=== PATIENT | male | born 1965 | race Caucasian/White ===

== ENCOUNTER 2019-12-01 16:21 | Inpatient (IN) | payer MEDICARE, SELFPAY ==
[2019-12-01] VITALS (11 sets, daily range): BP systolic 128–159; BP diastolic 65–102; PULSE 70–88; RESP 16–20; TEMP 36.3–36.4; O2SAT 95–100; BMI 29.7
--- NOTE | 2019-12-01 16:32 | ED_ITS ---
Entered by Lou Jamison, acting as scribe for Suzette Rob DO HPI - Chest Pain General: Chief Complaint: Chest Pain Stated Complaint: chest pressure, neck pain Time Seen by Provider: 12/01/19 16:31 Source: patient Mode of arrival: ambulatory Limitations: no limitations History of Present Illness: HPI narrative: 54 yo Male presents to ED with complaint of chest pain. Pt states that his pain is in his upper chest/neck area. Pt states that this does not feel like his prior cardiac episodes. Pt states the pain is on both sides of his neck and started about an hour ago. Pt states that his neck pain started when his heart rate sped up. Pt states that he has had a recent echocardiogram and stents placed 2 months ago. MD complaint: chest pain Onset (ago): hour(s) Timing of current episode: constant and still present Prior episodes: No Pain location: other (neck) Pain radiation: neck Pain scale (0-10): 6 Relieving factors: nothing Exacerbating factors: nothing Associated symptoms: Reports nausea and palpitations; Deny dyspnea or fever(s) Treatment prior to arrival: none Review of Systems Const: Denies: fever, chills, change in appetite or malaise Eyes: Denies: change in vision, blurry vision, eye discharge or eye redness ENMT: Denies: throat pain, uvular edema, painful swallowing, mouth pain, dental pain, nasal congestion or facial/sinus pain Card: Reports: chest pain and palpitations Resp: Denies: shortness of breath, productive cough, wheezing or coughing up blood GI: Reports: nausea : Denies: flank pain, painful urination, urinary frequency, urinary urgency or urinary hesitancy Musc: Reports: neck pain; Denies: back pain, extremity pain or extremity swelling Skin/Breast: Denies: rash, itching, redness, yellow skin or dry skin Neuro: Denies: headache, numbness in extremities, weakness in extremities, changes in sensation, lack of coordination or difficulty walking Psych: Denies: anxiety, depression, mood swings, panic attacks, sleeping less, suicidal ideation or homicidal ideation Endo: Denies: excessive urination, excessive thirst or tired all the time Richar/Lymph: Denies: easy bruising, petechiae or enlarged lymph nodes All/Imm: Denies: hives, throat swelling, facial swelling, acute wheezing or seasonal allergies PFSH ED PFSH: Statuses (acute, chronic, etc) shown below reflect problem list status as previously entered and may not be historically accurate Medical History HTN (hypertension) (Acute) Hypertriglyceridemia (Acute) ICD (implantable cardioverter-defibrillator) in place (Acute) Ischemic cardiomyopathy (Acute) Ventricular tachycardia (Acute) Surgical History S/P CABG (coronary artery bypass graft) (Acute) Family History Mother Hypertension Father Hypertension Social History Smoking and tobacco status: former smoker Physical Exam Const: COMMON NORMALS: no apparent distress, oriented x3, no limitations, healthy appearing, alert and well nourished GENERAL APPEARANCE: cooperative, comfortable, well kempt and well developed ORIENTATION/CONSCIOUSNESS: Yes awake, Yes oriented to person, Yes oriented to place and Yes oriented to time HENMT: COMMON NORMALS: normocephalic, head/scalp atraumatic, hearing grossly normal bilaterally, external ears normal, EAC's normal, TM's normal bilaterally, external nose normal, nasal mucous membranes and turbinates normal, moist oral mucous membranes, oropharynx normal, dentition normal and gingiva normal HEAD & SCALP: normal to inspection, normocephalic and atraumatic FACE & SINUS: normal facial exam NOSE: external nose normal and nasal mucous membranes and turbinates normal EXTERNAL EAR: Yes external ears normal EXTERNAL AUDITORY CANAL: EAC's normal TYMPANIC MEMBRANE: TM's normal bilaterally MOUTH: oral and palatal mucosa normal, lip normal and tongue normal THROAT: no uvular edema Eye: COMMON NORMALS: PERRL, EOMs intact bilaterally, conjunctivae normal, no scleral icterus and normal visual herbert by confrontation GENERAL EYE: normal appearance of both eyes and normal light reflex VISUAL ACUITY: Yes acuity normal ALIGNMENT: Yes alignment normal PERIORBITAL: periorbital findings normal EYELID: eyelids normal CONJUNCTIVA: Yes conjunctivae normal SCLERA: sclerae normal PUPIL: Yes PERRL and Yes accommodation reflex normal DIRECT OPHTHALMOSCOPY: Yes normal light reflex Neck/C-Spine: COMMON NORMALS: full ROM, no lymphadenopathy, supple, no meningeal signs and no JVD GENERAL: Yes normal visual inspection CAROTIDS: Yes normal carotid upstroke CERVICAL SPINE: Yes cervical ROM normal Lymph: LYMPHATIC: no lymphadenopathy noted Chest: COMMONS NORMALS: inspection of chest normal CHEST: Yes symmetrical chest wall rise Resp: COMMON NORMALS: normal respiratory effort, no retractions, no use of accessory muscles and clear to auscultation bilaterally EFFORT & INSPECTION: Yes able to speak in complete sentences and Yes symmetric chest movement AUSCULTATION: clear to auscultation bilaterally Cardio: COMMON NORMALS: no JVD, regular rate, regular rhythm, S1 normal heart sound, S2 normal heart sound, no murmurs and peripheral pulses 2+ throughout RATE: regular rate RHYTHM: regular rhythm HEART SOUNDS: S1 normal and S2 normal PERIPHERAL PULSES: pulses 2+ throughout GI: COMMON NORMALS: normal to inspection, nondistended, normoactive bowel sounds and non-tender : COMMON NORMALS: Yes no CVA tenderness BLADDER/KIDNEY EXAM: Yes no CVA tenderness Back/Pelvis: COMMON NORMALS: no CVA tenderness, thoracic and lumbar spine normal to inspection, no thoracic nor lumbar tenderness and thoraco-lumbar ROM normal Extremity: COMMON NORMALS: normal to inspection, full ROM, normal capillary refill, no calf tenderness and no pedal edema Neuro: COMMON NORMALS: oriented x3, CN's II-XII intact bilaterally, moves all extremities, no focal motor deficits, no sensory deficits noted and gait normal SENSORIUM/ORIENTATION: Yes alert, Yes oriented to person, Yes oriented to place and Yes oriented to time MENINGEAL SIGNS: Yes no meningeal signs SPEECH: speech normal GAIT: Yes normal gait MOTOR EXAM: strength 5/5 throughout, no pronator drift and no tremor noted Psych: COMMON NORMALS: mental status grossly normal, thought process normal, cooperative, affect normal, speech normal and activity/motor behavior normal APPEARANCE: Yes well kempt SPEECH: Yes normal speech THOUGHT PROCESS: normal thought process THOUGHT CONTENT: Yes normal thought content INSIGHT: insight good Skin: COMMON NORMALS: no rashes or lesions noted, no wounds, skin turgor normal and no jaundice GENERAL SKIN EXAM: no rashes or lesions noted and turgor normal Course ED course: Patient did well without further episodes of vtach after Lidocaine infusion. Labs essentially wnl, Dr Lau agrees to admit. Consultations: Consultation #1: Discussed with Dr Ron regarding dysrhythmia, advised Lidocaine, will consult with patient once admitted to medicine Vital Signs: Vital signs: Vital Signs Temperature 97.6 F 12/01/19 16:25 Pulse Rate 88 12/01/19 16:25 Respiratory Rate 18 12/01/19 18:01 Blood Pressure 159/102 12/01/19 16:25 Pulse Oximetry 98 12/01/19 16:25 MDM - Chest Pain Lab Data: Labs: Lab Results 12/01/19 12/01/19 12/01/19 Range/Units 16:35 16:35 16:35 WBC 8.6 (4.0-10.0) 10^3/ uL RBC 5.87 H (4.1-5.3) 10^6/u L Hgb 16.9 H (11.7-16.6) g/dL Hct 48.2 (42.0-52.0) % MCV 82.1 (80-94) fL MCH 28.8 (28.0-34.0) pg MCHC 35.1 (30.0-36.0) g/dL RDW 12.9 (12.1-15.1) % Plt Count 128 L (130-400) 10^3/c mm MPV 11.8 H (7.4-10.4) fL Neut % (Auto) 81.9 % Lymph % (Auto) 7.0 % [place] % (Auto) 8.3 % Eos % (Auto) 1.5 % Baso % (Auto) 0.5 % Neut # (Auto) 7.1 (1.8-7.7) 10^3/u L Lymph # (Auto) 0.6 L (0.8-4.8) 10^3/u L [place] # (Auto) 0.7 (0.2-0.9) 10^3/u L Eos # (Auto) 0.1 (0.0-0.8) 10^3/u L Baso # (Auto) 0.0 (0.0-0.1) 10^3/u L Nucleated RBC % (a uto) 0 % Nucleated RBCs # 0.0 /100WBC PT 13.50 H (10.5-13.3) SECO NDS INR 1.00 (0.8-1.2) APTT 29.2 (23.9-36.7) SECO NDS Sodium 130 L (136-145) mmol/L Potassium 3.9 (3.5-5.1) mmol/L Chloride 93 L (98-107) mmol/L Carbon Dioxide 22 (22-29) mmol/L Anion Gap 18.9 (5-19) BUN 11 (6-20) mg/dL Creatinine 0.7 (0.7-1.2) mg/dL GFR Calculation 116.7 (90-130) mL/min Glucose 245 H (65-115) mg/dL Calcium 9.8 (8.5-10.5) mg/dL Total Bilirubin 1.0 (0.15-1.2) mg/dL AST 19 (0-40) U/L ALT 24 (0-41) U/L Alkaline Phosphata se 79 (40-130) IU/L Troponin T Baselin e (0-15) ng/mL Total Protein 7.0 (6.6-8.7) g/dL Albumin 4.3 (3.5-5.2) g/dL Globulin 2.7 (1.3-4.6) g/dL 12/01/19 Range/Units 16:35 WBC (4.0-10.0) 10^3/ uL RBC (4.1-5.3) 10^6/u L Hgb (11.7-16.6) g/dL Hct (42.0-52.0) % MCV (80-94) fL MCH (28.0-34.0) pg MCHC (30.0-36.0) g/dL RDW (12.1-15.1) % Plt Count (130-400) 10^3/c mm MPV (7.4-10.4) fL Neut % (Auto) % Lymph % (Auto) % [place] % (Auto) % Eos % (Auto) % Baso % (Auto) % Neut # (Auto) (1.8-7.7) 10^3/u L Lymph # (Auto) (0.8-4.8) 10^3/u L [place] # (Auto) (0.2-0.9) 10^3/u L Eos # (Auto) (0.0-0.8) 10^3/u L Baso # (Auto) (0.0-0.1) 10^3/u L Nucleated RBC % (a uto) % Nucleated RBCs # /100WBC PT (10.5-13.3) SECO NDS INR (0.8-1.2) APTT (23.9-36.7) SECO NDS Sodium (136-145) mmol/L Potassium (3.5-5.1) mmol/L Chloride (98-107) mmol/L Carbon Dioxide (22-29) mmol/L Anion Gap (5-19) BUN (6-20) mg/dL Creatinine (0.7-1.2) mg/dL GFR Calculation (90-130) mL/min Glucose (65-115) mg/dL Calcium (8.5-10.5) mg/dL Total Bilirubin (0.15-1.2) mg/dL AST (0-40) U/L ALT (0-41) U/L Alkaline Phosphata se (40-130) IU/L Troponin T Baselin e 8 (0-15) ng/mL Total Protein (6.6-8.7) g/dL Albumin (3.5-5.2) g/dL Globulin (1.3-4.6) g/dL Discharge Plan Discharge Prescriptions: No Action aspirin 325 mg tablet 325 mg PO QDAY RF: 0 atorvastatin 80 mg tablet 80 mg PO QDAY RF: 0 clopidogrel [Plavix] 75 mg tablet 75 mg PO QDAY RF: 0 lisinopril 10 mg tablet 10 mg PO QDAY RF: 0 nitroglycerin [Nitrostat] 0.4 mg tablet, sublingual 0.4 mg SUBLINGUAL DIRECTED RF: 0 ranitidine HCl [Acid Control (ranitidine)] 150 mg tablet 150 mg PO BID RF: 0 sotalol 80 mg tablet 80 mg PO BID RF: 0 fenofibrate nanocrystallized [Tricor] 145 mg tablet 145 mg PO QDAY RF: 0 verapamil 120 mg capsule,ext rel. pellets 24 hr 120 mg PO QAM RF: 0 zolpidem 10 mg tablet 10 mg PO ONCE RF: 0 metformin 500 mg tablet 750 mg PO BID RF: 0 ranolazine [Ranexa] 500 mg tablet extended release 12 hr 250 mg PO BID RF: 0 Coding Level of Care Code ED Leno Sewer for Chg Fwd Exam Problem Focused The documentation recorded by the Yaquelin lucia Carmen, accurately reflects the service I personally performed and the decisions made by me, Suzette Rob, DO
--- NOTE | 2019-12-01 16:45 | XR_ITS ---
WS: [id number] ONE VIEW CHEST HISTORY: 54 years old Male with cp AP upright chest comparison 05/04/2019 FINDINGS: Accounting for lordotic technique, cardiomegaly and pulmonary venous congestion probably unchanged. P rior sternotomy and left chest single lead cardiac pacing device unchanged. No pneumothorax, pleural effusion, consolidation or atelectasis. No subdiaphragmatic free air. Well-visualized osseous structu res intact. XR/XR chest 1V portable [id number] IMPRESSION: No acute cardiopulmonary findings.
--- NOTE | 2019-12-01 16:45 | ECG_ITS ---
Measurements Intervals [place] Rate: 89 P: 59 NM: 216 QRS: 265 QRSD: 98 T: 74 QT: 377 QTc: 459 SINUS RHYTHM WITH FIRST DEGREE AV BLOCK POSSIBLE LEFT ATRIAL ENLARGEMENT [-0.1mV P WAVE IN V1/V2] INCOMPLETE RIGHT BUNDLE BRANCH BLOCK [90+ ms QRS DURATION, Compared to ECG 05/04/2019 06:15:28 Incomplete right bundle-branch block now present Sinus bradycardia no longer present Myocardial infarct finding no longer present Electronically Signed On 12-01-2019 22:17:21 HAND I [employer]ERMAL CUTTER by Anton Ron M.D. [email or web address]
[2019-12-01] MEDS: aspirin 81 mg Chew Tablet 324 MG PO (16:49)
[2019-12-01] MEDS: nitroglycerin 0.4 mg sublingual Tablet SUBLINGUAL (16:50)
[2019-12-01 17:18] LABS: Basophils % 0.5 %; Eosinophils # 0.1 10^3/uL (0.0-0.8); Eosinophils % 1.5 %; Hematocrit 48.2 % (42.0-52.0); Hemoglobin 16.9 g/dL (11.7-16.6); Lymphocytes # 0.6 10^3/uL (0.8-4.8); Mean Corpuscular HGB Conc 35.1 g/dL (30.0-36.0); Mean Corpuscular Hemoglobin 28.8 pg (28.0-34.0); Mean Corpuscular Volume 82.1 fL (80-94); Mean Platelet Volume 11.8 fL (7.4-10.4); Monocytes # 0.7 10^3/uL (0.2-0.9); Monocytes % 8.3 %; Neutrophils # 7.1 10^3/uL (1.8-7.7); Neutrophils % 81.9 %; Nucleated Red Blood Cells % 0 %; Platelet Count 128 10^3/cmm (130-400); Red Blood Count 5.87 10^6/uL (4.1-5.3); Red Cell Distribution Width 12.9 % (12.1-15.1); White Blood Count 8.6 10^3/uL (4.0-10.0)
[2019-12-01] MEDS: lidocaine drip 2,000 MG/500 ML PREMIX 15 MG IV (17:18)
[2019-12-01 17:25] LABS: Partial Thromboplastin Time 29.2 SECONDS (23.9-36.7)
[2019-12-01 17:26] LABS: Alanine Aminotransferase 24 U/L (0-41); Albumin Level 4.3 g/dL (3.5-5.2); Alkaline Phosphatase 79 IU/L (40-130); Anion Gap 18.9 (5-19); Aspartate Amino Transferase 19 U/L (0-40); Blood Urea Nitrogen 11 mg/dL (6-20); Calcium 9.8 mg/dL (8.5-10.5); Carbon Dioxide 22 mmol/L (22-29); Chloride 93 mmol/L (98-107); Globulin 2.7 g/dL (1.3-4.6); Glomerular Filtration Rate 116.7 mL/min (90-130); Glucose 245 mg/dL (65-115); Potassium 3.9 mmol/L (3.5-5.1); Sodium 130 mmol/L (136-145)
[2019-12-01 17:28] LABS: Troponin(5th) Baseline 8 ng/mL (0-15)
[2019-12-01] MEDS: morphine 4 mg/mL SDV 1 mL 2 MG IVP (18:01)
[2019-12-01] MEDS: sodium chloride 0.9% 1,000 ML 999 ML IV (18:32)
[2019-12-01 19:03] LABS: Troponin 5 2HR 9.41 ng/mL (0-15); Troponin 5 2HR Delta 1.41 ABS# (0-10)
--- NOTE | 2019-12-01 19:39 | CTR_ITS ---
PROCEDURE INFORMATION: Exam: CT Angiography Chest With Contrast Exam date and time: 12/01/2019 8:08 PM Age: 54 years old Clinical indication: Shortness of breath and tachypnea; Chest pain; Prior surgery; Surgery type: Stents, defib, pacemaker, open heart; Additional info: Chest pain, SOB, vtach TECHNIQUE: Imaging protocol: Computed tomographic angiography of the chest with intravenous contrast. 3D rendering: MIP and/or 3D reconstructed images were created by the technologist. Total DLP: 598.08 mGy-cm Radiation optimization: All CT scans at this facility use at least one of these dose optimization techniques: automated exposure control; mA and/or kV adjustment per patient size (includes targeted exams where dose is matched to clinical indication); or iterative reconstruction. Contrast material: OMNI 350; Contrast volume: 95 ml; Contrast route: IV; COMPARISON: CR XR chest 1V portable [id number] 12/01/2019 5:11 PM FINDINGS: Tubes, catheters and devices: A pacemaker device is present, and its leads are in appropriate position. Pulmonary arteries: There is no pulmonary embolus. Aorta: There is no aneurysm or dissection. Lungs: There are moderate emphysematous changes. There is very mild dependent atelectasis. Pleural space: Unremarkable. No pneumothorax. No pleural effusion. Heart: Sternotomy wires and mediastinal surgical clips are present, consistent with previous coronary arterial bypass grafting. Mediastinum: A small hiatal hernia is present. Liver: There is mild fatty infiltration liver. Gallbladder and bile ducts: There is cholelithiasis. No wall thickening or cholecystitis. Spleen: The spleen is enlarged measuring 16 cm in length. Lymph nodes: Unremarkable. No enlarged lymph nodes. Bones/joints: Unremarkable. No acute fracture. Soft tissues: Unremarkable. CT/CT angio chest PE protcl [id number] IMPRESSION: 1. There is no pulmonary embolus. Unremarkable aorta. 2. Incidental cholelithiasis.splenomegaly. Radiation Dose CTDIVOL = (mGy): DLP = 598.08 (mGy-cm)
--- NOTE | 2019-12-01 19:49 | PM.HP ---
Providers/Chief Complaint Admitting Physician: Saulo Lau MD Primary Care Provider: Temo Bajwa MD Chief Complaint: chest pressure, neck pain History of Present Illness Cy Bajwa is a 54 year old male with a past medical history of CAD status post quadruple bypass, status post stenting x2, last in April 2019, history of type 2 diabetes mellitus, hyperlipidemia, hypertriglyceridemia, GERD, history of ischemic cardiomyopathy, history of nonsustained V. tach/cardiac arrest status post ICD placement who presents to the emergency room due to 3-day history of shortness of breath, upper chest clavicular discomfort, lightheadedness, dizziness, and episode of chest palpitations this afternoon. Patient states that for the past 3 days he has felt more short of breath with exertion, he felt that this is more sudden in onset, he has been complaining of his upper chest discomfort/bilateral clavicular discomfort/sternal discomfort for the past few days, some epigastric pain, lightheadedness, dizziness. Denies calf pain, calf swelling, no recent travel, did have a cardiac cath in April 2019, does have a's family history of blood clots in his mother and his grandfather. No recent fevers, chills, URI symptoms, cough, sick contacts, recent travel. Patient states that this afternoon he felt his pacemaker kick in as he was having a feeling of chest palpitations, he said his heart rate was in the 140s to 150s, denies history of pacemaker going off, thus he came to the emergency room for evaluation. Patient states that he takes all his medication as prescribed. States that he has been doing fine otherwise. Denies smoking. Denies drug use. Denies drinking alcohol. Review of Systems Const: Denies: fever, chills, fatigue or malaise Eyes: Denies: change in vision or blurry vision ENMT: Denies: nasal congestion Card: Reports: palpitations and lightheadedness; Denies: chest pain Resp: Reports: shortness of breath; Denies: productive cough, non-productive cough or wheezing GI: Denies: abdominal pain, nausea, vomiting, vomiting blood, diarrhea, constipation, blood in stool or black tarry stool : Denies: flank pain, difficulty urinating, painful urination or urinary frequency Musc: Denies: neck pain or back pain Skin/Breast: Denies: rash Neuro: Denies: headache, dizziness or vertigo Psych: Denies: anxiety or depression Endo: Denies: excessive urination or excessive thirst Medications/Allergies Allergies Allergy/AdvReac Type Severity Reaction Status Date / Time amiodarone Allergy Severe Anaphylaxis Verified 11/15/19 09:54 Additional Medication Information Additional Medication Information: Aspirin 325 mg once daily Atorvastatin 80 mg once daily Plavix 75 mg once daily TriCor 145 mg once daily Lisinopril 10 mg once daily Metformin 750 twice daily Ranitidine 150 mg twice daily Ranexa 250 mg twice daily Sotalol 80 mg twice daily Verapamil 120 mg once daily Ambien 10 mg once daily PFSH Acute PFSH: Statuses (acute, chronic, etc) shown below reflect problem list status as previously entered and may not be historically accurate Medical History (Updated 12/01/19 @ 20:00 by Sebastian Reed MD) Coronary artery arteriosclerosis (Acute) Depression (Acute) HTN (hypertension) (Acute) Hypertriglyceridemia (Acute) ICD (implantable cardioverter-defibrillator) in place (Acute) Ischemic cardiomyopathy (Acute) Type 2 diabetes mellitus (Acute) Ventricular tachycardia (Acute) Vestibular neuronitis (Acute) Surgical History (Updated 12/01/19 @ 19:58 by Sebastian Reed MD) H/O elbow surgery (Acute) History of implantable cardiac defibrillator (ICD) (Acute) S/P appendectomy (Acute) S/P CABG (coronary artery bypass graft) (Acute) S/P cardiac catheterization (Acute) S/P shoulder surgery (Acute) Status post knee surgery (Acute) Family History Mother Hypertension Father Hypertension Social History (Updated 12/01/19 @ 19:58 by Sebastian Reed MD) Smoking and tobacco status: former smoker Alcohol intake: never Substance/Drug Use: never Vitals/I&O/Wt Last Vital Signs Temp 97.6 F 12/01/19 16:25 Pulse 77 12/01/19 19:32 Resp 18 12/01/19 19:32 BP 139/84 12/01/19 19:32 Pulse Ox 97 12/01/19 19:32 Weight last 48 hrs Weight 107.955 kg Physical Exam Const: COMMON NORMALS: no apparent distress and oriented x3 GENERAL APPEARANCE: cooperative and comfortable HENMT: COMMON NORMALS: normocephalic HEAD & SCALP: normocephalic Eye: COMMON NORMALS: PERRL, EOMs intact bilaterally and no papilledema GENERAL EYE: normal appearance of both eyes PUPIL: Yes PERRL DIRECT OPHTHALMOSCOPY: Yes no papilledema Neck/C-Spine: COMMON NORMALS: full ROM, no lymphadenopathy, no JVD and thyroid normal THYROID: thyroid normal Lymph: LYMPHATIC: no lymphadenopathy noted Chest: COMMONS NORMALS: inspection of chest normal CHEST: Yes symmetrical chest wall rise and Yes localized rib tenderness with anteroposterior compression (Along the sternoclavicular joint, along the costochondral junction) Location: 1st rib, 2nd rib, 3rd rib and 4th rib Resp: COMMON NORMALS: normal respiratory effort, no retractions, no use of accessory muscles and clear to auscultation bilaterally AUSCULTATION: clear to auscultation bilaterally Cardio: COMMON NORMALS: no JVD, regular rate, regular rhythm, S1 normal heart sound, S2 normal heart sound, no gallops, no clicks and no murmurs RATE: regular rate RHYTHM: regular rhythm HEART SOUNDS: S1 normal and S2 normal GI: COMMON NORMALS: normal to inspection, nondistended, normoactive bowel sounds, soft to palpation, non-tender and no hepatosplenomegaly PALPATION: Yes soft and Yes no hepatosplenomegaly Extremity: COMMON NORMALS: normal to inspection, full ROM and no pedal edema Neuro: COMMON NORMALS: oriented x3, CN's II-XII intact bilaterally, moves all extremities and no focal motor deficits Psych: COMMON NORMALS: mental status grossly normal, thought process normal and cooperative THOUGHT PROCESS: normal thought process Data : 12/01/19 16:35 12/01/19 16:35 A&P Assessment and plan (1) Chest discomfort: -Patient has tenderness along the sternoclavicular, costochondral junctions first 1-4 ribs -Pleuritic pain, shortness of breath -No fevers, chills, cough -Baseline troponin VIII, 120-minute 9.41, delta troponin I 0.41 -EKG shows incomplete RBBB, first-degree AV block, no other significant ST-T wave changes Plan: -We will do CT Angio of the chest to rule out pulmonary embolism -Patient's chest discomfort seems a lot like costochondritis Status: Acute Code(s): R07.89 - Other chest pain (2) Ventricular tachycardia: -Had 7 episodes of V. tach in the ER, longest episode was 9 beats Plan: -Cardiology has been consulted -Currently on a lidocaine drip -Patient is being admitted to the ICU Status: Acute Code(s): I47.2 - Ventricular tachycardia (3) Hyponatremia: Will recheck sodium with morning labs Status: Acute Code(s): E87.1 - Hypo-osmolality and hyponatremia (4) Hypertriglyceridemia: Status: Acute Code(s): E78.1 - Pure hyperglyceridemia (5) Ischemic cardiomyopathy: Status: Acute Code(s): I25.5 - Ischemic cardiomyopathy (6) ICD (implantable cardioverter-defibrillator) in place: Status: Acute Code(s): Z95.810 - Presence of automatic (implantable) cardiac defibrillator (7) HTN (hypertension): Status: Acute Code(s): I10 - Essential (primary) hypertension (8) Type 2 diabetes mellitus: Low-dose sliding scale Status: Acute Code(s): E11.9 - Type 2 diabetes mellitus without complications Attestations Medical Necessity Statement*: Patient requires hospitalization, outpatient, with observation for V. tach Coding Level of Care Code Acute Facilities Coordinator for [facility] Fwd Diagnoses Chest discomfort R07.89 Ventricular tachycardia I47.2 Hyponatremia E87.1 Hypertriglyceridemia E78.1 Ischemic cardiomyopathy I25.5 ICD (implantable cardioverter-defibrillator) in place Z95.810 HTN (hypertension) I10 Type 2 diabetes mellitus E11.9
[2019-12-01] MEDS: iohexol 350 mg/mL 100 mL Btl 95 ML IV (20:20)
[2019-12-01 20:52] LABS: Magnesium 1.5 mg/dL (1.7-2.3); Phosphorus 1.9 mg/dL (2.5-4.5)
[2019-12-01 20:56] LABS: Influenza A by IFA Negative (Negative); Influenza B by IFA Negative (Negative)
[2019-12-01] MEDS: enoxaparin 40 mg/0.4 mL Syringe SUBCUT (21:19)
[2019-12-01] MEDS: ondansetron 2 mg/ML SDV 2 mL 4 MG IVP (22:09)
--- NOTE | 2019-12-01 22:13 | P.CONIM_ITS ---
Providers/Reason For Consult Consulting Physican/Specialty*: Cardiology Reason for Consult*: Ventricular tachycardia Chest pain Extensive history of coronary disease with bypass surgery Attending Physician: Saulo Lau MD Primary Care Provider: Temo Bajwa MD History of Present Illness History of Present Illness Cy Bajwa is a 54 year old male past medical history significant for history of recurrent ventricular arrhythmias requiring ICD device, history of nonischem ic first and later ischemic cardiomyopathy, history of moderately depressed LV function 45%, history of CABG, history of stent to proximal and distal saphenous venous graft to RCA in 2018, history of uncontrolled diabetes mellitus, history of hypertriglyceridemia who is well maintained on sotalol 80 mg twice daily and verapamil at 120 mg for ventricular tachycardia presented to emergency room for not feeling well. He was complaining of chest pressure racing of the heart dizziness and feeling of impending doom. On the telemetry monitoring he was noted to be in nonsustained ventricular tachycardia it is the reason he was admitted. Initial cardiac markers were not concerned of ACS. He was started on lidocaine drip as patient claims amiodarone toxicity which is questionable. ICD interrogation showed multiple episodes of ventricular tachycardia and atrial tachy therapy without any shock delivered. Review of Systems Const: Denies: fever, chills, change in appetite, fatigue or malaise Eyes: Denies: change in vision, blurry vision, eye discharge or eye redness ENMT: Denies: throat pain, uvular edema, painful swallowing, mouth pain, dental pain, nasal congestion or facial/sinus pain Card: Reports: palpitations and lightheadedness; Denies: chest pain Resp: Reports: shortness of breath; Denies: productive cough, non-productive cough, wheezing or coughing up blood GI: Denies: abdominal pain, nausea, vomiting, vomiting blood, diarrhea, constipation, blood in stool or black tarry stool : Denies: flank pain, difficulty urinating, painful urination, urinary frequency, urinary urgency or urinary hesitancy Musc: Denies: neck pain, back pain, extremity pain or extremity swelling Skin/Breast: Denies: rash, itching, redness, yellow skin or dry skin Neuro: Denies: headache, numbness in extremities, weakness in extremities, changes in sensation, lack of coordination, difficulty walking, dizziness or vertigo Psych: Denies: anxiety, depression, mood swings, panic attacks, sleeping less, suicidal ideation or homicidal ideation Endo: Denies: excessive urination, excessive thirst or tired all the time Richar/Lymph: Denies: easy bruising, petechiae or enlarged lymph nodes All/Imm: Denies: hives, throat swelling, facial swelling, acute wheezing or seasonal allergies Meds/Allergies Home Medications and Allergies Home Medications Medication Instructions Recorded Confirmed Type aspirin 325 mg tablet 325 mg PO QDAY 11/15/19 12/01/19 History atorvastatin 80 mg tablet 80 mg PO QDAY 11/15/19 12/01/19 History clopidogrel 75 mg tablet 75 mg PO QDAY 11/15/19 12/01/19 History fenofibrate nanocrystallized 145 145 mg PO QDAY 11/15/19 12/01/19 History mg tablet lisinopril 10 mg tablet 10 mg PO QDAY 11/15/19 12/01/19 History metformin 500 mg tablet 750 mg PO BID tab 11/15/19 12/01/19 History nitroglycerin 0.4 mg sublingual 0.4 mg SUBLINGUAL DIRECTED tab 11/15/19 12/01/19 History tablet ranitidine HCl 150 mg tablet 150 mg PO BID 11/15/19 12/01/19 History sotalol 80 mg tablet 80 mg PO BID 11/15/19 12/01/19 History verapamil 120 mg 24 hr 120 mg PO QAM 11/15/19 12/01/19 History capsule,extended release zolpidem 10 mg tablet 10 mg PO ONCE 11/15/19 12/01/19 History ranolazine 500 mg tablet,extended 250 mg PO BID tab 11/17/19 12/01/19 History release,12 hr magnesium 200 mg PO DAILY 12/01/19 12/01/19 History Allergies Allergy/AdvReac Type Severity Reaction Status Date / Time amiodarone Allergy Severe Anaphylaxis Verified 11/15/19 09:54 Current Medications Current Medications Generic Name Dose Route Start Last Admin Trade Name Freq PRN Reason Stop Dose Admin Enoxaparin Sodium 40 mg 12/01/19 20:07 12/01/19 21:19 Lovenox SUBCUT 40 mg Q24H YURI Administration Lidocaine HCl/Dextrose 2,000 mg in 500 mls @ 15 mls/hr 12/01/19 17:15 12/01/19 17:18 Lidocaine Drip IV 1 mg/min .Q24H YURI 15 mls/hr Administration 1 MG/MIN Nitroglycerin 0.4 mg 12/01/19 16:45 12/01/19 16:50 Nitrostat SUBLINGUAL 0.4 mg Q5M PRN Administration CHEST PAIN Ondansetron HCl 4 mg 12/01/19 18:24 12/01/19 22:09 Zofran IVP 4 mg Q6H PRN Administration NAUSEA AND VOMITING Zolpidem Tartrate 10 mg 12/01/19 20:07 12/01/19 21:20 Ambien PO 10 mg ONCE YURI Administration Additional Medication Information Aspirin 325 mg once daily Atorvastatin 80 mg once daily Plavix 75 mg once daily TriCor 145 mg once daily Lisinopril 10 mg once daily Metformin 750 twice daily Ranitidine 150 mg twice daily Ranexa 250 mg twice daily Sotalol 80 mg twice daily Verapamil 120 mg once daily Ambien 10 mg once daily PFSH Acute PFSH: Statuses (acute, chronic, etc) shown below reflect problem list status as previously entered and may not be historically accurate Medical History (Updated 12/01/19 @ 20:00 by Sebastian Reed MD) Coronary artery arteriosclerosis (Acute) Depression (Acute) HTN (hypertension) (Acute) Hypertriglyceridemia (Acute) ICD (implantable cardioverter-defibrillator) in place (Acute) Ischemic cardiomyopathy (Acute) Type 2 diabetes mellitus (Acute) Ventricular tachycardia (Acute) Vestibular neuronitis (Acute) Surgical History (Updated 12/01/19 @ 19:58 by Sebastian Reed MD) H/O elbow surgery (Acute) History of implantable cardiac defibrillator (ICD) (Acute) S/P appendectomy (Acute) S/P CABG (coronary artery bypass graft) (Acute) S/P cardiac catheterization (Acute) S/P shoulder surgery (Acute) Status post knee surgery (Acute) Family History Mother Hypertension Father Hypertension Social History (Updated 12/01/19 @ 19:58 by Sebastian Reed MD) Smoking and tobacco status: former smoker Alcohol intake: never Substance/Drug Use: never Vitals/I&O/Wt Last Vital Signs Temp 97.4 F L 12/01/19 20:30 Pulse 73 12/01/19 21:30 Resp 17 12/01/19 21:30 BP 149/95 12/01/19 21:30 Pulse Ox 100 12/01/19 21:30 12/01/19 12/01/19 12/01/19 06:59 14:59 22:59 Intake Total 360 / 360 Balance 360 / 360 Weight last 48 hrs Weight 238 lb Physical Exam Narrative: EXAM NARRATIVE: GENERAL: Patient is alert, awake and oriented x3. NECK: No jugular vein distension. HEENT: No cyanosis. No icterus. No pallor. HEART: Regular S1 and S2. No murmur, rub or gallop. LUNGS: Clear to auscultate bilaterally. ABDOMEN: Soft, nontender and nondistended. Positive bowel sounds. No guarding, rebound or tenderness. CENTRAL NERVOUS SYSTEM: Grossly nonfocal. EXTREMITIES: Lower extremities without edema bilaterally. Pulses palpable in the lower extremities, both dorsalis pedis and posterior tibial. HENMT: THROAT: no uvular edema A&P Assessment and plan (1) Ischemic cardiomyopathy: Patient has significant history of coronary artery disease history of CABG. Recent worsening of arrhythmia or ventricular tachycardia despite of sotalol and lidocaine may warrant further investigation with left heart cath in order to rule out ischemic etiology. Status: Acute Code(s): I25.5 - Ischemic cardiomyopathy (2) Ventricular tachycardia: We have started patient on lidocaine drip. I will optimize sotalol. If ruled out for ischemic etiology patient need possible VT interrogation. We will refer him to EP cardiology service once I have more information . Keep potassium around 4 and mag more than 2. Status: Acute Code(s): I47.2 - Ventricular tachycardia (3) HTN (hypertension): Well-controlled. Continue medicine Status: Acute Code(s): I10 - Essential (primary) hypertension (4) Hypertriglyceridemia: Difficult to control despite of on statin fenofibrate's and fish oil. Patient require good glycemic control in order to control the triglycerides. He is working hard on his lifestyle modification. Status: Acute Code(s): E78.1 - Pure hyperglyceridemia (5) Type 2 diabetes mellitus: As per medicine Status: Acute Code(s): E11.9 - Type 2 diabetes mellitus without complications (6) Chest discomfort: Patient will be going for left heart cath tomorrow for possible ischemic symptoms. Further plan will advise as per progress of the patient. For now continue medical management as instructed.. Status: Acute Code(s): R07.89 - Other chest pain (7) Hyponatremia: As per medicine it will be addressed Status: Acute Code(s): E87.1 - Hypo-osmolality and hyponatremia Coding Level of Care Code New Pt Acute Garment Parts Cutter Hand for Chg Fwd Patient Type New History Comprehensive Exam Comprehensive Medical Decision Making High Complexity Diagnoses Ischemic cardiomyopathy I25.5 Ventricular tachycardia I47.2 HTN (hypertension) I10 Hypertriglyceridemia E78.1 Type 2 diabetes mellitus E11.9 Chest discomfort R07.89 Hyponatremia E87.1
--- NOTE | 2019-12-01 22:29 | PC.NURSE ---
Pacemaker Interrogation preformed at this time. Pt has [place] [employer] pacer. Company was called and are awaiting fax.
[2019-12-01] MEDS: magnesium sulfate premix 2 GM/50 ML PIGGYBACK IV (22:54)
[2019-12-01 23:03] LABS: Troponin T (5th) Once 8 ng/mL (0-15)
[2019-12-01] MEDS: atorvastatin 40 mg Tablet 80 MG PO (23:06)
[2019-12-01] MEDS: sotalol 80 mg Tablet PO (23:06)
[2019-12-01] MEDS: ranolazine (12HR) 500 mg Tablet 250 MG PO (23:26)
[2019-12-01] MEDS: LORazepam 2 mg/mL INJ 1 mL 1 MG IVP (23:43)
--- NOTE | 2019-12-01 23:52 | PC.NURSE ---
Dr. Ron was notified by phone of multiple frequent non-sustaining runs of Vtach ranging from 3 beats to 10 beats each time and pt continues to complain of medial chest pressure. Dr. Ron was notified of events and that Lidocaine was titrated to 2mg and was okay with rate change.
[2019-12-02] VITALS (35 sets, daily range): BP systolic 101–151; BP diastolic 64–91; PULSE 54–112; RESP 12–25; O2SAT 4–100
[2019-12-02] MEDS: ALPRAZolam 0.25 mg Tablet PO ×2 (00:52→20:41)
[2019-12-02] MEDS: sotalol 80 mg Tablet 40 MG PO (00:52)
--- NOTE | 2019-12-02 01:03 | ECG_ITS ---
Measurements Intervals [place] Rate: 99 P: 52 DC: 209 QRS: -80 QRSD: 105 T: 70 QT: 349 QTc: 449 SINUS RHYTHM WITH FREQUENT VENTRICULAR PREMATURE COMPLEXES INCOMPLETE RIGHT BUNDLE BRANCH BLOCK [90+ ms QRS DURATION, TERMINAL R IN V1/V2, 40+ ms S IN I/aVL/V4/V5/V6] POSSIBLE ANTERIOR MYOCARDIAL INFARCTION [30 ms Q WAVE IN V3/V4, OR R < 0.2 mV IN V4], OF INDETERMINATE AGE INFERIOR MYOCARDIAL INFARCTION [40+ ms Q WAVE AND/OR ST/T ABNORMALITY IN II/aVF], OF INDETERMINATE AGE WARNING: DATA QUALITY MAY AFFECT INTERPRETATION Compared to ECG 12/01/2019 16:29:25 Ventricular premature complex(es) now present Myocardial infarct finding now present First degree AV block no longer present Electronically Signed On 12-03-2019 0:21:22 [employer] by Anton Ron M.D. [email or web address]
--- NOTE | 2019-12-02 02:00 | PC.NURSE ---
Pt converted to sinus rhythm without PVC's. Lidocaine drip titrated to 1mg. Will continue to monitor.
[2019-12-02 04:19] LABS: Glucose Point of Care 176 mg/dL (70-110)
[2019-12-02 05:02] LABS: Partial Thromboplastin Time 33.5 SECONDS (23.9-36.7)
[2019-12-02 05:10] LABS: Chol HDL Ratio 5.56 mg/dL (1.0-5.00); Cholesterol 139 mg/dL (0-200); HDL Cholesterol 25 mg/dL (60-100); Phosphorus 4.2 mg/dL (2.5-4.5); Triglycerides 420 mg/dL (0-150)
[2019-12-02 05:11] LABS: Alanine Aminotransferase 22 U/L (0-41); Alkaline Phosphatase 66 IU/L (40-130); Anion Gap 17.8 (5-19); Aspartate Amino Transferase 18 U/L (0-40); Blood Urea Nitrogen 12 mg/dL (6-20); Calcium 9.1 mg/dL (8.5-10.5); Carbon Dioxide 21 mmol/L (22-29); Chloride 99 mmol/L (98-107); Globulin 2.7 g/dL (1.3-4.6); Glucose 229 mg/dL (65-115); Potassium 3.8 mmol/L (3.5-5.1); Sodium 134 mmol/L (136-145); Total Bilirubin 0.8 mg/dL (0.15-1.2); Total Protein 6.7 g/dL (6.6-8.7)
[2019-12-02 05:19] LABS: Basophils % 0.3 %; Eosinophils # 0.1 10^3/uL (0.0-0.8); Eosinophils % 1.2 %; Hemoglobin 15.8 g/dL (11.7-16.6); Lymphocytes # 0.8 10^3/uL (0.8-4.8); Lymphocytes % 12.4 %; Mean Corpuscular HGB Conc 35.1 g/dL (30.0-36.0); Mean Corpuscular Volume 82.7 fL (80-94); Mean Platelet Volume 11.5 fL (7.4-10.4); Monocytes # 0.8 10^3/uL (0.2-0.9); Monocytes % 12.7 %; Neutrophils # 4.7 10^3/uL (1.8-7.7); Neutrophils % 72.8 %; Nucleated Red Blood Cells % 0 %; Platelet Count 127 10^3/cmm (130-400); Red Blood Count 5.44 10^6/uL (4.1-5.3); Red Cell Distribution Width 12.9 % (12.1-15.1); White Blood Count 6.5 10^3/uL (4.0-10.0)
[2019-12-02 05:30] LABS: LDL Cholesterol Direct 64 mg/dL (0-100)
[2019-12-02 05:45] LABS: Estmated Average Glucose 206; Hemoglobin A1C 8.8 % (4.0-6.0)
[2019-12-02] MEDS: acetaminophen 325 mg Tablet 650 MG PO (07:53)
[2019-12-02 08:06] LABS: Glucose Point of Care 221 mg/dL (70-110)
[2019-12-02] MEDS: atorvastatin 40 mg Tablet 80 MG PO (09:01)
[2019-12-02] MEDS: lisinopril 10 mg Tablet PO (09:02)
[2019-12-02] MEDS: clopidogrel 75 mg Tablet PO (09:02)
[2019-12-02] MEDS: sotalol 80 mg Tablet PO ×2 (09:02→17:55)
[2019-12-02] MEDS: aspirin 325 mg Tablet PO (09:02)
[2019-12-02] MEDS: fenofibrate 145 mg Tablet PO (09:02)
[2019-12-02] MEDS: ranolazine (12HR) 500 mg Tablet 250 MG PO ×2 (09:03→20:40)
[2019-12-02 10:35] LABS: Alanine Aminotransferase 23 U/L (0-41); Albumin Level 4.3 g/dL (3.5-5.2); Alkaline Phosphatase 68 IU/L (40-130); Anion Gap 16.9 (5-19); Aspartate Amino Transferase 18 U/L (0-40); Blood Urea Nitrogen 12 mg/dL (6-20); Calcium 9.7 mg/dL (8.5-10.5); Carbon Dioxide 23 mmol/L (22-29); Chloride 100 mmol/L (98-107); Globulin 2.5 g/dL (1.3-4.6); Glucose 257 mg/dL (65-115); Potassium 3.9 mmol/L (3.5-5.1); Sodium 136 mmol/L (136-145); Total Protein 6.8 g/dL (6.6-8.7)
--- NOTE | 2019-12-02 10:47 | P.PN_ITS ---
Subjective Subjective: Interval history: Admitted last night. H&P and labs noted. Patient has been off lidocaine drip since midnight. Patient's heart rate on examination today is running between 60-70 systolic at sinus rhythm. On interviewing patient was made to stand up and walk in the room heart rate went up to 80 bpm without any VPCs. Patient complains of mild nausea but no vomiting. Patient states usually when he walks in the last couple of weeks he has been having mild shortness of breath and chest pain. Medications: Medication Review Details: Aspirin 325 mg once daily Atorvastatin 80 mg once daily Plavix 75 mg once daily TriCor 145 mg once daily Lisinopril 10 mg once daily Metformin 750 twice daily Ranitidine 150 mg twice daily Ranexa 250 mg twice daily Sotalol 80 mg twice daily Verapamil 120 mg once daily Ambien 10 mg once daily Vitals/I&O/Wt Last Vital Signs Temp 97.4 F L 12/01/19 20:30 Pulse 68 12/02/19 10:14 Resp 16 12/02/19 10:14 BP 128/76 12/02/19 10:14 Pulse Ox 94 12/02/19 10:14 12/01/19 12/02/19 12/02/19 22:59 06:59 14:59 Intake Total 360 / 155 226.4120 / 1014.0909 50 / 50 Output Total 275 / 275 1925 / 2200 360 / 360 Balance 85 / 85 -1270.9091 / -1185.9091 -310 / -310 Weight last 48 hrs Weight 107.955 kg Physical Exam Narrative: EXAM NARRATIVE: General: No acute distress, AO x3 HEENT: PERRLA, pupils bilaterally equal and reactive Chest: Normal vesicular breath sounds, no added sounds, equal good air entry bilaterally, healthy ICD pocket noticed in left upper chest. CVS: S1-S2 regular, no murmurs, no tachycardia, no gallops, no rubs Abdomen: Soft, nontender, no organomegaly, bowel sounds present Neuro: No focal deficits, no facial deformity, AO x3, power 5/5 in all limbs Data : 12/02/19 04:23 12/02/19 09:45 A&P Assessment and plan (1) Ventricular tachycardia: -Had 7 episodes of V. tach in the ER, longest episode was 9 beats Plan: -Cardiology has been consulted -Currently on a lidocaine drip -Patient is being admitted to the ICU Status: Acute Code(s): I47.2 - Ventricular tachycardia (2) Ischemic cardiomyopathy: Status: Acute Code(s): I25.5 - Ischemic cardiomyopathy (3) ICD (implantable cardioverter-defibrillator) in place: Status: Acute Code(s): Z95.810 - Presence of automatic (implantable) cardiac defibrillator (4) Chest discomfort: Status: Acute Code(s): R07.89 - Other chest pain (5) Hyponatremia: Will recheck sodium with morning labs Status: Acute Code(s): E87.1 - Hypo-osmolality and hyponatremia (6) Hypertriglyceridemia: Status: Acute Code(s): E78.1 - Pure hyperglyceridemia (7) HTN (hypertension): Status: Acute Code(s): I10 - Essential (primary) hypertension (8) Type 2 diabetes mellitus: Low-dose sliding scale Status: Acute Code(s): E11.9 - Type 2 diabetes mellitus without complications Additional A&P Information Multiple episodes of nonsustained V. tach: V. tach terminated by overdrive pacing from ICD. Cause is unknown though given patient's history of vasculopathy cannot rule out acute coronary syndrome even though his troponins have remained negative. Flu swab negative on admission. Patient does not have any other symptoms or history of viral infections. We will check drug screen from urine and add alcohol level to her blood sample from admission. Will discuss case with Dr. Ron and keep patient n.p.o. for now for a possible c ath later in the day to rule out any coronary event. Most recent Lexiscan 2019 IMPRESSIONS 1. Small sized perfusion abnormality of mid anterolateral wall, may represent old myocardial infarction or attenuation artifact. 2. Small sized perfusion abnormality of mild severity of basal inferolateral wall on stress images. This is likely suggestive of attenuation artifact. However, small area of ischemia in circumflex territory cannot be completely ruled out. 3. The left ventricular ejection fraction is mildly reduced with a value of 47%. 4. There is mildly decreased global wall thickening. And echo in 2019 showed an EF of 62% with hypokinesia of septum with trace MR and IN Continue with aspirin, atorvastatin, fenofibrate, Plavix. Continue with home dose of sotalol and verapamil. Lipid panel reviewed. Type 2 diabetes mellitus: HbA1c 8.8. Continue with moderate insulin sliding scale and Accu-Cheks before meals and at bedtime. Full code Lovenox for DVT prophylaxis PUD prophylaxis not required at present. Attestations Medical Necessity Statement*: Needs controlled hospitalization for management of nonsustained V. tach Critical Care Time: Critical Care Time (min): 50 Coding Level of Care Code Acute Phlebotomy Services Representative for Chg Fwd Diagnoses Ventricular tachycardia I47.2 Ischemic cardiomyopathy I25.5 ICD (implantable cardioverter-defibrillator) in place Z95.810 Chest discomfort R07.89 Hyponatremia E87.1 Hypertriglyceridemia E78.1 HTN (hypertension) I10 Type 2 diabetes mellitus E11.9
--- NOTE | 2019-12-02 11:21 | PC.CHAP ---
Pastoral Care Encounter/Spiritual Assessment Type of Contact [] Declined cap machine operator visit [] Patient/Family/Request visit [] Outpatient visit [] Follow-up visit [] Physician referral [] Code/Alert [x] Routine visit [] Staff referral [] Actively dying [] Patient sleeping [] Family support [] [] Out of room [] Palliative care [] [] Receiving care in room [] Pre-surgical visit [] Trauma [] Long length of stay [] ICU visit [] Other: Relational/Emotional Strength [] Patient feels connected with others/family/visitors/staff [] Distress [] Loneliness/isolation [] Abandonment Spirituality of Patient [x] Person of Lois [] Attends Congregational of their Lois [x] Believes in Prayer [] Reads Bible or Catholic materials [] There are Spiritual issues to be addressed Vaccine Customer Representative Interventions [x] Prayer [x] Active listening [x] Non-anxious presence [] Spiritual/emotional support [] Crisis/trauma care [] Spiritual counseling [] Bereavement support [] Provided bereavement packet [] Provided Bible/devotional materials [] Provided toy/stuffed animal, coloring book to patient or family member [] Provided Communion [] Anointing/[place] [] Salvation [] Completed spiritual assessment [] Other: Impact on Illness or Injury [] Angry [] Fearful [] Anxious [] Often cries [] Exhaustion [] Unable to work [] Unable to attend gnosticism [] Unable to walk/stand [] Unable to read [] Unable to drive [] Unable to eat/drink [] Unable to sleep [] Unable to be with family [] Patient intubated [] Other: Summary Prayed for him after visit, per request Time spent with patient
[2019-12-02 11:27] LABS: Glucose Point of Care 223 mg/dL (70-110)
--- NOTE | 2019-12-02 11:40 | PC.NURSE ---
Morning insulin given at 0900. Charted time iwas later as computer timed out.
[2019-12-02 11:46] LABS: Alcohol Level < 10 mg/dL (0-10)
--- NOTE | 2019-12-02 11:47 | P.PN_ITS ---
Subjective Subjective: Interval history: Patient continues to have multiple episode of nonsustained ventricular tachycardia finally got under control after increasing sotalol and lidocaine drip. He also complained of chest pain but troponin remains negative. Medications: Medication Review Details: Aspirin 325 mg once daily Atorvastatin 80 mg once daily Plavix 75 mg once daily TriCor 145 mg once daily Lisinopril 10 mg once daily Metformin 750 twice daily Ranitidine 150 mg twice daily Ranexa 250 mg twice daily Sotalol 80 mg twice daily Verapamil 120 mg once daily Ambien 10 mg once daily Vitals/I&O/Wt Last Vital Signs Temp 97.4 F L 12/01/19 20:30 Pulse 68 12/02/19 10:14 Resp 16 12/02/19 10:14 BP 128/76 12/02/19 10:14 Pulse Ox 94 12/02/19 10:14 12/01/19 12/02/19 12/02/19 22:59 06:59 14:59 Intake Total 360 / 869 387.0271 / 1014.0909 50 / 50 Output Total 275 / 275 1925 / 2200 360 / 360 Balance 85 / 85 -1270.9091 / -1185.9091 -310 / -310 Weight last 48 hrs Weight 238 lb Physical Exam Narrative: EXAM NARRATIVE: GENERAL: Patient is alert, awake and oriented x3. NECK: No jugular vein distension. HEENT: No cyanosis. No icterus. No pallor. HEART: Regular S1 and S2. No murmur, rub or gallop. LUNGS: Clear to auscultate bilaterally. ABDOMEN: Soft, nontender and nondistended. Positive bowel sounds. No guarding, r ebound or tenderness. CENTRAL NERVOUS SYSTEM: Grossly nonfocal. EXTREMITIES: Lower extremities without edema bilaterally. Pulses palpable in the lower extremities, both dorsalis pedis and posterior tibial. Data : 12/03/19 03:41 12/03/19 11:00 A&P Assessment and plan (1) Ischemic cardiomyopathy: Patient has significant history of ischemic cardiomyopathy with coronary artery bypass surgery and stents in venous graft. ICD interrogation and telemetry is suggestive of nonsustained ventricle tachycardia multiple episode which is monomorphic. He is also complaining of chest pain. Currently he is stable on lidocaine drip and sotalol. I would like to proceed with left heart cath for further investigation Status: Acute Code(s): I25.5 - Ischemic cardiomyopathy (2) Ventricular tachycardia: Currently well controlled on lidocaine drip and sotalol. Would like to rule out ischemic component to recurrent ventricle tachycardia difficult to control on sotalol. He claims allergy to amiodarone which is questionable. Continue lidocaine drip for now. Left heart cath today patient has been explained all risk benefits and alternatives for the procedure. He would like to proceed with left heart cath. Patient was also given magnesium last night. Status: Acute Code(s): I47.2 - Ventricular tachycardia (3) HTN (hypertension): Well-controlled. Continue medicine Status: Acute Code(s): I10 - Essential (primary) hypertension (4) Hypertriglyceridemia: Difficult to control despite of on statin fenofibrate's and fish oil. Patient require good glycemic control in order to control the triglycerides. He is working hard on his lifestyle modification. Status: Acute Code(s): E78.1 - Pure hyperglyceridemia (5) Type 2 diabetes mellitus: As per medicine Status: Acute Code(s): E11.9 - Type 2 diabetes mellitus without complications (6) Chest discomfort: Status: Acute Code(s): R07.89 - Other chest pain (7) Hyponatremia: As per medicine it will be addressed Status: Acute Code(s): E87.1 - Hypo-osmolality and hyponatremia Attestations Medical Necessity Statement*: Require continuation hospitalization for above defined care. Coding Level of Care Code Established Pt Acute Financial Systems Administrator for Artis Camacho Patient Type Established Medical Decision Making Moderate Complexity Diagnoses Ischemic cardiomyopathy I25.5 Ventricular tachycardia I47.2 HTN (hypertension) I10 Hypertriglyceridemia E78.1 Type 2 diabetes mellitus E11.9 Chest discomfort R07.89 Hyponatremia E87.1
--- NOTE | 2019-12-02 12:56 | XACV_ITS ---
Exam Room: [facility] Ht: 191 cm Wt: 107 kg BSA: 2.39 m2 Gender: Male : 1965 Any Known Allergies: Other Exam Priority: Routine Procedure(s): Procedure Description: Diagnostic procedure Procedure Description: PCI procedure Procedure Description: Left Heart Catheterization Procedure Description: ADHIKARI Graft Catheterization Procedure Description: Drug Eluting Coronary Stent Procedure Description: Miscellaneous Procedure Description: ACT Diagnostic Findings LM has 0% stenosis. CX has 0% stenosis. mLAD: Severe 100% stenosis, JAMIL: 0 flow. 1st OM: Severe 100% stenosis, JAMIL: 0 flow. pRCA to mRCA: Severe 95% stenosis, JAMIL: 2 flow. 4 grafts visualized. ADHIKARI to mLAD: patent. SVG to 2nd Diag: patent. SVG to 1st OM: 85% stenosis, JAMIL: 2 flow. SVG to dRCA: patent. Coronary angiography shows right dominance. Interventional Findings SVG to 1st OM: 85% stenosis treated with Drug Eluting Stent. 0% residual stenosis, JAMIL: 3 flow. Conclusions There is severe coronary artery disease with two vessel disease. three grafts patent, and one graft diseased. SVG to 1st OM was treated with Drug Eluting Stent. Indication for coronary angiogram: History of CABG, recurrent ventricular tachycardia despite of optimization of medicine requiring ICU admission and IV antiarrhythmic medicines along with chest pain declined to unstable angina. Recommendations 1-Return to inpatient for close monitoring and routine cath care2-Risk factor modification for secondary prevention3-Statin and aspirin 81 mg life-long, if tolerated4-Continue Brilinta 90 mg twice a day for at least one year. We will assess at the end of one year again to continue if further or not5-Continue optimal medical management, referred to EP special needs nanny for possible VT ablation6-Follow up with Dr. Ron in four weeks and your primary care in 10 days. Interventional RX Recommendation: PCI w/o planned CABG Diagnostic RX Recommendation: PCI w/o planned CABG Pressures Phase:Rest AO : 129 mmHg / 72 mmHg ( 95 mmHg ) @ 7:33:00 AM 120 mmHg / 69 mmHg ( 90 mmHg ) @ 7:38:00 AM 160 mmHg / -14 mmHg ( 44 mmHg ) @ 7:42:00 AM 130 mmHg / 71 mmHg ( 93 mmHg ) @ 7:45:00 AM 110 mmHg / 65 mmHg ( 84 mmHg ) @ 8:10:00 AM Clinical Evaluation EBL: 5mL-10mL Procedural Details Procedure Consent Obtained. Pre-Procedure Time Out. Identified patient by full name and date of as verbalized by the patient/guarantor. Does the consent match the physician's order: Yes. Accurate & Complete Informed Consent: Yes. Inpatient/Outpatient History & Physical on Chart: Yes. If H&P is completed, is and addenduem needed: N/A; If yes, is the addendum complete: N/A. Visualize and Verify Site with Patient/Guarantor: N/A. Relevant Radiology Images available: Yes. Pre-op teaching completed and patient verbalized understanding. The risks, benefits, and alternatives of sedation and/or procedure were discussed by physician. The patient agrees to continue. Procedure started. PERRLA. Strong, equal hand manager sign bilaterally. Lungs clear x 5 lobes. IV Site on Arrival: 18 gauge in the right forearm. IV Site on Arrival: 20 gauge in the left wrist. IV Fluids: 0.9% NaCl at KVO. 0 mL infused prior to cemetery laborer. Oxygen started at 2liters/min via nasal canula. bilateral groins was prepped with chloroprep then draped in the usual sterile fashion. Physician notified. Baseline sample Acquired. HR: 59 BPM. Equipment: 6F - Radial. Cardiac Cath Pack. ACIST Manifold Kit Model BT 2000. Heparinized Saline (2 units/mL), 1000 mL bag. Physician arrived. AP pads on pt. Physician scrubbed in. Immediate Pre-Procedure Time Out. Correct Patient: Yes; Correct Procedure: Yes; Correct Site: Yes; Correct Patient Position: Yes; Correct Supplies: Yes; Dried Flammable Prep: Yes; Blood Products Available: No;. Lidocaine 1% infiltrated to the right groin. Equipment: 6F - Femoral. Kit, Micropuncture. Arterial access obtained with micropuncture set. A 6 salvadorean JL4 catheter in over wire. Multiple views taken of left coronary artery. Catheter out. A 6 salvadorean JR4 catheter in over wire. Multiple views taken of right coronary artery. SVG's to RCA visualized and patent. SVG's to OM visualized and patent. SVG's to Diaganol visualized and patent. ADHIKARI to LAD visualized. 6 salvadorean AL I guide catheter was inserted over the wire. Inventory is [employer] XT .014 190cm Str. Guidewire. Guide catheter out. 6 salvadorean H-Stick guide catheter was inserted over the wire. 6 salvadorean RCB guide catheter was inserted over the wire. 6 salvadorean LCB guide catheter was inserted over the wire. Side port of sheath flushed with Normal Saline flush at KVO to maintain patency. ACT drawn. Results 203 seconds. Therapeutic limits - pre-heparin administration 90-150 seconds and monitoring heparin during a vascular procedure >250 seconds. [place]ona guidewire was advanced through the guide catheter to lesion in the diaganol. Patient's family unavailable. Inflation Number : 1 Trung Barker RYAN 2.5X15 MADELAINE -Lot Number# [id number] exp 10-01-2021 was prepped and advanced across the 1st Diag. The stent was deployed at 12 SHIVA for 0:20 seconds. Stent balloon out over wire. Results checked. Wire out. A Suture was successful obtaining hemostatsis at the Right Femoral artery insertion site. Sheath(s) sutured into position with 2-0 silk and sterile 4x4's and Op-site applied over the site. No oozing or signs and symptoms of hematoma noted. Arterial sheath flushed and connected to tranducer and pressure bag with heparinized saline. Post Procedure: Pulses reassessed and unchanged. PERRLA. Strong, equal hand manager sign bilaterally. No VTE prophylaxis required. Fluoro: 15:07. Contrast type used: Omnipaque 300 mgI/mL, 500 mL bottle. [id number]. Medication's Wasted: Lidocaine 1% = 5 mL. Medication's Wasted: Nitro = 49.8 mg. Medication's Wasted: Heparin = 4000 units. Total IV fluids: 250 mL. Complications: none. Estimated blood loss: 5mL-10mL. Procedure completed. Patient transferred by bed to ICU. PCI Indication: New Onset Angina. [facility] Clinical Fraility Score: 3: Managing Well. 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 Chest Pain Symptom Assessment: Atypical Angina. Cardiovascular Instability: Yes, if yes, Ventricular Arrhythmias. Post-op diagnosis:Post PCI SVG to Diag. Vital chart was stopped. Site: Right Femoral artery Sheath Size: 6 Fr Hemostasis Method: Suture Hemostasis Success: Successful Procedure Medications Start: 1:11 PM Stop: 1:11 PM Medication: Versed Amount: 2 mg Route: I.V. Start: 1:11 PM Stop: 1:11 PM Medication: Fentanyl Amount: 50 mcg Route: I.V. Start: 1:12 PM Stop: 1:12 PM Medication: Benadryl Amount: 50 mg Route: I.V. Start: 1:44 PM Stop: 1:44 PM Medication: Versed Amount: 1 mg Route: I.V. Start: 1:45 PM Stop: 1:45 PM Medication: Fentanyl Amount: 50 mcg Route: I.V. Start: 1:47 PM Stop: 1:47 PM Medication: Heparin Amount: 8000 units Route: I.V. Start: 2:08 PM Stop: 2:08 PM Medication: Heparin Amount: 2000 units Route: I.V. Start: 2:10 PM Stop: 2:10 PM Medication: Versed Amount: 1 mg Route: I.V. Start: 2:18 PM Stop: 2:18 PM Medication: Nitrogylcerin Amount: 200 mcg Route: I.C. Start: 2:19 PM Stop: 2:19 PM Medication: Versed Amount: 1 mg Route: I.V. I, the attending physician, have reviewed and verified all procedure medications. Yes, all medications given per verbal order History/Risk Factors Hypertension: No Dyslipidemia: No Peripheral Arterial Disease (PAD): No Myocardial Infarction (ID): No Obesity: No Renal Disease: No Prior Interventions PCI: No CABG: No Valve Surgery: No Report Signatures Finalized by:Anton Ron MD on 12/17/2019 5:37:23 PM
[2019-12-02] MEDS: sodium chloride 0.9% 1,000 ML 50 ML IV (13:05)
--- NOTE | 2019-12-02 13:16 | PC.NURSE ---
Patient to lab rep at 1306
[2019-12-02 14:48] LABS: Amphetamines Screen Urine Negative (Negative); Barbiturates Screen Urine Negative (Negative); Benzodiazepines Screen Urine Negative (Negative); Cocaine Screen Urine Negative (Negative); Opiate Screen Urine Negative (Negative); PCP Screen Urine Negative (Negative); THC Screen Urine Negative (Negative)
[2019-12-02 14:59] LABS: Add Urine Microscopic? YES; Bilirubin Urine Neg (NEGATIVE); Blood Urine Neg (Negative); Glucose Urine UA 4+ (Normal); Ketones Urine Negative (Negative); Leukocyte Esterase Urine Negative (Negative); Nitrate Urine Negative (Negative); Protein Urine Trace (Negative); Specific Gravity, Urine 1.015 (1.005-1.030); Urine Appearance Clear (CLEAR); Urine Color Yellow (Yellow); Urobilinogen Urine Norm (Negative); pH Urine 5 (5-7)
[2019-12-02 15:02] LABS: Add Urine Culture? No; Bacteria Urine 1+; Mucus Urine TRACE; RBC Urine 0-4 /hpf (0-2); Squamous Epithelial Cell Urine 0-4 (0-5); WBC Urine 0-4 /hpf (0-5)
[2019-12-02 17:09] LABS: Glucose Point of Care 133 mg/dL (70-110)
[2019-12-02] MEDS: fentaNYL 50 mcg/mL INJ 2mL IVP (17:55)
[2019-12-02 20:49] LABS: Glucose Point of Care 207 mg/dL (70-110)
[2019-12-03] VITALS (40 sets, daily range): BP systolic 98–151; BP diastolic 55–89; PULSE 54–88; RESP 6–20; TEMP 36.4–37.1; O2SAT 93–99
[2019-12-03] MEDS: temazepam 15 mg Capsule PO ×2 (00:49→22:48)
[2019-12-03] MEDS: sotalol 80 mg Tablet 40 MG PO (02:36)
--- NOTE | 2019-12-03 02:41 | PC.NURSE ---
Pt had been running sinus rhythm, started to have frequent PVC's starting around 0206. Pt asleep in bed and asymptomatic. Administered 40mg po sotalol per verbal orders from Dr. Ron. Will continue to monitor status.
[2019-12-03 04:25] LABS: Basophils % 0.4 %; Eosinophils # 0.2 10^3/uL (0.0-0.8); Eosinophils % 2.7 %; Hematocrit 48.9 % (42.0-52.0); Hemoglobin 16.1 g/dL (11.7-16.6); Lymphocytes # 1.2 10^3/uL (0.8-4.8); Lymphocytes % 17.1 %; Mean Corpuscular HGB Conc 32.9 g/dL (30.0-36.0); Mean Corpuscular Hemoglobin 29.8 pg (28.0-34.0); Mean Corpuscular Volume 90.6 fL (80-94); Mean Platelet Volume 11.3 fL (7.4-10.4); Monocytes # 1.2 10^3/uL (0.2-0.9); Monocytes % 17.4 %; Neutrophils # 4.4 10^3/uL (1.8-7.7); Neutrophils % 61.6 %; Nucleated Red Blood Cells % 0 %; Platelet Count 119 10^3/cmm (130-400); Red Cell Distribution Width 13.5 % (12.1-15.1); White Blood Count 7.1 10^3/uL (4.0-10.0)
[2019-12-03 04:40] LABS: Anion Gap 18.9 (5-19); Blood Urea Nitrogen 11 mg/dL (6-20); Calcium 9.1 mg/dL (8.5-10.5); Carbon Dioxide 21 mmol/L (22-29); Chloride 99 mmol/L (98-107); Glomerular Filtration Rate 116.7 mL/min (90-130); Glucose 222 mg/dL (65-115); Osmolality Calculated 283 mOsm/kg (285-295); Potassium 3.9 mmol/L (3.5-5.1); Sodium 135 mmol/L (136-145)
[2019-12-03 04:41] LABS: Magnesium 1.7 mg/dL (1.7-2.3); Phosphorus 4.1 mg/dL (2.5-4.5)
[2019-12-03 06:39] LABS: Glucose Point of Care 194 mg/dL (70-110)
[2019-12-03] MEDS: lisinopril 10 mg Tablet PO (08:30)
[2019-12-03] MEDS: sotalol 80 mg Tablet 120 MG PO ×2 (08:30→20:56)
[2019-12-03] MEDS: aspirin 325 mg Tablet PO (08:30)
[2019-12-03] MEDS: atorvastatin 40 mg Tablet 80 MG PO (08:30)
[2019-12-03] MEDS: clopidogrel 75 mg Tablet PO (08:30)
[2019-12-03] MEDS: fenofibrate 145 mg Tablet PO (08:30)
[2019-12-03] MEDS: ranolazine (12HR) 500 mg Tablet 250 MG PO ×2 (08:34→17:14)
--- NOTE | 2019-12-03 08:49 | PC.NURSE ---
V Tach 0815 patient had 6 beat run of V-Tach. Nurse assessed patient, states he felt it, feels tired and diaphoretic. Notified Dr. Ron, orders received to give Sotalol 120mg. Orders placed. 822 7 beat run of V-Tach, patient again feels sleepy and diaphoretic. Again notified Dr. Ron. Orders to proceed with the Sotalol 120mg PO. Administered the ordered Sotalol 120mg and placed a cold washcloth on forehead. Patient states he is starting to feel better.
--- NOTE | 2019-12-03 09:35 | ECG_ITS ---
Measurements Intervals [place] Rate: 67 P: 54 TN: 221 QRS: -77 QRSD: 100 T: 81 QT: 410 QTc: 435 SINUS RHYTHM WITH FIRST DEGREE AV BLOCK PATTERN CONSISTENT WITH PULMONARY DISEASE INFERIOR MYOCARDIAL INFARCTION [40+ ms Q WAVE AND/OR ST/T ABNORMALITY IN II/aVF], PROBABLY OLD Compared to ECG 12/02/2019 01:07:10 First degree AV block now present Ventricular premature complex(es) no longer present Incomplete right bundle-branch block no longer present Myocardial infarct finding still present Electronically Signed On 12-03-2019 22:25:33 TAR POT WORKER by Anton Ron M.D. [email or web address]
[2019-12-03] MEDS: magnesium sulfate premix 2 GM/50 ML PIGGYBACK IV (09:47)
[2019-12-03 11:10] LABS: Glucose Point of Care 245 mg/dL (70-110)
[2019-12-03 11:51] LABS: Alanine Aminotransferase 26 U/L (0-41); Albumin Level 4.1 g/dL (3.5-5.2); Alkaline Phosphatase 85 IU/L (40-130); Anion Gap 16.4 (5-19); Aspartate Amino Transferase 23 U/L (0-40); Blood Urea Nitrogen 14 mg/dL (6-20); Calcium 9.5 mg/dL (8.5-10.5); Carbon Dioxide 23 mmol/L (22-29); Chloride 99 mmol/L (98-107); Globulin 2.4 g/dL (1.3-4.6); Glomerular Filtration Rate 87.3 mL/min (90-130); Glucose 271 mg/dL (65-115); Potassium 4.4 mmol/L (3.5-5.1); Sodium 134 mmol/L (136-145); Total Bilirubin 0.7 mg/dL (0.15-1.2); Total Protein 6.5 g/dL (6.6-8.7)
--- NOTE | 2019-12-03 14:09 | PC.CHAP ---
Pastoral Care Encounter/Spiritual Assessment Type of Contact [] Declined academic advisor visit [] Patient/Family/Request visit [] Outpatient visit [] Follow-up visit [] Physician referral [] Code/Alert [x] Routine visit [] Staff referral [] Actively dying [] Patient sleeping [] Family support [] [] Out of room [] Palliative care [] [] Receiving care in room [] Pre-surgical visit [] Trauma [] Long length of stay [x] ICU visit [] Other: Relational/Emotional Strength [] Patient feels connected with others/family/visitors/staff [] Distress [] Loneliness/isolation [] Abandonment Spirituality of Patient [x] Person of Lois [x] Attends Yarsanism of their Lois [x] Believes in Prayer [] Reads Bible or Yazidism materials [] There are Spiritual issues to be addressed 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 Interventions x[] Prayer [] Active listening [] Non-anxious presence [] Spiritual/emotional support [] Crisis/trauma care [] Spiritual counseling [] Bereavement support [] Provided bereavement packet [] Provided Bible/devotional materials [] Provided toy/stuffed animal, coloring book to patient or family member [] Provided Communion [] Anointing/[place] [] Salvation [x] Completed spiritual assessment [] Other: Impact on Illness or Injury [] Angry [] Fearful [] Anxious [] Often cries [] Exhaustion [] Unable to work [] Unable to attend holiness [] Unable to walk/stand [] Unable to read [] Unable to drive [] Unable to eat/drink [] Unable to sleep [] Unable to be with family [] Patient intubated [] Other: Summary Patient resting well. Time spent with patient 10min
--- NOTE | 2019-12-03 15:24 | PM.PN ---
Subjective Subjective: Interval history: In last 24 hours patient went to [facility] for which stent placement. Overnight VPCs with earlier this morning. On evaluation this morning patient is already received sotalol 120 mg orally and states he continues to be dizzy at the moment but denies of having any nausea headache, chest pain syncope or presyncope. Patient has been walking around in his room without having any problems. Medications: Medication Review Details: Aspirin 325 mg once daily Atorvastatin 80 mg once daily Plavix 75 mg once daily TriCor 145 mg once daily Lisinopril 10 mg once daily Metformin 750 twice daily Ranitidine 150 mg twice daily Ranexa 250 mg twice daily Sotalol 80 mg twice daily Verapamil 120 mg once daily Ambien 10 mg once daily Vitals/I&O/Wt Last Vital Signs Temp 98.8 F 12/03/19 10:52 Pulse 67 12/03/19 14:00 Resp 18 12/03/19 14:00 BP 136/76 12/03/19 14:00 Pulse Ox 98 12/03/19 14:00 12/03/19 12/03/19 12/03/19 06:59 14:59 22:59 Intake Total 480 / 1450.933 480 / 480 Output Total 875 / 2055 800 / 800 Balance -395 / -604.067 -320 / -320 Weight last 48 hrs Weight 107.955 kg Physical Exam Narrative: EXAM NARRATIVE: General: No acute distress, AO x3 HEENT: PERRLA, pupils bilaterally equal and reactive Chest: Normal vesicular breath sounds, no added sounds, equal good air entry bilaterally, healthy ICD pocket noticed in left upper chest. CVS: S1-S2 regular, no murmurs, no tachycardia, no gallops, no rubs Abdomen: Soft, nontender, no organomegaly, bowel sounds present Neuro: No focal deficits, no facial deformity, AO x3, power 5/5 in all limbs. Ext: Groin site healthy without any erythema or tenderness. Data : 12/03/19 03:41 12/03/19 11:00 A&P Assessment and plan (1) Ventricular tachycardia: Status: Acute Code(s): I47.2 - Ventricular tachycardia (2) Ischemic cardiomyopathy: Status: Acute Code(s): I25.5 - Ischemic cardiomyopathy (3) ICD (implantable cardioverter-defibrillator) in place: Status: Acute Code(s): Z95.810 - Presence of automatic (implantable) cardiac defibrillator (4) Chest discomfort: Status: Acute Code(s): R07.89 - Other chest pain (5) Hyponatremia: Will recheck sodium with morning labs Status: Acute Code(s): E87.1 - Hypo-osmolality and hyponatremia (6) Hypertriglyceridemia: Status: Acute Code(s): E78.1 - Pure hyperglyceridemia (7) HTN (hypertension): Status: Acute Code(s): I10 - Essential (primary) hypertension (8) Type 2 diabetes mellitus: Low-dose sliding scale Status: Acute Code(s): E11.9 - Type 2 diabetes mellitus without complications Additional A&P Information Multiple episodes of nonsustained V. tach: V. tach terminated by overdrive pacing from ICD. Most of his V. tach have been monomorphic. Patient underwent cardiac catheterization and stent placement yesterday but nonsustained VT. Most likely scar will be because of his prior SC. Will replace magnesium and potassium today morning keeping magnesium around 2 and potassium around 4. His sotalol has already been increased to 120 mg twice daily. Continue with home dose of verapamil. Urine screen for drugs and alcohol levels appreciated. We will rule out any viral causes by doing a respiratory viral panel and enteric panel even though patient denies of having any symptoms or recent travels but does state his granddaughters have been having flu like symptoms. If patient continues to have recurrent nonsustained V. tach would most likely need EP ablation. We have discussed with Dr. Ron. Will follow recommendation. Continue with aspirin, atorvastatin, fenofibrate, Plavix, Ranexa. Lipid panel reviewed. Type 2 diabetes mellitus: HbA1c 8.8. Continue with moderate insulin sliding scale and Accu-Cheks before meals and at bedtime. HTN: C/w home dose of Lisinopril. BP well controlled. Full code Lovenox for DVT prophylaxis PUD prophylaxis not required at present. Attestations Medical Necessity Statement*: Needs continued hospitalisation due to repeated NSVT Coding Level of Care Code Acute Brim Molder for g Fwd Diagnoses Ventricular tachycardia I47.2 Ischemic cardiomyopathy I25.5 ICD (implantable cardioverter-defibrillator) in place Z95.810 Chest discomfort R07.89 Hyponatremia E87.1 Hypertriglyceridemia E78.1 HTN (hypertension) I10 Type 2 diabetes mellitus E11.9
[2019-12-03 17:06] LABS: Glucose Point of Care 202 mg/dL (70-110)
[2019-12-03] MEDS: nystatin cream 30 gm 1 APPLIC TOPICAL (17:13)
[2019-12-03] MEDS: magnesium oxide 400 mg tablet PO (17:14)
--- NOTE | 2019-12-03 19:11 | PM.PN ---
Subjective Subjective: Interval history: Patient has 7 beats run of nonsustained V. tach This morning. He status post PCI to SVG to Diagonal branch. Medications: Medication Review Details: Aspirin 325 mg once daily Atorvastatin 80 mg once daily Plavix 75 mg once daily TriCor 145 mg once daily Lisinopril 10 mg once daily Metformin 750 twice daily Ranitidine 150 mg twice daily Ranexa 250 mg twice daily Sotalol 80 mg twice daily Verapamil 120 mg once daily Ambien 10 mg once daily Vitals/I&O/Wt Last Vital Signs Temp 98.4 F 12/03/19 18:00 Pulse 60 12/03/19 18:00 Resp 12 12/03/19 18:00 BP 137/71 12/03/19 18:00 Pulse Ox 98 12/03/19 18:00 12/03/19 12/03/19 12/03/19 06:59 14:59 22:59 Intake Total 480 / 1450.933 480 / 480 240 / 720 Output Total 875 / 2055 800 / 800 Balance -395 / -604.067 -320 / -320 240 / -80 Physical Exam Narrative: EXAM NARRATIVE: GENERAL: Patient is alert, awake and oriented x3. NECK: No jugular vein distension. HEENT: No cyanosis. No icterus. No pallor. HEART: Regular S1 and S2. No murmur, rub or gallop. LUNGS: Clear to auscultate bilaterally. ABDOMEN: Soft, nontender and nondistended. Positive bowel sounds. No guarding, rebound or tenderness. CENTRAL NERVOUS SYSTEM: Grossly nonfocal. EXTREMITIES: Lower extremities without edema bilaterally. Pulses palpable in the lower extremities, both dorsalis pedis and posterior tibial. Data : 12/03/19 03:41 12/03/19 11:00 A&P Assessment and plan (1) Ischemic cardiomyopathy: Status post stent to saphenous venous graft to diagonal branch. Denies any more chest pain. Continue current regimen. Status: Acute Code(s): I25.5 - Ischemic cardiomyopathy (2) Ventricular tachycardia: Patient is off Lidocaine drip. I will increase sotalol to 120 mg twice a day. We will monitor him for 1 more day if he runs into more VTs we will refer him for VT ablation Status: Acute Code(s): I47.2 - Ventricular tachycardia (3) HTN (hypertension): Well-controlled. Continue medicine Status: Acute Code(s): I10 - Essential (primary) hypertension (4) Hypertriglyceridemia: Difficult to control despite of on statin fenofibrate's and fish oil. Patient require good glycemic control in order to control the triglycerides. He is working hard on his lifestyle modification. Status: Acute Code(s): E78.1 - Pure hyperglyceridemia (5) Type 2 diabetes mellitus: As per medicine Status: Acute Code(s): E11.9 - Type 2 diabetes mellitus without complications (6) Chest discomfort: Status post PCI to saphenous venous graft to diagonal branch. Denies any more chest pain. Status: Acute Code(s): R07.89 - Other chest pain (7) Hyponatremia: As per medicine it will be addressed Status: Acute Code(s): E87.1 - Hypo-osmolality and hyponatremia Attestations Medical Necessity Statement*: Patient Requires continuation of hospitalization for above defined care Coding Level of Care Code Established Pt Acute [facility] for Chg Fwd Patient Type Established History Expanded Problem Focused Medical Decision Making Moderate Complexity Diagnoses Ischemic cardiomyopathy I25.5 Ventricular tachycardia I47.2 HTN (hypertension) I10 Hypertriglyceridemia E78.1 Type 2 diabetes mellitus E11.9 Chest discomfort R07.89 Hyponatremia E87.1
--- NOTE | 2019-12-03 19:55 | PC.NURSE ---
education provided per request. sekou mejia.
[2019-12-03] MEDS: enoxaparin 40 mg/0.4 mL Syringe SUBCUT (20:07)
[2019-12-03] MEDS: acetaminophen 500 mg Tablet 650 MG PO (20:11)
[2019-12-03 21:08] LABS: Glucose Point of Care 285 mg/dL (70-110)
[2019-12-04] VITALS (20 sets, daily range): BP systolic 109–166; BP diastolic 53–96; PULSE 50–70; RESP 0–23; TEMP 36.7; O2SAT 94–98
[2019-12-04 00:38] LABS: Glucose Point of Care 222 mg/dL (70-110)
[2019-12-04 05:11] LABS: Magnesium 1.8 mg/dL (1.7-2.3); Phosphorus 4.4 mg/dL (2.5-4.5)
[2019-12-04] MEDS: nystatin cream 30 gm 1 APPLIC TOPICAL (06:10)
[2019-12-04 07:18] LABS: Glucose Point of Care 220 mg/dL (70-110)
[2019-12-04] MEDS: sotalol 80 mg Tablet 120 MG PO (08:56)
[2019-12-04] MEDS: aspirin 325 mg Tablet PO (08:57)
[2019-12-04] MEDS: clopidogrel 75 mg Tablet PO (08:57)
[2019-12-04] MEDS: lisinopril 10 mg Tablet PO (08:57)
[2019-12-04] MEDS: atorvastatin 40 mg Tablet 80 MG PO (08:57)
[2019-12-04] MEDS: fenofibrate 145 mg Tablet PO (08:57)
[2019-12-04] MEDS: magnesium oxide 400 mg tablet PO (08:57)
[2019-12-04] MEDS: ranolazine (12HR) 500 mg Tablet 250 MG PO (08:58)
--- NOTE | 2019-12-04 11:00 | P.PN_ITS ---
Subjective Subjective: Interval history: Overall feeling much better. No more episodes of ventricular tachycardia. Medications: Reviewed: Yes Medication Review Details: Aspirin 325 mg once daily Atorvastatin 80 mg once daily Plavix 75 mg once daily TriCor 145 mg once daily Lisinopril 10 mg once daily Metformin 750 twice daily Ranitidine 150 mg twice daily Ranexa 250 mg twice daily Sotalol 80 mg twice daily Verapamil 120 mg once daily Ambien 10 mg once daily Vitals/I&O/Wt Last Vital Signs Temp 98.1 F 12/04/19 06:00 Pulse 67 12/04/19 08:00 Resp 23 H 12/04/19 08:00 BP 113/53 12/04/19 08:00 Pulse Ox 98 12/04/19 04:00 12/03/19 12/04/19 12/04/19 22:59 06:59 14:59 Intake Total 1040 / 1520 480 / 2000 240 / 240 Balance 1040 / 720 480 / 1200 240 / 240 Physical Exam Narrative: EXAM NARRATIVE: GENERAL: Patient is alert, awake and oriented x3. NECK: No jugular vein distension. HEENT: No cyanosis. No icterus. No pallor. HEART: Regular S1 and S2. No murmur, rub or gallop. LUNGS: Clear to auscultate bilaterally. ABDOMEN: Soft, nontender and nondistended. Positive bowel sounds. No guarding, rebound or tenderness. CENTRAL NERVOUS SYSTEM: Grossly nonfocal. EXTREMITIES: Lower extremities without edema bilaterally. Pulses palpable in the lower extremities, both dorsalis pedis and posterior tibial. HENMT: THROAT: no uvular edema Data : 12/03/19 03:41 12/03/19 11:00 A&P Assessment and plan (1) Ischemic cardiomyopathy: Stable no more chest pain. Status post PCI to saphenous venous graft to diagonal branch. Continue aspirin and statin beta-megan and Plavix. Status: Acute Code(s): I25.5 - Ischemic cardiomyopathy (2) Ventricular tachycardia: After increasing sotalol to 120 mg patient does not have any more episodes of VT. I have spoken to Dr. Bergman EP senior microsoft consultant at [place] [facility] regarding EP study and possible VT ablation. Dr. Bergman's office will follow up on patient for consultation date. We will fax all the information to Dr. Samaniego office today. Patient will be discharged home for now. He is going to follow-up with me in 1 week. He is going to follow-up with Dr. Bergman as scheduled Status: Acute Code(s): I47.2 - Ventricular tachycardia (3) HTN (hypertension): Well-controlled. Continue medicine Status: Acute Code(s): I10 - Essential (primary) hypertension (4) Hypertriglyceridemia: Difficult to control despite of on statin fenofibrate's and fish oil. Redd jesus require good glycemic control in order to control the triglycerides. He is working hard on his lifestyle modification. Status: Acute Code(s): E78.1 - Pure hyperglyceridemia (5) Type 2 diabetes mellitus: As per medicine Status: Acute Code(s): E11.9 - Type 2 diabetes mellitus without complications (6) Chest discomfort: Denies any more chest pain. Status post PCI to saphenous venous graft to diagonal. Status: Acute Code(s): R07.89 - Other chest pain (7) Hyponatremia: Improving. Status: Acute Code(s): E87.1 - Hypo-osmolality and hyponatremia Attestations Medical Necessity Statement*: Patient can be discharged home today. Follow-up with cardiology in 1 week Coding Level of Care Code Acute Bakery Team Member for Chg Fwd Diagnoses Ischemic cardiomyopathy I25.5 Ventricular tachycardia I47.2 HTN (hypertension) I10 Hypertriglyceridemia E78.1 Type 2 diabetes mellitus E11.9 Chest discomfort R07.89 Hyponatremia E87.1
[2019-12-04 11:07] LABS: Alanine Aminotransferase 23 U/L (0-41); Albumin Level 4.2 g/dL (3.5-5.2); Alkaline Phosphatase 72 IU/L (40-130); Anion Gap 16.1 (5-19); Aspartate Amino Transferase 18 U/L (0-40); Blood Urea Nitrogen 16 mg/dL (6-20); Carbon Dioxide 24 mmol/L (22-29); Chloride 99 mmol/L (98-107); Globulin 2.9 g/dL (1.3-4.6); Glomerular Filtration Rate 87.3 mL/min (90-130); Glucose 294 mg/dL (65-115); Potassium 4.1 mmol/L (3.5-5.1); Sodium 135 mmol/L (136-145); Total Bilirubin 0.7 mg/dL (0.15-1.2); Total Protein 7.1 g/dL (6.6-8.7)
[2019-12-04 11:13] LABS: Glucose Point of Care 285 mg/dL (70-110)
--- NOTE | 2019-12-04 12:35 | P.DS_ITS ---
Discharge Providers Date of Admission: 12/02/19 22:45 Date of Discharge: December 04, 2019 Attending Provider at Admission: Saulo Lau MD Attending Provider at Discharge: Gavin Gannon MD Primary Care Provider: Temo Bajwa MD Diagnoses at Discharge Discharge Diagnosis (1) Ischemic cardiomyopathy: Status: Acute Problem details: Status post stent, saphenous vein graft to diagonal branch. Continue statin, aspirin, Plavix (2) Ventricular tachycardia: Status: Acute Problem details: Sotalol increased. Appointment with electrophysiology for possible ablation (3) HTN (hypertension): Status: Acute Problem details: Controlled (4) Hypertriglyceridemia: Status: Acute Problem details: Continue home medicines (5) Type 2 diabetes mellitus: Status: Acute Problem details: Resume metformin on Wednesday (6) Chest discomfort: Status: Acute Problem details: See above (7) Hyponatremia: Status: Acute Problem details: Resolved Reason for Visit Reason for Visit: Reason For Visit: chest pressure, neck pain Hospital Course Hospital Course: Cy is a 54-year-old white male who presented to the hospital with chest discomfort. Ventricular tachycardia, nonsustained was also noted. Secondary to this an angiogram was performed, and a drug-eluting stent was placed. See catheterization report for details. In response to nonsustained ventricular tachycardia magnesium was increased, and sotalol incr eased. By the morning of December 04 he was feeling well. No further episodes of nonsustained ventricular tachycardia was noted. 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 He will take an increased dose of magnesium, increased dose of sotalol. Angiogram site right groin without concerns. Physical Exam Narrative: EXAM NARRATIVE: General exam no apparent distress Cardiovascular regular rate and rhythm without murmur Lungs clear Abdomen is soft with positive bowel sounds Right groin without hematoma Extremities no cyanosis clubbing or edema, dorsalis pedis foot intact. 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 Routin e Exams 12/02/19 12:56 Taken Respiratory Viral Panel PCR Routine Lab 12/03/19 10:00 Received Tick Panel Routin e Lab 12/03/19 11:00 Received Labs from last 24 hours 12/04/19 12/04/19 12/04/19 11:10 10:30 07:10 Sodium 135 L Potassium 4.1 Chloride 99 Carbon Dioxide 24 Anion Gap 16.1 BUN 16 Creatinine 0.9 GFR Calculation 87.3 L Glucose 294 H POC Glucose 285 220 Calcium 10.0 Phosphorus Magnesium Total Bilirubin 0.7 AST 18 ALT 23 Alkaline Phosphata se 72 Total Protein 7.1 Albumin 4.2 Globulin 2.9 12/04/19 12/04/19 12/03/19 04:16 00:35 21:03 Sodium Potassium Chloride Carbon Dioxide Anion Gap BUN Creatinine GFR Calculation Glucose POC Glucose 222 285 Calcium Phosphorus 4.4 Magnesium 1.8 Total Bilirubin AST ALT Alkaline Phosphata se Total Protein Albumin Globulin 12/03/19 17:02 Sodium Potassium Chloride Carbon Dioxide Anion Gap BUN Creatinine GFR Calculation Glucose POC Glucose 202 Calcium Phosphorus Magnesium Total Bilirubin AST ALT Alkaline Phosphata se Total Protein Albumin Globulin Vitals: Last Vital Signs Temp 98.1 F 12/04/19 06:00 Pulse 70 12/04/19 10:15 Resp 14 12/04/19 10:15 BP 155/88 12/04/19 10:15 Pulse Ox 98 12/04/19 10:15 Discharge Plan Discharge Patient Disposition: Home, Self-Care Condition: Stable Prescriptions: New magnesium oxide 400 mg (241.3 mg magnesium) Tablet 400 mg PO BID Qty: 60 RF: 0 sotalol 80 mg Tablet 120 mg PO BID@0900,2100 Qty: 90 RF: 0 Continued aspirin 325 mg tablet 325 mg PO QDAY RF: 0 atorvastatin 80 mg tablet 80 mg PO QDAY RF: 0 clopidogrel [Plavix] 75 mg tablet 75 mg PO QDAY RF: 0 lisinopril 10 mg tablet 10 mg PO QDAY RF: 0 nitroglycerin [Nitrostat] 0.4 mg tablet, sublingual 0.4 mg SUBLINGUAL DIRECTED RF: 0 ranitidine HCl [Acid Control (ranitidine)] 150 mg tablet 150 mg PO BID RF: 0 fenofibrate nanocrystallized [Tricor] 145 mg tablet 145 mg PO QDAY RF: 0 verapamil 120 mg capsule,ext rel. pellets 24 hr 120 mg PO QAM RF: 0 zolpidem 10 mg tablet 10 mg PO ONCE RF: 0 metformin 500 mg tablet 750 mg PO BID RF: 0 ranolazine [Ranexa] 500 mg tablet extended release 12 hr 250 mg PO BID RF: 0 Discontinued sotalol 80 mg tablet 80 mg PO BID RF: 0 magnesium 200 mg Tablet 200 mg PO DAILY RF: 0 Discharge Orders: Discharge Order (Routine); Ordered 12/04/19 Ordered By: Gavin Gannon Referrals: Anton Ron MD [Physician] - 7-10 days Temo Bajwa MD [Primary Care Provider] - 4-7 days Discharge Diet: Cardiac and Diabetic Discharge Activity: Increase activity as tolerated Activity Restrictions/Additional Instructions: Cardiology will be setting you up with an appointment with electrophysiology physician. 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
[2019-12-05 10:21] LABS: Lyme AB Screen <0.90 index
[2019-12-06 03:21] LABS: Adenovirus Not Detected (Not Detected); Human Metapneumovirus Not Detected (Not Detected); Human Parainflu Virus 1 Not Detected (Not Detected); Human Parainflu Virus 2 Not Detected (Not Detected); Human Parainflu Virus 3 Not Detected (Not Detected); Human Rsv A Not Detected (Not Detected); Influenza A Not Detected (Not Detected); Influenza B Not Detected (Not Detected); Rhinovirus/Enterovirus Not Detected (Not Detected)
[2019-12-06 15:51] LABS: E. Chaffeensis AB IGG <1:64; E. Chaffeensis AB IGM <1:20
[2019-12-06 21:11] LABS: RMSF IGG NOT DETECTED; RMSF IGM NOT DETECTED
== END 2019-12-04 14:00 | disposition home or self-care (01) | DRG 247 ==
LOC: ER 18:31 → ICU 12-02 07:03 → CSU 12-02 07:03
PROVIDERS: Family Medicine; Internal Medicine Cardiovascular Disease; Admitting Provider Student in an Organized Health Care Education/Training Program; Emergency Provider Emergency Medicine; Family Provider Family Medicine; PCP Family Medicine; Visit Provider Internal Medicine
PROC: 027034Z Dilation of Coronary Artery, One Artery with Drug-eluting Intraluminal Device, Percutaneous Approach (ICD-10-PCS; principal; 2019-12-02 13:00)
PROC: 027034Z Dilation of Coronary Artery, One Artery with Drug-eluting Intraluminal Device, Percutaneous Approach (ICD-10-PCS; 2019-12-02 13:00)
DX: I47.2 Ventricular tachycardia (principal); I25.810 Atherosclerosis of coronary artery bypass graft(s) without angina pectoris; E87.1 Hypo-osmolality and hyponatremia; E11.9 Type 2 diabetes mellitus without complications; E78.1 Pure hyperglyceridemia; E78.5 Hyperlipidemia, unspecified; K21.9 Gastro-esophageal reflux disease without esophagitis; I25.5 Ischemic cardiomyopathy; F32.9 Major depressive disorder, single episode, unspecified; I10 Essential (primary) hypertension; H81.20 Vestibular neuronitis, unspecified ear; R07.81 Pleurodynia; Z79.02 Long term (current) use of antithrombotics/antiplatelets; Z79.84 Long term (current) use of oral hypoglycemic drugs; Z95.810 Presence of automatic (implantable) cardiac defibrillator; Z86.74 Personal history of sudden cardiac arrest; Z95.1 Presence of aortocoronary bypass graft; Z87.891 Personal history of nicotine dependence
CPT/HCPCS: 12345; 36415; 36416; 71045; 71275; 80048; 80053; 80061; 80307; 81001; 82962; 83036; 83721; 83735; 84100; 84484; 85025; 85347; 85610; 85730; 86618; 86666; 86757; 87804; 93005; 93455; 94664; 96365; 96366; 96372; 96375; 99282; C1769; C1874; C1887; C1894; C9600; G0378; J1200; J1644; J1650; J1815; J2001; J2060; J2250; J2270; J2405; J3010; J3475; J3490; J7030; Q9967

== ENCOUNTER → 2019-12-12 10:32 | Outpatient (BNVA) | payer MEDICARE, SELFPAY | PROVIDERS: Family Provider Family Medicine; PCP Family Medicine; Visit Provider Nurse Practitioner Family | DX: I25.10 Atherosclerotic heart disease of native coronary artery without angina pectoris (principal); I47.2 Ventricular tachycardia; I25.810 Atherosclerosis of coronary artery bypass graft(s) without angina pectoris | CPT/HCPCS: 80048 ==

== ENCOUNTER → 2020-01-01 16:33 | Outpatient (BNVA) | payer MEDICARE, SELFPAY | PROVIDERS: Family Provider Family Medicine; PCP Family Medicine; Visit Provider Internal Medicine Cardiovascular Disease | DX: I47.2 Ventricular tachycardia (principal); I25.5 Ischemic cardiomyopathy | CPT/HCPCS: 85730 ==

== ENCOUNTER → 2020-07-22 15:49 | Outpatient (BNVA) | payer MEDICARE, SELFPAY | PROVIDERS: Family Provider Family Medicine; PCP Family Medicine; Visit Provider Internal Medicine Cardiovascular Disease | DX: I10 Essential (primary) hypertension (principal); I25.810 Atherosclerosis of coronary artery bypass graft(s) without angina pectoris; E11.9 Type 2 diabetes mellitus without complications; E78.5 Hyperlipidemia, unspecified; Z95.810 Presence of automatic (implantable) cardiac defibrillator; I25.5 Ischemic cardiomyopathy; I47.2 Ventricular tachycardia; E78.1 Pure hyperglyceridemia | CPT/HCPCS: 80048; 80061; 80076; 83036; 83721; 84443; 85025 ==

== ENCOUNTER → 2020-09-17 08:24 | Outpatient (BNVA) | payer MEDICARE, SELFPAY | PROVIDERS: Family Provider Family Medicine; PCP Family Medicine; Referring Provider Internal Medicine Cardiovascular Disease; Visit Provider Internal Medicine | DX: E11.319 Type 2 diabetes mellitus with unspecified diabetic retinopathy without macular edema (principal); E11.40 Type 2 diabetes mellitus with diabetic neuropathy, unspecified; E11.59 Type 2 diabetes mellitus with other circulatory complications; I25.10 Atherosclerotic heart disease of native coronary artery without angina pectoris; I10 Essential (primary) hypertension | CPT/HCPCS: 99204 ==

== ENCOUNTER → 2020-10-14 14:59 | Outpatient (BNVA) | payer MEDICARE, SELFPAY | PROVIDERS: PCP Family Medicine; Visit Provider Podiatrist Foot & Ankle Surgery | DX: S92.534B Nondisplaced fracture of distal phalanx of right lesser toe(s), initial encounter for open fracture (principal); X58.XXXA Exposure to other specified factors, initial encounter | CPT/HCPCS: 73630 ==

== ENCOUNTER → 2020-12-13 11:30 | Outpatient (BNVA) | payer MEDICARE, SELFPAY | PROVIDERS: PCP Family Medicine; Visit Provider Podiatrist Foot & Ankle Surgery | DX: S92.534D Nondisplaced fracture of distal phalanx of right lesser toe(s), subsequent encounter for fracture with routine healing (principal); X58.XXXD Exposure to other specified factors, subsequent encounter | CPT/HCPCS: 73630 ==

== ENCOUNTER 2020-12-27 10:37 | Outpatient (CLI) | payer MEDICARE, SELFPAY ==
[2020-12-27 11:13] LABS: Estmated Average Glucose 240
== END 2020-12-27 10:38 | disposition home or self-care (01) ==
PROVIDERS: PCP Family Medicine; Visit Provider Internal Medicine
DX: E11.319 Type 2 diabetes mellitus with unspecified diabetic retinopathy without macular edema (principal); E11.40 Type 2 diabetes mellitus with diabetic neuropathy, unspecified; E11.59 Type 2 diabetes mellitus with other circulatory complications; I25.10 Atherosclerotic heart disease of native coronary artery without angina pectoris; I10 Essential (primary) hypertension
CPT/HCPCS: 36415; 83036; 99214

== ENCOUNTER → 2021-08-04 09:02 | Outpatient (BNVA) | payer MEDICARE, SELFPAY | PROVIDERS: PCP Family Medicine; Visit Provider Internal Medicine | DX: E11.40 Type 2 diabetes mellitus with diabetic neuropathy, unspecified (principal); E11.59 Type 2 diabetes mellitus with other circulatory complications; E11.319 Type 2 diabetes mellitus with unspecified diabetic retinopathy without macular edema; I25.10 Atherosclerotic heart disease of native coronary artery without angina pectoris; I10 Essential (primary) hypertension | CPT/HCPCS: 99214 ==

== ENCOUNTER 2021-10-07 08:35 | Outpatient (CLI) | payer MEDICARE, SELFPAY ==
--- NOTE | 2021-10-07 08:45 | USCV_ITS ---
Cy Bajwa Age: 56 Gender: M : 1965 Exam Date: 10/07/2021 08:46 Ordering Phys: Anton Ron MD ([email or web address]) Technologist: SUGEY Exam Location: [facility] Indication: SHORTNESS OF BREATH BP: 139 / 85 HR: 76 Rhythm: Sinus Technical Quality: Adequate MEASUREMENTS (Male / Female) Normal Values 2D ECHO LV Diastolic Diameter PLAX 5.0 cm 4.2 - 5.9 / 3.9 - 5.3 cm LV Systolic Diameter PLAX 3.4 cm IVS Diastolic Thickness 1.4 cm 0.6 - 1.0 / 0.6 - 0.9 cm IVS Systolic Thickness 1.9 cm LVPW Diastolic Thickness 1.2 cm 0.6 - 1.0 / 0.6 - 0.9 cm LVPW Systolic Thickness 1.8 cm RV Chamber Size 3.6 cm LVOT Diameter 2.0 cm LV Ejection Fraction 2D Teich 58.7 % LV Ejection Fraction MOD 2C 51.7 % LV Ejection Fraction 2C AL 51.1 % LA Diameter 4.1 cm LA Width 3.6 cm LA Height 5.1 cm RA Width 3.0 cm RA Height 5.3 cm Aorta at Sinotubular Diameter 2.9 cm M-MODE Aortic Annulus Diameter 4.0 cm LA Ao Ratio MM 1.0 MV E Point Septal Separation 0.6 cm DOPPLER AV Peak Velocity 84.0 cm/s LVOT Peak Velocity 58.0 cm/s AV Area Cont Eq vti 2.3 cm squared AV Area Cont Eq pk 2.2 cm squared MV Area PHT 3.9 cm squared Mitral E to A Ratio 1.0 MV E' Velocity 38.5 cm/s Mitral E to MV E' Ratio 6.2 Mitral E to LV E' Lateral Ratio 5.9 Mitral E to LV E' Septal Ratio 6.7 TR Peak Velocity 218.7 cm/s TR Peak Gradient 19.1 mmHg TV Peak E Velocity 65.0 cm/s Right Atrial Pressure 8.0 mmHg Pulmonary Artery Systolic Pressu 27.1 mmHg PV Peak Velocity 118.0 cm/s RV Acceleration Time 0.1 s RV Ejection Time 0.3 s RV AcT/ET 0.5 FINDINGS Left Ventricle Normal left ventricular cavity size. Mild decreased left ventricular systolic function. Distal anterior and apical wall hypokinesis.left ventricular ejection fraction is estimated at 50 %. Grade II/IV diastolic dysfunction, moderately elevated filling pressures. Right Ventricle The right ventricle is normal in size and function. Catheter/pacemaker wire visualized in the right ventricle. Right Atrium The right atrium is normal in size. Catheter/pacemaker wire in the right atrial cavity. Left Atrium The left atrium is normal in size. Mitral Valve Mildly thickened mitral valve. No mitral valve stenosis. Trace mitral valve regurgitation. Aortic Valve Mild aortic valve calcification. No aortic valve stenosis. Trace aortic valve regurgitation. Tricuspid Valve Structurally normal tricuspid valve without significant stenosis or regurgitation. Pulmonary artery systolic pressure is normal. Pulmonic Valve Structurally normal pulmonic valve without significant stenosis. There is no pulmonic regurgitation. Pericardium Normal pericardium without effusion. Aorta Normal ascending aorta dimension. CONCLUSIONS 1-Normal left ventricular cavity size. Mild decreased left ventricular systolic function. Distal anterior and apical wall hypokinesis.left ventricular ejection fraction is estimated at 50 %. Grade II/IV diastolic dysfunction, moderately elevated filling pressures. 2-The right ventricle is normal in size and function. Catheter/pacemaker wire visualized in the right ventricle. 3-The right atrium is normal in size. Catheter/pacemaker wire in the right atrial cavity. 4-There is no pericardial effusion. 5-No significant valve abnormalities. 6-Pulmonary artery systolic pressure is within normal limits. 7-when compared to the prior echocardiogram there is slight worsening of left ventricle ejection fraction from 60% to 50% which is mildly reduced now. Wall motion abnormality in the distal and apical left ventricle is not new and was seen before. Anton Ron MD (Electronically Signed) Final Date: 07 October 2021 09:31 S
== END 2021-10-07 08:36 | disposition home or self-care (01) ==
LOC: RAD 08:39
PROVIDERS: PCP Family Medicine; Visit Provider Internal Medicine Cardiovascular Disease
DX: R06.02 Shortness of breath (principal); R07.9 Chest pain, unspecified; I25.810 Atherosclerosis of coronary artery bypass graft(s) without angina pectoris; I51.9 Heart disease, unspecified
CPT/HCPCS: 93306

== ENCOUNTER → 2021-10-27 08:50 | Outpatient (BNVA) | payer MEDICARE, SELFPAY | PROVIDERS: PCP Family Medicine; Visit Provider Internal Medicine Cardiovascular Disease | DX: E78.1 Pure hyperglyceridemia (principal) | CPT/HCPCS: 80061 ==

== ENCOUNTER 2021-11-12 09:37 | Emergency (ER) | payer MEDICARE, SELFPAY ==
[2021-11-12 10:14] VITALS: BP 111/72; PULSE 72; RESP 19; TEMP 36.7; O2SAT 97; BMI 29.9
--- NOTE | 2021-11-12 10:29 | ED_ITS ---
HPI - COVID General: Chief Complaint: COVID symptoms Stated Complaint: COVID postive Time Seen by Provider: 11/12/21 10:19 Triage information: No fever, cough or shortness of breath . No known COVID + exposure last 14 days History of Present Illness: HPI Narrative: Patient presents requesting MC infusion. Was seen at [facility] and tested positive on the 12th when his symptoms began. Patient says he has burning in chest when he takes deep breath. Does complain about muscle aches headache denies any shortness of breath. MD complaint: known COVID positive Prior covid testing: yes, results known Prior testing date: 11/05/21 COVID 19 common symptoms: positive body aches, headache(s), loss of sense of smell and/or taste and nasal congestion; negative non-productive cough, productive cough, dyspnea, nausea or vomiting COVID 19 other sytmptoms: negative chest pain Onset (ago): day(s) Severity: mild Pertinent comorbid conditions: diabetes, hypertension, heart disease and chronic kidney disease COVID Results: No Data to Display Review of Systems Const: Reports: body aches Eyes: Denies: change in vision or blurry vision ENMT: Reports: nasal congestion Card: Denies: chest pain or dyspnea on exertion Resp: Denies: dyspnea, productive cough or non-productive cough GI: Denies: abdominal pain, nausea or vomiting : Denies: difficulty urinating Musc: Denies: extremity pain Skin/Breast: Denies: rash Neuro: Reports: headache(s) Psych: Denies: anxiety or depression Endo: Reports: other (Blood sugar readings are little higher because he is on steroid presently b) Richar/Lymph: Denies: easy bruising PFS ED PFSH: Medical History (Updated 11/12/21 @ 10:28 by RICHARD Bauer) Coronary artery arteriosclerosis Depression HTN (hypertension) Controlled Hypertriglyceridemia Continue home medicines ICD (implantable cardioverter-defibrillator) in place Insomnia Ischemic cardiomyopathy Status post stent, saphenous vein graft to diagonal branch. Continue statin, aspirin, Plavix Type 2 diabetes mellitus Resume metformin on Wednesday Ventricular tachycardia Sotalol increased. Appointment with electrophysiology for possible ablation Vestibular neuronitis Surgical History H/O elbow surgery History of implantable cardiac defibrillator (ICD) Hx of heart artery stent PCI of SVG to diagonal 12/02/2019 S/P appendectomy S/P CABG (coronary artery bypass graft) S/P cardiac catheterization S/P implantation of automatic cardioverter/defibrillator (AICD) S/P shoulder surgery Status post knee surgery Family History Mother Hypertension Father Hypertension Social History Smoking and tobacco status: never smoked Second hand smoke exposure: No Smoking risk assessment/counseling performed?: Yes Alcohol intake: current Alcohol intake frequency: few times a month Alcohol type: beer Desire information about alcohol rehabilitation?: No Counseling given: Yes Desire information about substance/drug rehabilitation?: No Counseling given: Yes Adopted: No Caregiver/support person: No Lives independently: Yes Household members: none Housing: House Marital status: Number of children: 2 Number of grandchildren: 3 Highest education level completed: Some College, No Degree service: No Current occupational status: disabled History of recent travel: No Sexually active: Yes Current gender identity: Male Physical Exam Narrative: EXAM NARRATIVE: Patient is in no acute distress. Visit with patient at length because he is a friend of mine. Patient is requesting MCA infusion. Const: COMMON NORMALS: no acute distress, average body habitus and patient oriented x3 HENMT: COMMON NORMALS: normocephalic HEAD & SCALP: normal to inspection and normocephalic FACE & SINUS: normal facial exam Eye: COMMON NORMALS: conjunctivae normal GENERAL EYE: appearance normal, both eyes and all related structures CONJUNCTIVA: Yes conjunctivae normal Neck/C-Spine: COMMON NORMALS: no JVD Chest: COMMONS NORMALS: normal inspection of the chest Resp: COMMON NORMALS: normal respiratory effort and No use of accessory muscles EFFORT & INSPECTION: Yes able to speak in complete sentences Cardio: COMMON NORMALS: no JVD GI: INSPECTION: Yes normal to inspection Extremity: COMMON NORMALS: normal to inspection and full ROM Neuro: COMMON NORMALS: patient oriented x3 Course Vital Signs: Vital signs: Vital Signs Temperature 98.0 F 11/12/21 10:14 Pulse Rate 72 11/12/21 10:14 Respiratory Rate 19 H 11/12/21 10:14 Blood Pressure 111/72 11/12/21 10:14 Pulse Oximetry 98 11/12/21 10:38 MDM - COVID MDM Narrative: Medical decision making narrative: Patient presents for COVID- positive and desired MC infusion. Very familiar with Cy. Cy appears very stable no acute distress. Reviewed chest x-ray which shows possible COVID type groundglass infiltrate. I spoke with the [facility] infusion clinic they are going to get him in tomorrow for MC infusion. Patient also placed on inhaler and he is currently taking steroids. I discussed findings and plan with Cy and he is comfortable with that. Patient courage to follow back up the ER due to his significant health history if he has worsening his symptoms. Patient is doing pulse ox at home and sats stayed 9596% consistently COVID Results: No Data to Display Discharge Plan Discharge Patient Disposition: Home Clinical Impression: COVID-19 Condition: Stable Prescriptions: New ProAir HFA 90 mcg/actuation HFA aerosol inhaler 2 inh inhalation Q4H PRN (Reason: shortness of breath or wheezing) Qty: 6.7 RF: 0 No Action metformin 500 mg tablet 750 mg PO BID RF: 0 aspirin [Adult Low Dose Aspirin] 81 mg tablet,delayed release (DR/EC) 81 mg PO DAILY RF: 0 famotidine 20 mg tablet 20 mg PO BID RF: 0 pantoprazole 20 mg tablet,delayed release (DR/EC) 20 mg PO DAILY Qty: 90 RF: 3 mupirocin 2 % ointment 1 applic topical BID 14 Days Qty: 22 RF: 0 clopidogrel [Plavix] 75 mg tablet 75 mg PO QDAY Qty: 90 RF: 3 lisinopril 20 mg tablet 20 mg PO BID Qty: 180 RF: 3 sotalol 120 mg tablet 120 mg PO BID 90 Days Qty: 180 RF: 3 glimepiride 2 mg tablet 2 mg PO DAILY Qty: 90 RF: 3 nitroglycerin [Nitrostat] 0.4 mg tablet, sublingual 0.4 mg SUBLINGUAL DIRECTED Qty: 25 RF: 3 verapamil 80 mg tablet 80 mg PO DAILY Qty: 90 RF: 3 Praluent Pen 75 mg/mL pen injector 75 mg SUBCUT Q14D Qty: 2 RF: 6 ranolazine 500 mg tablet extended release 12 hr See Rx Instructions .ROUTE .COMPLEX Qty: 90 RF: 4 fenofibrate nanocrystallized [Tricor] 145 mg tablet 145 mg PO QDAY Qty: 90 RF: 3 atorvastatin 80 mg tablet 40 mg PO QDAY Qty: 90 RF: 3 magnesium oxide 400 mg (241.3 mg magnesium) Tablet 400 mg PO BID Qty: 60 RF: 0 Discharge Orders: Discharge ED (Routine); Ordered 11/12/21 Ordered By: Dung Flores Other Ambulatory Orders: Request for MCA (Urgent) Timeframe: 1 Day Facility: [facility] - Location: Outpatient [facility] Services Ordered By: Dung Flores Referrals: Temo Bajwa MD [Primary Care Provider] - Discharge Diet: Usual diet Discharge Activity: Increase activity as tolerated Patient Instructions: COVID-19 (Coronavirus Disease 2019) (ED) Activity Restrictions/Additional Instructions: Follow-up with medical provider as directed. Take medications as prescribed. Return to the ER or your medical provider if condition worsens. Please read and understand discharge instructions. If any questions ask please. Call the COVID hotline at [phone] to discuss your appointment. The order has been placed for you to have the infusion and please discuss with them the time to set it up. Coding Level of Care Code ED Grinder Set Up Operator Universal for Artis Fwd Exam Comprehensive
[2021-11-12 10:38] VITALS: O2SAT 98
--- NOTE | 2021-11-12 10:44 | XR_ITS ---
WS: [id number] Exam: XR chest 1V portable [id number] Date/Time of Exam: 11/12/2021 10:44 AM Reason For Exam: COVID + Comparison 05/04/2019. Mild groundglass infiltrate seen along the left heart border which is partially obscured by cardiac p acer. The right lung is clear. No pleural effusions or pneumothorax. Mild cardiac enlargement unchang ed. Signs of previous CABG surgery. Cardiac pacer positioned over the left chest. XR/XR chest 1V portable [id number] IMPRESSION: 1. Mild groundglass infiltrate along the left heart border which is partially o bscured by a cardiac pacer. Developing pneumonia is not excluded. 2. Mild cardiac enlargement unchanged.
== END 2021-11-12 11:16 | disposition home or self-care (01) ==
PROVIDERS: Emergency Provider Nurse Practitioner Family; PCP Family Medicine
DX: U07.1 COVID-19 (principal); E11.9 Type 2 diabetes mellitus without complications; I25.10 Atherosclerotic heart disease of native coronary artery without angina pectoris; I10 Essential (primary) hypertension; E78.1 Pure hyperglyceridemia; I25.5 Ischemic cardiomyopathy; Z79.84 Long term (current) use of oral hypoglycemic drugs; Z79.82 Long term (current) use of aspirin; Z79.02 Long term (current) use of antithrombotics/antiplatelets; Z95.810 Presence of automatic (implantable) cardiac defibrillator; Z95.5 Presence of coronary angioplasty implant and graft; Z95.1 Presence of aortocoronary bypass graft
CPT/HCPCS: 71045; 99282

== ENCOUNTER 2021-11-13 09:03 | Outpatient (CLI) | payer MEDICARE, SELFPAY ==
[2021-11-13 09:20] VITALS: BP 134/83; PULSE 72; RESP 22; TEMP 36.5; O2SAT 99
--- NOTE | 2021-11-13 09:33 | PC.NURSE ---
Allergies verified. Patient unaware of home medications. Did state he took medications for Blood pressure this am.
[2021-11-13 09:35] VITALS: BMI 29.9
[2021-11-13 10:01] VITALS: BP 102/57; PULSE 70; RESP 16; TEMP 36.5; O2SAT 97
[2021-11-13 11:00] VITALS: BP 120/69; PULSE 74; RESP 16; TEMP 36.5; O2SAT 97
== END 2021-11-13 09:04 | disposition home or self-care (01) ==
LOC: OPS 09:07
PROVIDERS: PCP Family Medicine; Visit Provider Nurse Practitioner Family
DX: U07.1 COVID-19 (principal)
CPT/HCPCS: 96365

== ENCOUNTER → 2021-12-10 14:58 | Outpatient (BNVA) | payer MEDICARE, SELFPAY | PROVIDERS: PCP Family Medicine; Visit Provider Internal Medicine | DX: E11.40 Type 2 diabetes mellitus with diabetic neuropathy, unspecified (principal); E11.59 Type 2 diabetes mellitus with other circulatory complications; E11.319 Type 2 diabetes mellitus with unspecified diabetic retinopathy without macular edema; I25.10 Atherosclerotic heart disease of native coronary artery without angina pectoris; Z86.16 Personal history of COVID-19; Z79.84 Long term (current) use of oral hypoglycemic drugs | CPT/HCPCS: 80053; 83036; 99214 ==

== ENCOUNTER 2021-12-10 15:48 | Outpatient (CLI) | payer MEDICARE, SELFPAY ==
[2021-12-10 16:55] LABS: Estmated Average Glucose 217; Hemoglobin A1C 9.2 % (4.0-6.0)
[2021-12-10 17:16] LABS: Alanine Aminotransferase 36 U/L (0-41); Alkaline Phosphatase 90 IU/L (40-130); Anion Gap 13.8 (5-19); Aspartate Amino Transferase 25 U/L (0-40); Blood Urea Nitrogen 8 mg/dL (6-20); Carbon Dioxide 24 mmol/L (22-29); Chloride 105 mmol/L (98-107); Globulin 2.6 g/dL (1.3-4.6); Glomerular Filtration Rate 138.4 mL/min (90-130); Glucose 151 mg/dL (65-115); Osmolality Calculated 289 mOsm/kg (285-295); Potassium 3.8 mmol/L (3.5-5.1); Sodium 139 mmol/L (136-145); Total Bilirubin 0.5 mg/dL (0.15-1.2); Total Protein 6.6 g/dL (6.6-8.7)
== END 2021-12-10 15:49 | disposition home or self-care (01) ==
PROVIDERS: PCP Family Medicine; Visit Provider Internal Medicine
DX: E11.40 Type 2 diabetes mellitus with diabetic neuropathy, unspecified (principal); E11.59 Type 2 diabetes mellitus with other circulatory complications; I25.10 Atherosclerotic heart disease of native coronary artery without angina pectoris
CPT/HCPCS: 80053; 83036

== ENCOUNTER → 2022-01-09 11:47 | Outpatient (BNVA) | payer MEDICARE, SELFPAY | PROVIDERS: PCP Family Medicine; Visit Provider Internal Medicine | DX: Z95.810 Presence of automatic (implantable) cardiac defibrillator (principal) | CPT/HCPCS: 93282 ==

== ENCOUNTER → 2022-01-14 15:17 | Outpatient (BNVA) | payer MEDICARE, SELFPAY | PROVIDERS: PCP Family Medicine; Visit Provider Internal Medicine | DX: E11.59 Type 2 diabetes mellitus with other circulatory complications (principal); I25.10 Atherosclerotic heart disease of native coronary artery without angina pectoris; I25.5 Ischemic cardiomyopathy | CPT/HCPCS: 99214 ==

== ENCOUNTER 2022-01-19 10:17 | Outpatient (CLI) | payer MEDICARE, SELFPAY ==
[2022-01-19 12:17] LABS: Chol HDL Ratio 4.45 mg/dL (1.0-5.00); Cholesterol 129 mg/dL (0-200); HDL Cholesterol 29 mg/dL (60-100)
[2022-01-19 13:13] LABS: Triglycerides 1036 mg/dL (0-150)
[2022-01-19 13:43] LABS: LDL Cholesterol Direct 23 mg/dL (0-100)
== END 2022-01-19 10:18 | disposition home or self-care (01) ==
PROVIDERS: PCP Family Medicine; Visit Provider Internal Medicine
DX: E11.40 Type 2 diabetes mellitus with diabetic neuropathy, unspecified (principal); E78.1 Pure hyperglyceridemia
CPT/HCPCS: 80061; 83721

== ENCOUNTER → 2022-01-23 11:48 | Outpatient (BNVA) | payer MEDICARE, SELFPAY | PROVIDERS: PCP Family Medicine; Visit Provider Internal Medicine | DX: Z95.810 Presence of automatic (implantable) cardiac defibrillator (principal) | CPT/HCPCS: 93282 ==

== ENCOUNTER → 2022-02-02 14:54 | Outpatient (BNVA) | payer MEDICARE, SELFPAY | PROVIDERS: PCP Family Medicine; Referring Provider Family Medicine; Visit Provider Specialist | DX: M65.331 Trigger finger, right middle finger (principal); M65.332 Trigger finger, left middle finger; M65.352 Trigger finger, left little finger | CPT/HCPCS: 73130; 99204 ==

== ENCOUNTER → 2022-02-03 13:27 | Outpatient (BNVA) | payer MEDICARE, SELFPAY | PROVIDERS: PCP Family Medicine; Visit Provider Internal Medicine | DX: I25.10 Atherosclerotic heart disease of native coronary artery without angina pectoris (principal); R00.2 Palpitations; E11.59 Type 2 diabetes mellitus with other circulatory complications; I25.5 Ischemic cardiomyopathy; Z95.810 Presence of automatic (implantable) cardiac defibrillator; I47.2 Ventricular tachycardia; E78.1 Pure hyperglyceridemia; I10 Essential (primary) hypertension; Z95.1 Presence of aortocoronary bypass graft; Z79.82 Long term (current) use of aspirin; Z79.02 Long term (current) use of antithrombotics/antiplatelets; Z79.84 Long term (current) use of oral hypoglycemic drugs | CPT/HCPCS: 36415; 80053; 99214 ==

== ENCOUNTER 2022-02-06 08:22 | Outpatient (CLI) | payer MEDICARE, SELFPAY ==
--- NOTE | 2022-02-06 08:37 | ECG_ITS ---
[facility] Test Date: 2022-02-06 Pat Name: Cy Bajwa Department: Room: Gender: Male Tank Carpenter: Suzette Bowmann : 1965 Requested By: Jose Cobb Order Number: [id number] Lali MD: Jose Cobb M.D. Interpretive Statements NAME OF STUDY: LEXISCAN SESTAMIBI STRESS TEST INDICATION: [cad, ]Procedure: At the baseline, the blood pressure was 135/76 mmHg with a heart rate of 71 bpm. The electrocardiogram showed normal sinus rhythm, normal axis with normal ST and T's. The Lexiscan was infused over a period of 20 seconds. A total of 0.4 mg of Lexiscan was infused. The stress phase was continued for a total of 5 minutes. Heart rate was at the end of stress phase was 70 bpm and a blood pressure of 115/70 mmHg. The EKG at the peak infusion revealed since normal sinus rhythm with no significant ST-T wave changes. Sestamibi was injected 20 seconds after the Lexiscan infusion. Blood pressure at the end of recovery phase was 119/61 mmHg with a heart rate of 70 bpm. Conclusion: 1. Normal EKG response to Lexiscan infusion 2. No Lexiscan induced chest pain or cardiac arrhythmia. 3. Normal blood pressure and heart rate response. 4. Sestamibi/sestamibi perfusion scan pending; see separate report. Electronically Signed On 03-08-2022 21:33:02 CDT by Jose Cobb M.D. [id number]
--- NOTE | 2022-02-06 08:37 | NMCV_ITS ---
NM akbar perf SPECT r/s* [id number] Cy Bajwa Age: 57 Gender: M : 1965 Exam Date: 02/06/2022 09:31 Ordering Phys: Jose Cobb M.D ([email or web address]) Technologist: JOSIANE Johnson Exam Location: [facility] Indications: atherosclerotic heart disease of [place] coronary artery STRESS TEST Please [facility] IMAGE PROTOCOL Rest/Stress 1 Lexiscan Day Radiopharmaceutical Dose (mCi) Administration Site Administered by Rest: Tc-99m 11.0 IV JOSIANE Barker Sestamibi Stress:Tc-99m 32.4 IV JOSIANE Barker Sestamibi Rest: 06-Feb-2022 60 Discovery 630 Stress: 06-Feb-2022 30 Discovery 630 0.4mg Lexiscan. Images obtained in supine and prone position. SPECT RESULTS Technical Quality: Excellent Raw Data Analysis: Normal Image Corrections: No attenuation or motion correction applied Summed Stress Score: 2 Summed Rest Score: 4 Summed Difference Score: 1 PERFUSION FINDINGS There is a small sized, partially reversible defect noted in the inferolateral wall. This is consistent with prior infarct with small area of hailey-infarct ischemia FUNCTIONAL RESULTS (calculated via Gated SPECT) Stress Image LV EF (%): 50 Stress EDV (mL):119 TID: 0.85 Stress ESV (mL):60 FUNCTIONAL FINDINGS: There is normal left ventricular systolic function. IMPRESSIONS 1. Abnormal myocardial perfusion imaging with prior infarct and hailey-infarct ischemia seen in the inferolateral wall 2. LV systolic function is normal Jose Cobb MD (Electronically Signed) Final Date: 08 February 2022 12:10 S
[2022-02-06 08:47] VITALS: BMI 30.9
[2022-02-06 10:20] VITALS: BP 119/61; PULSE 70
[2022-02-06] MEDS: regadenoson 0.4 Mg/5 ml Syringe IVP (10:20)
== END 2022-02-06 08:23 | disposition home or self-care (01) ==
LOC: RAD 08:23 → CDL 08:47
PROVIDERS: PCP Family Medicine; Visit Provider Internal Medicine
DX: I25.10 Atherosclerotic heart disease of native coronary artery without angina pectoris (principal)
CPT/HCPCS: 78452; 93017; A9500; J2785

== ENCOUNTER 2022-02-13 07:46 | Day surgery (SDC) | payer MEDICARE, SELFPAY ==
[2022-02-12 10:43] VITALS: BMI 30.2
[2022-02-13 08:02] VITALS: BP 126/95; PULSE 89; RESP 18; TEMP 35.6; O2SAT 97
--- NOTE | 2022-02-13 08:20 | P.ANESASSM_ITS ---
Pre-Anesthetic Assessment Height/Weight: Height 1.91 m Weight 109.769 kg Temp Pulse Resp BP Pulse Ox 96.0 F L 89 18 126/95 97 02/13/22 08:02 02/13/22 08:02 02/13/22 08:02 02/13/22 08:02 02/13/22 08:02 Preop Diagnosis: Right long finger triggering Operation Date: 02/13/22 09:00 Proposed Procedures p Right long Trigger Finger Release 51148/m65.30(Right) - Vanessa Nagel MD Familial anesthetic complications: None Was Beta Srinivas taken within 24 hours: Yes Was Clonidine taken within 24 hours: N/A Last intake: Intake Last Liquid Date 02/12/22 Last Liquid Time :30 Last Solid Date 02/12/22 Last Solid Time Social No alcohol and No tobacco Exam alert, oriented x 3, clear to auscultation bilaterally and regular rate & rhythm Airway Submandibular: within normal limits Cervical ROM: within normal limits Mallampati: Class II Dentition: chipped Comments: Comments: Missing multiple teeth CV/HEM Arrythmia (Hx of ventricular tachycardia ), Coronary Artery Disease, Hypertension and Myocardial Infarction S/P CABG S/P ICD S/P coronary artery stents METS > 4 Nuc Med 02/06/22 ?IMPRESSIONS ?1. Abnormal myocardial perfusion imaging with prior infarct and hailey-infarct ?ischemia seen in the inferolateral wall ?2. LV systolic function is normal TTE 10/14 CONCLUSIONS ?1-Normal left ventricular cavity size. Mild? decreased left ?ventricular systolic function.? Distal anterior and apical wall ?hypokinesis.left ventricular ejection fraction is estimated at ?50 %. Grade II/IV diastolic dysfunction, moderately elevated ?filling pressures. ?2-The right ventricle is normal in size and function.? ?Catheter/pacemaker wire visualized in the right ventricle. ?3-The right atrium is normal in size.? Catheter/pacemaker wire ?in the right atrial cavity. ?4-There is no pericardial effusion. ?5-No significant valve abnormalities. ?6-Pulmonary artery systolic pressure is within normal limits. ?7-when compared to the prior echocardiogram there is slight ?worsening of left ventricle ejection fraction from 60% to 50% ?which is mildly reduced now.? Wall motion abnormality in the ?distal and apical left ventricle is not new and was seen before. Hepatic None reported GI Gastroesophageal Reflux Disease (Well controlled) Metabolic Diabetes Mellitus [facility] Trigger finger Neuropsych Neuropathy Anesthetic Plan Anesthesia: Anesthesia Evaluation, MAC and Regional (specify below) (Sunitha Block) Other: I discussed anesthetic options, risk and benefits with patient including including PONV, sore throat (sometimes severe), corneal abrasion, positioning and peripheral nerve injuries, life threatening allergic reaction, post operative ICU admission requiring prolonged intubation, stroke, heart attack, , LAST, block failure with conversion to general, tourniquet pain, and rare incidences of recall. Patient does not want a breathing device placed if possible. He is concerned about tourniquet pain, however after further discussion elected [place] block with sedation. Patient consents to proceed with general anesthesia if needed. Risk of > 500 ml blood loss (7ml/kg in children): No Medications/Allergies Home Medications Medication Instructions Recorded Confirmed Last Taken Type metformin 500 mg tablet 750 mg PO BID tab 11/15/19 02/13/22 02/12/22 History magnesium oxide 400 mg (241.3 mg 400 mg PO BID #60 tab 12/04/19 02/13/22 02/12/22 Rx magnesium) tablet aspirin 81 mg tablet,delayed 81 mg PO DAILY 07/22/20 02/12/22 Unknown History release (Adult Low Dose Aspirin) famotidine 20 mg tablet 20 mg PO BID 09/17/20 02/13/22 02/12/22 History clopidogrel 75 mg tablet (Plavix) 75 mg PO QDAY #90 tab 03/20/21 02/12/22 Unknown Rx glimepiride 2 mg tablet 2 mg PO DAILY #90 tab 03/20/21 02/13/22 02/12/22 Rx lisinopril 20 mg tablet 20 mg PO BID #180 tab 03/20/21 02/13/22 02/12/22 Rx nitroglycerin 0.4 mg sublingual 0.4 mg SUBLINGUAL DIRECTED #25 04/14/21 02/12/22 Unknown Rx tablet (Nitrostat) tab verapamil 80 mg tablet 80 mg PO DAILY #90 tab 06/25/21 02/13/22 02/12/22 Rx alirocumab 75 mg/mL subcutaneous 75 mg SUBCUT Q14D #2 ml 08/22/21 02/13/22 02/06/22 Rx pen injector (Praluent Pen) atorvastatin 80 mg tablet 40 mg PO QDAY #90 tab 10/29/21 02/12/22 Unknown Rx fenofibrate nanocrystallized 145 145 mg PO QDAY #90 tab 01/19/22 02/13/22 02/12/22 Rx mg tablet (Tricor) mupirocin 2 % topical ointment 1 applic TOPICAL BID 02/12/22 02/13/22 02/12/22 History (Centany) ranolazine 500 mg tablet,extended See Rx Instructions .ROUTE .COMPLEX 02/12/22 02/13/22 02/12/22 History release,12 hr (Ranexa) sotalol 120 mg tablet (Betapace) 120 mg PO BID 02/12/22 02/13/22 02/13/22 06:30 History Allergies Allergy/AdvReac Type Severity Reaction Status Date / Time amiodarone Allergy Severe Anaphylaxis Verified 02/13/22 07:55 mold Allergy cough Verified 02/13/22 07:55 ragweed pollen Allergy cough Verified 02/13/22 07:55 [facility] Anesthesia Medical History Coronary artery arteriosclerosis Depression HTN (hypertension) Controlled Hypertriglyceridemia Continue home medicines ICD (implantable cardioverter-defibrillator) in place Insomnia Ischemic cardiomyopathy Status post stent, saphenous vein graft to diagonal branch. Continue statin, aspirin, Plavix Type 2 diabetes mellitus Resume metformin on Wednesday Ventricular tachycardia Sotalol increased. Appointment with electrophysiology for possible ablation Vestibular neuronitis Surgical History H/O elbow surgery History of implantable cardiac defibrillator (ICD) Hx of heart artery stent PCI of SVG to diagonal 12/02/2019 S/P appendectomy S/P CABG (coronary artery bypass graft) S/P cardiac catheterization S/P implantation of automatic cardioverter/defibrillator (AICD) S/P shoulder surgery Status post knee surgery Family History Mother Hypertension Father Hypertension Social History Smoking and tobacco status: never smoked Second hand smoke exposure: No Smoking risk assessment/counseling performed?: Yes Alcohol intake: current Alcohol intake frequency: few times a month Alcohol type: beer Desire information about alcohol rehabilitation?: No Counseling given: Yes Desire information about substance/drug rehabilitation?: No Counseling given: Yes Adopted: No Caregiver/support person: No Lives independently: Yes Household members: none Housing: House Marital status: Number of children: 2 Number of grandchildren: 3 Highest education level completed: Some College, No Degree service: No Current occupational status: disabled History of recent travel: No Sexually active: Yes Current gender identity: Male Data Anesthesia Cardiac Studies: Echocardiogram 10/07/21 Sestamibi Stress Test (Cardiology) 02/06/22
[2022-02-13 08:28] LABS: Glucose Point of Care 305 mg/dL (70-110)
[2022-02-13] MEDS: sodium chloride 0.9% 1,000 ML 30 ML IV (08:41)
[2022-02-13] MEDS: acetaminophen 1,000 MG/100 ML PIGGYBACK 400 MG IV (08:42)
[2022-02-13] MEDS: CELEcoxib 200 mg Capsule 400 MG PO (08:44)
--- NOTE | 2022-02-13 08:56 | P.HPUD_ITS ---
Surgery/Procedure H&P Update DATE OF PROCEDURE: February 13, 2022 DATE H&P PERFORMED: 02/02/22 H&P UPDATE INFORMATION: I have reviewed H&P completed within last 30 days, I have examined patient prior to procedure, No changes to prior documentation and H&P is in [facility] EMR on date indicated PREOP DIAGNOSIS: Right long finger triggering PLANNED PROCEDURE: Operation Date: 02/13/22 09:00 Proposed Procedures p Right long Trigger Finger Release 80802/m65.30(Right) - Vanessa Nagel MD Related Problem List Diagnoses (1) Trigger middle finger of right hand:
[2022-02-13 09:59] VITALS: BP 131/63; PULSE 69; RESP 12; TEMP 36.8; O2SAT 95
[2022-02-13 10:04] VITALS: BP 101/73; PULSE 70; RESP 16; O2SAT 96
[2022-02-13 10:09] VITALS: BP 117/81; PULSE 70; RESP 16; TEMP 36.2; O2SAT 95
[2022-02-13 10:26] VITALS: BP 137/99; PULSE 69; RESP 18; TEMP 36.6; O2SAT 97
--- NOTE | 2022-02-13 10:26 | P.OP_ITS ---
Operative Report Date of procedure: February 13, 2022 Pre-op diagnosis: Right long finger triggering Post-op diagnosis: Right long finger triggering Procedure done: Right long finger trigger release Specimens removed/disposition: None Pathology: none sent Surgeon: Vanessa Nagel Anesthesia: MAC (With [place] block, ASA 3) Estimated blood loss (mL): 5 Tourniquet time (min): 34 IV fluids (mL): 500 Urine output (mL): 0 (No Fine) Complications: None Findings: Significant compression at the A1 daria with tendon inflammation Condition: stable Disposition: PACU (Then to same-day surgery for discharge to home) Brief History: Patient states that he has had triggering for approximately 2 months with no known injury. He states that his pain keeps him awake at times. He has previously had a cortisone injection to the left small finger, which did not give him any residential relief.? He states the right long finger triggering is the most painful for him. He wishes to proceed with right long finger trigger release. Risks and complications are discussed. Questions were answered. Consents were signed. Procedure: Patient was brought to the operating theater. He was placed on the operating room table. A Sunitha block was administered without difficulty. Patient tolerated it well. 2 g of Ancef was administered. A tourniquet was placed high on the arm and following exsanguination, was elevated for the [place] block. Tourniquet time was 34 minutes. Surgical pause was performed prior to commencement of the surgical procedure. At the time of the surgical pause we identified the site and side of surgery. We also identified the patient's identity and appropriate administration of IV antibiotics. Following the surgical pause, an incision was made along the distal palmar crease beneath the long finger. Dissection continued through the skin to the subcutaneous tissues using a scalpel. Blunt dissection was then utilized to spread soft tissues and allow access to the A1 daria. It was then incised longitudinally and sharply using a knife. This was accomplished without difficulty and atraumatically. Once the A1 daria was released, tendons were brought up out of the wound and evaluated. There were no gross masses on the tendons. Tendons were returned to normal position. We then irrigated the wound and subsequently closed it with 3-0 nylon with an interrupted mattress type suture. Following closure of the wound, the wound was injected with 3 mL of bupivacaine into the subcutaneous tissues as a local anesthetic. Sterile dressing was then placed consisting of Dermabond, Opsite, fluffed fluffs, sterile soft roll, and an Patrick wrap. The patient was returned to recovery in sat isfactory condition. He will be discharged home to follow-up with me in the office. There were no complications and no specimens.
--- NOTE | 2022-02-13 13:05 | ANE.PACU2 ---
Inpatient post-anesthesia follow up: Airway intact: Yes Vital signs: Temperature 97.9 F Pulse Rate 69 Respiratory Rate 18 Blood Pressure 137/99 Pulse Oximetry 97 Oxygen Delivery Me thod Room Air Oxygen Flow Rate Fraction of Inspir ed Oxygen Hydration adequate: Yes Nausea and vomiting: No Pain level: 1 Mental status: Baseline
== END 2022-02-13 10:49 | disposition home or self-care (01) ==
PROVIDERS: PCP Family Medicine; Visit Provider Specialist
PROC: (CPT 26055; principal; 2022-02-13 09:00)
DX: M65.331 Trigger finger, right middle finger (principal); Z95.1 Presence of aortocoronary bypass graft; Z95.5 Presence of coronary angioplasty implant and graft; K21.9 Gastro-esophageal reflux disease without esophagitis; E11.40 Type 2 diabetes mellitus with diabetic neuropathy, unspecified; F32.9 Major depressive disorder, single episode, unspecified; I10 Essential (primary) hypertension
CPT/HCPCS: 26055; 36416; 82962; J0690; J2250; J2704; J3010; J3490; J7030

== ENCOUNTER → 2022-02-27 08:54 | Outpatient (BNVA) | payer MEDICARE, SELFPAY | PROVIDERS: PCP Family Medicine; Visit Provider Nurse Practitioner Family | DX: M65.331 Trigger finger, right middle finger (principal); M65.352 Trigger finger, left little finger; M65.332 Trigger finger, left middle finger | CPT/HCPCS: 99213 ==

== ENCOUNTER → 2022-03-03 15:30 | Outpatient (BNVA) | payer MEDICARE, SELFPAY | PROVIDERS: PCP Family Medicine; Visit Provider Internal Medicine | DX: I25.10 Atherosclerotic heart disease of native coronary artery without angina pectoris (principal); R00.2 Palpitations; I10 Essential (primary) hypertension; E11.59 Type 2 diabetes mellitus with other circulatory complications; I25.5 Ischemic cardiomyopathy; Z95.810 Presence of automatic (implantable) cardiac defibrillator; I47.2 Ventricular tachycardia; E78.1 Pure hyperglyceridemia | CPT/HCPCS: 99214 ==

== ENCOUNTER → 2022-03-09 09:56 | Outpatient (BNVA) | payer MEDICARE, SELFPAY | PROVIDERS: PCP Family Medicine; Visit Provider Nurse Practitioner Family | DX: M65.352 Trigger finger, left little finger (principal); M65.332 Trigger finger, left middle finger | CPT/HCPCS: 73130; 99213 ==

== ENCOUNTER → 2022-03-16 09:59 | Outpatient (BNVA) | payer MEDICARE, SELFPAY | PROVIDERS: PCP Family Medicine; Visit Provider Internal Medicine | DX: E11.59 Type 2 diabetes mellitus with other circulatory complications (principal); E11.40 Type 2 diabetes mellitus with diabetic neuropathy, unspecified; E11.319 Type 2 diabetes mellitus with unspecified diabetic retinopathy without macular edema; I25.10 Atherosclerotic heart disease of native coronary artery without angina pectoris; E78.1 Pure hyperglyceridemia; Z79.84 Long term (current) use of oral hypoglycemic drugs | CPT/HCPCS: 99214 ==

== ENCOUNTER 2022-03-18 11:34 | Outpatient (CLI) | payer MEDICARE, SELFPAY ==
[2022-03-18 12:42] LABS: Alanine Aminotransferase 24 U/L (0-41); Albumin Level 4.2 g/dL (3.5-5.2); Alkaline Phosphatase 77 IU/L (40-130); Anion Gap 19.3 (5-19); Aspartate Amino Transferase 20 U/L (0-40); Blood Urea Nitrogen 14 mg/dL (6-20); Calcium 9.5 mg/dL (8.5-10.5); Carbon Dioxide 20 mmol/L (22-29); Chloride 101 mmol/L (98-107); Chol HDL Ratio 4.78 mg/dL (1.0-5.00); Cholesterol 129 mg/dL (0-200); Globulin 2.2 g/dL (1.3-4.6); Glomerular Filtration Rate 115.4 mL/min (90-130); Glucose 294 mg/dL (65-115); HDL Cholesterol 27 mg/dL (60-100); Osmolality Calculated 293 mOsm/kg (285-295); Potassium 4.3 mmol/L (3.5-5.1); Sodium 136 mmol/L (136-145); Total Bilirubin 0.4 mg/dL (0.15-1.2); Total Protein 6.4 g/dL (6.6-8.7); Triglycerides 652 mg/dL (0-150)
[2022-03-18 13:01] LABS: LDL Cholesterol Direct 18 mg/dL (0-100)
[2022-03-18 13:18] LABS: Estmated Average Glucose 212
== END 2022-03-18 11:35 | disposition home or self-care (01) ==
LOC: LAB 11:38
PROVIDERS: Internal Medicine; PCP Family Medicine; Visit Provider Internal Medicine
DX: E11.9 Type 2 diabetes mellitus without complications (principal); E78.1 Pure hyperglyceridemia
CPT/HCPCS: 80053; 80061; 83036; 83721

== ENCOUNTER 2022-03-20 07:40 | Observation (INO) | payer MEDICARE, SELFPAY ==
[2022-03-19 13:06] VITALS: BMI 30.7
[2022-03-20] VITALS (25 sets, daily range): BP systolic 126–141; BP diastolic 73–84; PULSE 70; RESP 14–23; TEMP 36.9–37; O2SAT 91–99
[2022-03-20] MEDS: diphenhydrAMINE 50 mg Capsule PO (05:45)
[2022-03-20 05:49] LABS: Basophils # 0.1 10^3/uL (0.0-0.1); Basophils % 0.7 %; Eosinophils # 0.2 10^3/uL (0.0-0.8); Eosinophils % 1.9 %; Hemoglobin 14.7 g/dL (11.7-16.6); Lymphocytes # 1.8 10^3/uL (0.8-4.8); Lymphocytes % 21.4 %; Mean Corpuscular Hemoglobin 29.3 pg (28.0-34.0); Mean Corpuscular Volume 83.8 fl (80-94); Mean Platelet Volume 11.1 fL (7.4-10.4); Monocytes # 0.9 10^3/uL (0.2-0.9); Monocytes % 11.2 %; Neutrophils # 5.37 10^3/uL (1.8-7.7); Neutrophils % 63.6 %; Nucleated Red Blood Cells % 0 %; Platelet Count 138 10^3/cmm (130-400); Red Blood Count 5.01 10^6/uL (4.1-5.3); Red Cell Distribution Width 13.5 % (12.1-15.1); White Blood Count 8.4 10^3/uL (4.0-10.0)
[2022-03-20 05:58] LABS: INR 0.97 (0.8-1.2)
--- NOTE | 2022-03-20 06:00 | XACV_ITS ---
Exam Room: 2 Ht: 191 cm Wt: 112 kg BSA: 2.47 m2 Gender: Male : 1965 Any Known Allergies: Other Exam Priority: Routine Procedure(s): Procedure Description: Diagnostic procedure Procedure Description: Aortogram Procedure Description: Venous Graft Catheterization Procedure Description: ADHIKARI Graft Catheterization Procedure Description: Miscellaneous Procedure Description: Perclose Procedure Description: Coronary Angiography Diagnostic Cath Status: Elective Diagnostic Findings * Left Anterior Descendingis occluded in the mid segment after giving rise to a large sized diagonal artery. * Proximal Right Coronary Artery: subtotal occlusion, JAMIL: 1 flow. * INDICATION: Patient has been having frequent NSVT episodes that are symptomatic and were detected on his device interrogation. He underwent stress test that was abnormal. * ADHIKARI to LAD is patent. * Left Main has no disease. * Circumflex has no disease. * Sequential SVG graft from Ascending Aorta to Distal Right Coronary Artery: total occlusion, JAMIL: 0 flow. * Sequential SVG graft from Ascending Aorta to 2nd Diagonal: total occlusion, JAMIL: 0 flow. * Sequential SVG graft from Ascending Aorta to First Obtuse Marginal Branch Segment: patent. * Coronary angiography shows right dominance. Conclusions 1. Severe multivessel [place] coronary artery disease. 2. Patent ADHIKARI to LAD and SVG to OM. Occluded SVG to RCA and SVG to diagonal artery. 3. Patient has prior CABG. Recommendations * Aggressive risk factor modification. * Will repeat device check on follow up visit in 7-10 days. If frequency of NSVT is not decreasing can send for EP evaluation regarding possible ablation vs medical therapy. * Outpatient cardiology follow up in 7-10 days. Interventional RX Recommendation: medical therapy and/or counseling Diagnostic RX Recommendation: medical therapy and/or counseling Pressures Phase:Rest AO : 131 / 85 ( 105 ) @ 7:52:00 AM 134 / 86 ( 108 ) @ 7:58:00 AM 125 / 79 ( 101 ) @ 8:08:00 AM Clinical Evaluation EBL: 5mL-10mL Procedural Details Procedure Consent Obtained. Admit Source: Out Patient. Pre-Procedure Time Out. Identified patient by full name and date of as verbalized by the patient/guarantor. Does the consent match the physician's order: Yes. Accurate & Complete Informed Consent: Yes. Inpatient/Outpatient History & Physical on Chart: Yes. If H&P is completed, is and addenduem needed: N/A; If yes, is the addendum complete: N/A. Visualize and Verify Site with Patient/Guarantor: N/A. Relevant Radiology Images available: N/A. Pre-op teaching completed and patient verbalized understanding. The risks, benefits, and alternatives of sedation and/or procedure were discussed by physician. The patient agrees to continue. Procedure started. [facility] Clinical Fraility Score: 3: Managing Well. 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 Chest Pain Symptom Assessment: Atypical Angina. Correct patient, site and procedure confirmed by cath team. Current diagnosis: VT, Abnormal stress test. PERRLA. Strong, equal hand sheather bilaterally. Lungs clear x 5 lobes. IV Site on Arrival: 20 gauge in the left anticubital. IV Fluids: 0.9% NaCl at KVO. 0 mL infused prior to company laborer. Pre Procedural Pulses: bilateral dorsalis pedis was 2+. Pre Procedural Pulses: bilateral radial was 3+. Oxygen started at 2liters/min via nasal canula. right groin was prepped with chloroprep then draped in the usual sterile fashion. left groin was prepped with chloroprep then draped in the usual sterile fashion. Baseline sample Acquired. HR: 73 BPM. Physician notified. Physician arrived. Physician scrubbed in. Immediate Pre-Procedure Time Out. Correct Patient: Yes; Correct Procedure: Yes; Correct Site: Yes; Correct Patient Position: Yes; Correct Supplies: Yes; Dried Flammable Prep: Yes; Blood Products Available: N/A. Lidocaine 1% infiltrated to the right groin. Arterial access obtained with micropuncture set. A 5 [place] JL4 catheter in over wire. Multiple views taken of left coronary artery. Catheter removed over the standard wire. A 5 [place] JR4 catheter in over wire. SVG to RCA occluded. SVG's to OM visualized and patent. Catheter removed over the standard wire. A 6 [place] LCB catheter in over wire. Catheter out. A 5 [place]ian IM catheter in over wire. ADHIKARI to LAD visualized. Catheter removed over the standard wire. A 5 panamanian Angled Pig catheter in over wire. Aortogram performed in ELAINE @ 10 mL/second for a total of 30 mL. Catheter removed over the standard wire. A 5 panamanian AL1 catheter in over wire. SVG to Diaganol occluded. Catheter removed over the standard wire. Perclose deployed at this time into R femoral artery. A Perclose (Lendino) was successful obtaining hemostatsis at the Right Femoral artery insertion site. Lot # [id number] Exp 09/23/23. 2 minutes of manual compression held to ensure hemostasis. Post Procedure: Pulses reassessed and unchanged. PERRLA. Strong, equal hand sheather bilaterally. No VTE prophylaxis required. Post-op diagnosis: Sever multivessel CAD. Occluded SVG to RCA and Diag. Medication's Wasted: Heparin = 1000 u. Total IV fluids: 43 mL. Complications: none. Estimated blood loss: 5mL-10mL. Responsiveness - Normal response to verbal stimuli; alert and oriented, PERRLA. Airway - Unaffected, no intervention required; spontaneous ventilation. Circulation: W/N/L, pulses unchanged. Nausea/Vomiting: No. Procedure completed. Patient transferred by bed to ICU. Vital chart was stopped. Access Site Site: Right Femoral artery Sheath Size: 6 Fr Hemostasis Method: Perclose (Lendino) Hemostasis Success: Successful Procedure Medications Start: 6:39 AM Stop: 6:39 AM Medication: 0.9% Saline Amount: 75 ml/hr Route: I.V. drip Start: 6:39 AM Stop: 6:39 AM Medication: Versed Amount: 1 mg Route: I.V. Start: 6:40 AM Stop: 6:40 AM Medication: Fentanyl Amount: 50 mcg Route: I.V. Start: 6:43 AM Stop: 6:43 AM Medication: Versed Amount: 1 mg Route: I.V. Start: 6:45 AM Stop: 6:45 AM Medication: Fentanyl Amount: 50 mcg Route: I.V. Start: 6:46 AM Stop: 6:46 AM Medication: Versed Amount: 1 mg Route: I.V. Start: 6:55 AM Stop: 6:55 AM Medication: Versed Amount: 1 mg Route: I.V. Start: 7:12 AM Stop: 7:12 AM Medication: Versed Amount: 1 mg Route: I.V. Start: 7:17 AM Stop: 7:17 AM Medication: Fentanyl Amount: 50 mcg Route: I.V. I, the attending physician, have reviewed and verified all procedure medications. Yes, all medications given per verbal order History/Risk Factors Hypertension: Yes Dyslipidemia: Yes Peripheral Arterial Disease (PAD): No Myocardial Infarction (UT): No Obesity: Yes Renal Disease: No Tobacco Use: Never Prior Interventions PCI: Yes CABG: Yes Valve Surgery: No Date of PCI: 12/02/2019 Report Signatures Finalized by Jose Cobb MD on 03/28/2022 07:23 PM
--- NOTE | 2022-03-20 06:34 | W.PM.OPSUD ---
Surgery/Procedure H&P Update DATE OF PROCEDURE: March 20, 2022 DATE H&P PERFORMED: 03/03/22 H&P UPDATE INFORMATION: I have reviewed H&P completed within last 30 days, I have examined patient prior to procedure and No changes to prior documentation PREOP DIAGNOSIS: Ventricular tachtycardia/ abnormal stress test PRIMARY INDICATION FOR PROCEDURE: Ventricular tachtycardia/ abnormal stress test PLANNED PROCEDURE: Operation Date: 03/20/22 07:00 Proposed Procedures p Cardiac Catheterization(Left) - Jose Cobb M.D Possible percutaneous coronary intervention PATIENT REASSESSED PRIOR TO SEDATION, WITH NO CHANGE NOTED: Yes PHYSICAL EXAM: alert, oriented x 3, clear to auscultation bilaterally and regular rate & rhythm AIRWAY EVAL/ANESTHESIA PLAN: ASA III, Monitored Anesthesia, Local Anesthesia, Risks, benefits & alternatives of sedation and/or procedure discussed and Patient agrees to continue as planned
--- NOTE | 2022-03-20 08:00 | PC.NURSE ---
Pt was admitted to ICU at 0730 via bed on room air. Dressing was in place on right groin site. No hematoma noted.
[2022-03-20 10:02] LABS: Blood Urea Nitrogen 15 mg/dL (6-20); Calcium 9.2 mg/dL (8.5-10.5); Carbon Dioxide 20 mmol/L (22-29); Chloride 103 mmol/L (98-107); Glomerular Filtration Rate 98.9 mL/min (90-130); Glucose 264 mg/dL (65-115); Osmolality Calculated 294 mOsm/kg (285-295); Sodium 137 mmol/L (136-145)
--- NOTE | 2022-03-20 10:06 | PC.CHAP ---
Pastoral Care Encounter/Spiritual Assessment Type of Contact [] Declined flap lining binder visit [] Patient/Family/Request visit [] Outpatient visit [] Follow-up visit [] Physician referral [] Code/Alert [x] Routine visit [] Staff referral [] Actively dying [x] Patient sleeping [x] Family support [] [] Out of room [] Palliative care [] [] Receiving care in room [] Pre-surgical visit [] Trauma [] Long length of stay [x] ICU visit [] Other: Relational/Emotional Strength [] Patient feels connected with others/family/visitors/staff [] Distress [] Loneliness/isolation [] Abandonment Spirituality of Patient [] Person of Lois [] Attends Jainism of their Lois [] Believes in Prayer [] Reads Bible or Lutheran materials [] There are Spiritual issues to be addressed Traffic Lieutenant Interventions [x] Prayer [] Active listening [] Non-anxious presence [] Spiritual/emotional support [] Crisis/trauma care [] Spiritual counseling [] Bereavement support [] Provided bereavement packet [] Provided Bible/devotional materials [] Provided toy/stuffed animal, coloring book to patient or family member [] Provided Communion [] Anointing/[place] [] Salvation [x] Completed spiritual assessment [] Other: Impact on Illness or Injury [] Angry [] Fearful [] Anxious [] Often cries [] Exhaustion [] Unable to work [] Unable to attend moravian [] Unable to walk/stand [] Unable to read [] Unable to drive [] Unable to eat/drink [] Unable to sleep [] Unable to be with family [] Patient intubated [] Other: Summary Time spent with patient
[2022-03-20 10:10] LABS: Anion Gap 18.1 (5-19); Potassium 4.1 mmol/L (3.5-5.1)
--- NOTE | 2022-03-20 13:15 | PC.NURSE ---
Pt ambulated around unit. No hematoma noted or bleeding from site.
--- NOTE | 2022-03-20 14:10 | PC.NURSE ---
Discharged from ICU at 1400 to personal vehicle with family member.
== END 2022-03-20 14:00 | disposition home or self-care (01) ==
LOC: ICU 07:41
PROVIDERS: Admitting Provider Internal Medicine; PCP Family Medicine; Visit Provider Internal Medicine
DX: I25.10 Atherosclerotic heart disease of native coronary artery without angina pectoris (principal); Z95.1 Presence of aortocoronary bypass graft; I10 Essential (primary) hypertension; E78.5 Hyperlipidemia, unspecified; E66.9 Obesity, unspecified; Z68.30 Body mass index [BMI] 30.0-30.9, adult; Z79.82 Long term (current) use of aspirin; Z79.84 Long term (current) use of oral hypoglycemic drugs; F32.9 Major depressive disorder, single episode, unspecified; I25.5 Ischemic cardiomyopathy; E11.59 Type 2 diabetes mellitus with other circulatory complications; Z95.810 Presence of automatic (implantable) cardiac defibrillator; E78.1 Pure hyperglyceridemia
CPT/HCPCS: 36415; 80048; 85025; 85610; 93455; 96360; 99152; 99153; C1760; C1769; C1887; C1894; G0378; J1644; J2250; J3010; J3490; J7030; Q0163; Q9967

== ENCOUNTER → 2022-04-03 09:32 | Outpatient (BNVA) | payer MEDICARE, SELFPAY | PROVIDERS: PCP Family Medicine; Visit Provider Nurse Practitioner Family | DX: Z09 Encounter for follow-up examination after completed treatment for conditions other than malignant neoplasm (principal); I47.2 Ventricular tachycardia; I25.10 Atherosclerotic heart disease of native coronary artery without angina pectoris; Z95.1 Presence of aortocoronary bypass graft | CPT/HCPCS: 80048; 99214 ==

== ENCOUNTER 2022-04-14 06:00 | Outpatient (RCR) | payer MEDICARE, SELFPAY | END 2022-04-23 23:59 | disposition home or self-care (01) | LOC: SOT 06:00 | PROVIDERS: PCP Family Medicine; Referring Provider Specialist; Visit Provider Specialist | DX: Z47.89 Encounter for other orthopedic aftercare (principal) | CPT/HCPCS: 97110; 97140; 97166 ==

== ENCOUNTER 2022-04-24 06:00 | Outpatient (RCR) | payer MEDICARE, SELFPAY | END 2022-05-24 23:59 | disposition home or self-care (01) | LOC: SOT 06:00 | PROVIDERS: PCP Family Medicine; Referring Provider Specialist; Visit Provider Specialist | DX: Z47.89 Encounter for other orthopedic aftercare (principal) | CPT/HCPCS: 97018; 97035; 97110; 97140 ==

== ENCOUNTER → 2022-05-04 14:38 | Outpatient (BNVA) | payer MEDICARE, SELFPAY | PROVIDERS: PCP Family Medicine; Visit Provider Specialist | DX: M65.352 Trigger finger, left little finger (principal); M65.332 Trigger finger, left middle finger | CPT/HCPCS: 73130; 99214 ==

== ENCOUNTER 2022-05-15 06:55 | Day surgery (SDC) | payer MEDICARE, SELFPAY ==
[2022-05-13 11:22] VITALS: BMI 30.9
[2022-05-15] VITALS (8 sets, daily range): BP systolic 111–158; BP diastolic 74–90; PULSE 70–84; RESP 12–18; TEMP 36.1–37.1; O2SAT 95–99
--- NOTE | 2022-05-15 07:10 | P.HPUD_ITS ---
Surgery/Procedure H&P Update DATE OF PROCEDURE: May 15, 2022 DATE H&P PERFORMED: 05/04/22 H&P UPDATE INFORMATION: I have reviewed H&P completed within last 30 days, I have examined patient prior to procedure, No changes to prior documentation and H&P is in [facility] EMR on date indicated PREOP DIAGNOSIS: Triggering of the left long and small fingers PLANNED PROCEDURE: Operation Date: 05/15/22 08:20 Proposed Procedures p LEFT HAND LONG FINGER AND SMALL FINGER TRIGGER FINGER RELEASE [id number],M65.30(Left) - Vanessa Nagel MD Related Problem List Diagnoses (1) Trigger middle finger of left hand: (2) Trigger little finger of left hand:
[2022-05-15] MEDS: acetaminophen 1,000 MG/100 ML PIGGYBACK 400 MG IV (07:30)
[2022-05-15] MEDS: sodium chloride 0.9% 1,000 ML 30 ML IV (07:31)
[2022-05-15] MEDS: CELEcoxib 200 mg Capsule 400 MG PO (07:31)
[2022-05-15 07:51] LABS: Glucose Point of Care 231 mg/dL (70-110)
[2022-05-15] MEDS: ceFAZolin 2,000 MG in sodium chloride 0.9% (plus) 50 ML 100 MG IV (08:07)
--- NOTE | 2022-05-15 08:09 | ANES.PREANE2 ---
Pre-Anesthetic Assessment Height/Weight: Height 1.91 m Weight 112.491 kg Temp Pulse Resp BP Pulse Ox 97.4 F L 84 18 111/77 97 05/15/22 07:25 05/15/22 07:25 05/15/22 07:25 05/15/22 07:25 05/15/22 07:25 Preop Diagnosis: Triggering of the left long and small fingers Operation Date: 05/15/22 08:20 Proposed Procedures p LEFT HAND LONG FINGER AND SMALL FINGER TRIGGER FINGER RELEASE 50685,M65.30(Left) - Vanessa Nagel MD Familial anesthetic complications: None Was Beta Srinivas taken within 24 hours: N/A Was Clonidine taken within 24 hours: N/A Last intake: Intake Last Liquid Date 05/14/22 Last Liquid Time 23:20 Last Solid Date 05/14/22 Last Solid Time 21:00 Social Tobacco (chews) and No alcohol Exam alert, oriented x 3, clear to auscultation bilaterally and regular rate & rhythm Airway Mallampati: Class I Dentition: full CV/HEM Coronary Artery Disease, Congestive Heart Failure and Hypertension Defibrillator Metabolic Diabetes Mellitus Anesthetic Plan ASA status: 3 Anesthesia: MAC and Regional (specify below) Risk of > 500 ml blood loss (7ml/kg in children): No Medications/Allergies Home Medications Medication Instructions Recorded Confirmed Last Taken Type metformin 500 mg tablet 750 mg PO BID tab 11/15/19 05/15/22 05/14/22 History magnesium oxide 400 mg (241.3 mg 400 mg PO BID #60 tab 12/04/19 05/15/22 05/14/22 Rx magnesium) tablet aspirin 81 mg tablet,delayed 81 mg PO DAILY 07/22/20 05/15/22 05/14/22 History release (Adult Low Dose Aspirin) famotidine 20 mg tablet 20 mg PO BID 09/17/20 05/15/22 05/14/22 History clopidogrel 75 mg tablet (Plavix) 75 mg PO QDAY #90 tab 03/20/21 05/15/22 05/09/22 Rx nitroglycerin 0.4 mg sublingual 0.4 mg SUBLINGUAL DIRECTED #25 04/14/21 05/15/22 7 Years Ago Rx tablet (Nitrostat) tab ~05/15/15 ranolazine 500 mg tablet,extended 250 mg PO BID 0405/15/22 05/14/22 History release,12 hr (Ranexa) verapamil 240 mg 24 hr 240 mg PO DAILY #90 cap 02/16/22 05/15/22 05/14/22 Rx capsule,extended release alirocumab 75 mg/mL subcutaneous 75 mg SUBCUT Q14D #2 ml 03/19/22 05/15/22 05/03/22 Rx pen injector (Praluent Pen) trazodone 100 mg tablet 100 mg PO BEDTIME 03/19/22 05/15/22 05/14/22 History sotalol 120 mg tablet (Betapace) 120 mg PO BID #180 tab 03/26/22 05/15/22 05/14/22 Rx atorvastatin 80 mg tablet 40 mg PO QDAY tab 04/03/22 05/15/22 05/14/22 History lisinopril 20 mg tablet 20 mg PO BID #180 tab 04/20/22 05/15/22 05/14/22 Rx glimepiride 2 mg tablet See Rx Instructions .ROUTE 04/28/22 05/15/22 05/14/22 Rx .COMPLEX #90 tab naproxen 500 mg tablet 500 mg PO BID PRN #60 tab 05/04/22 05/15/22 05/14/22 Rx fenofibrate nanocrystallized 145 145 mg PO QDAY #90 tab 05/06/22 05/15/22 05/14/22 Rx mg tablet (Tricor) Allergies Allergy/AdvReac Type Severity Reaction Status Date / Time amiodarone Allergy Severe Anaphylaxis Verified 05/15/22 07:06 mold Allergy cough Verified 05/15/22 07:06 ragweed pollen Allergy cough Verified 05/15/22 07:06 Current Medications Generic Name Dose Route Start Last Admin Trade Name Freq PRN Reason Stop Dose Admin Sodium Chloride 1,000 mls @ 30 mls/hr 05/15/22 07:00 05/15/22 07:31 Sodium Chloride 0.9% IV 05/16/22 06:59 30 mls/hr .Q24H YURI Administration PFSH Anesthesia Medical History Coronary artery arteriosclerosis Depression HTN (hypertension) Controlled Hypertriglyceridemia Continue home medicines ICD (implantable cardioverter-defibrillator) in place Insomnia Ischemic cardiomyopathy Status post stent, saphenous vein graft to diagonal branch. Continue statin, aspirin, Plavix Type 2 diabetes mellitus Resume metformin on Wednesday Ventricular tachycardia Sotalol increased. Appointment with electrophysiology for possible ablation Vestibular neuronitis Surgical History H/O elbow surgery History of implantable cardiac defibrillator (ICD) Hx of heart artery stent PCI of SVG to diagonal 12/02/2019 S/P appendectomy S/P CABG (coronary artery bypass graft) S/P cardiac catheterization S/P implantation of automatic cardioverter/defibrillator (AICD) S/P shoulder surgery Status post knee surgery Family History Mother Hypertension Father Hypertension Social History Smoking and tobacco status: never smoked Second hand smoke exposure: No Smoking risk assessment/counseling performed?: Yes Alcohol intake: current Alcohol intake frequency: few times a month Alcohol type: beer Desire information about alcohol rehabilitation?: No Counseling given: Yes Desire information about substance/drug rehabilitation?: No Counseling given: Yes Adopted: No Caregiver/support person: No Lives independently: Yes Household members: none Housing: House Marital status: Number of children: 2 Number of grandchildren: 3 Highest education level completed: Some College, No Degree service: No Current occupational status: disabled History of recent travel: No Sexually active: Yes Current gender identity: Male Data Anesthesia Cardiac Studies: Echocardiogram 10/07/21 Sestamibi Stress Test (Cardiology) 02/06/22
--- NOTE | 2022-05-15 09:18 | SUR.PHASEI ---
09:05 RECEIVED PT FROM OR STAFF. RESPONDS TO VOICE. VENTILATING WELL. LEFT HAND ELEVATED. DENIES PAIN.
--- NOTE | 2022-05-15 09:26 | PM.OP ---
Operative Report Date of procedure: May 15, 2022 Pre-op diagnosis: Triggering of the left long and small fingers Post-op diagnosis: Triggering of the left long and small fingers Procedure done: Release triggering left long and small fingers Pathology: none sent Surgeon: Vanessa Nagel Monotype Caster: None Anesthesia: MAC (With [place] block, ASA 3) Estimated blood loss (mL): 1 Tourniquet time (min): 40 (At 250 mmHg) IV fluids (mL): 400 Urine output (mL): 0 (No Fine) Complications: None Findings: Triggering long and small fingers Condition: stable Disposition: PACU (Then to same-day surgery for discharge to home) Brief History: This 57-year-old gentleman presented to my office with complaints of left hand triggering of the long and small fingers. It has been present for several months, and the patient wished to have a trigger finger release. He had successful trigger finger release on the opposite hand. He did well from this. At rest, and without movement, the patient had no pain, but his pain would increase to 10 of 10 when the finger would trigger. Risks and complications were again discussed with him. Consents were signed. Procedure: Patient was brought to the operating theater. He was placed on the operating room table. A [place] block was administered without difficulty. Patient tolerated it well. Ancef 2 g was administered. A tourniquet was placed high on the arm and was elevated for the [place] block. This followed exsanguination of the arm. Tourniquet time was 40 minutes at 250 mmHg. Surgical pause was performed prior to commencement of the surgical procedure. At the time of the surgical pause we identified the site and side of surgery. We also identified the patient's identity and appropriate administration of IV antibiotics. Following the surgical pause, separate incisions were made along the distal palmar crease beneath the long and small fingers. Dissection continued through the skin to the subcutaneous tissues using a scalpel. Blunt dissection was then utilized to spread soft tissues and allow access to the A1 daria. Each A1 daria was identified through their independent incisions. It was then incised longitudinally and sharply using a knife. This was accomplished without difficulty and atraumatically. Once the A1 daria was released, tendons were brought up out of the wound and evaluated. There were no gross masses on the tendons. Tendons were returned to normal position. We then irrigated the wound and subsequently closed it with 3-0 nylon with an interrupted mattress type suture. Following closure of the wound, the wound was injected with bupivacaine into the subcutaneous tissues as a local anesthetic. Procedure was duplicated through each of the separate incisions. Sterile dressing was then placed consisting of OpSite to each incision, fluffed fluffs, soft roll, and an Patrick wrap. The patient was returned to recovery in satisfactory condition. He will be discharged home to follow-up with me in the office. There were no complications and no specimens. Related Problem List Diagnoses (1) Trigger little finger of left hand: (2) Trigger middle finger of left hand:
--- NOTE | 2022-05-15 12:21 | ANE.PACU2 ---
Inpatient post-anesthesia follow up: Airway intact: Yes Vital signs: Temperature 97.0 F Pulse Rate 72 Respiratory Rate 18 Blood Pressure 158/90 Pulse Oximetry 96 Oxygen Delivery Me thod Room Air Oxygen Flow Rate 8 Fraction of Inspir ed Oxygen Hydration adequate: Yes Nausea and vomiting: No Pain level: 1 Mental status: Baseline
== END 2022-05-15 10:07 | disposition home or self-care (01) ==
PROVIDERS: PCP Family Medicine; Visit Provider Specialist
PROC: (CPT 26055; principal; 2022-05-15 08:10)
DX: M65.332 Trigger finger, left middle finger (principal); M65.352 Trigger finger, left little finger; I25.10 Atherosclerotic heart disease of native coronary artery without angina pectoris; I11.0 Hypertensive heart disease with heart failure; I50.9 Heart failure, unspecified; E11.9 Type 2 diabetes mellitus without complications; Z79.84 Long term (current) use of oral hypoglycemic drugs; Z79.82 Long term (current) use of aspirin; F32.A Depression, unspecified
CPT/HCPCS: 26055 ×2; 36416; 82962; J2250; J2704; J3010; J3490; J7030

== ENCOUNTER 2022-05-25 06:00 | Outpatient (RCR) | payer MEDICARE, SELFPAY | END 2022-06-24 23:59 | disposition home or self-care (01) | LOC: SOT 06:00 | PROVIDERS: PCP Family Medicine; Visit Provider Specialist | DX: M65.332 Trigger finger, left middle finger (principal) | CPT/HCPCS: 97018; 97022; 97110; 97140 ==

== ENCOUNTER → 2022-05-28 13:32 | Outpatient (BNVA) | payer MEDICARE, SELFPAY | PROVIDERS: PCP Family Medicine; Visit Provider Nurse Practitioner Family | DX: Z98.890 Other specified postprocedural states (principal) | CPT/HCPCS: 99024 ==

== ENCOUNTER → 2022-06-03 15:36 | Outpatient (BNVA) | payer MEDICARE, SELFPAY | PROVIDERS: PCP Family Medicine; Visit Provider Internal Medicine | DX: R00.2 Palpitations (principal); I10 Essential (primary) hypertension; E11.59 Type 2 diabetes mellitus with other circulatory complications; I25.10 Atherosclerotic heart disease of native coronary artery without angina pectoris; I25.5 Ischemic cardiomyopathy; Z95.810 Presence of automatic (implantable) cardiac defibrillator; E78.1 Pure hyperglyceridemia; Z95.1 Presence of aortocoronary bypass graft; Z79.84 Long term (current) use of oral hypoglycemic drugs | CPT/HCPCS: 93283; 99214 ==

== ENCOUNTER → 2022-06-16 10:59 | Outpatient (BNVA) | payer MEDICARE, SELFPAY | PROVIDERS: PCP Family Medicine; Visit Provider Internal Medicine | DX: Z79.84 Long term (current) use of oral hypoglycemic drugs (principal); E11.59 Type 2 diabetes mellitus with other circulatory complications; E11.40 Type 2 diabetes mellitus with diabetic neuropathy, unspecified; E11.319 Type 2 diabetes mellitus with unspecified diabetic retinopathy without macular edema; E78.1 Pure hyperglyceridemia; I25.10 Atherosclerotic heart disease of native coronary artery without angina pectoris; I10 Essential (primary) hypertension | CPT/HCPCS: 36415; 80053; 80061; 83036; 99214 ==

== ENCOUNTER → 2022-06-23 12:04 | Outpatient (BNVA) | payer MEDICARE, SELFPAY | PROVIDERS: PCP Family Medicine; Visit Provider Student in an Organized Health Care Education/Training Program | DX: M25.641 Stiffness of right hand, not elsewhere classified (principal) | CPT/HCPCS: 73130; 99213 ==

== ENCOUNTER 2022-06-25 06:00 | Outpatient (RCR) | payer MEDICARE, SELFPAY | END 2022-07-24 23:59 | disposition home or self-care (01) | LOC: SOT 06:00 | PROVIDERS: PCP Family Medicine; Visit Provider Specialist | DX: M65.332 Trigger finger, left middle finger (principal) | CPT/HCPCS: 97018; 97035; 97110; 97140 ==

== ENCOUNTER 2022-07-25 06:00 | Outpatient (RCR) | payer MEDICARE, SELFPAY ==
[2022-07-27 09:13] LABS: Blood Urea Nitrogen 16 mg/dL (6-20); Calcium 9.4 mg/dL (8.5-10.5); Carbon Dioxide 20 mmol/L (22-29); Chloride 98 mmol/L (98-107); Glomerular Filtration Rate 86.4 mL/min (90-130); Glucose 298 mg/dL (65-115); Magnesium 1.5 mg/dL (1.7-2.3); Osmolality Calculated 286 mOsm/kg (285-295); Sodium 132 mmol/L (136-145)
[2022-07-27 09:16] LABS: Anion Gap 18.6 (5-19); Potassium 4.6 mmol/L (3.5-5.1)
== END 2022-08-24 23:59 | disposition home or self-care (01) ==
LOC: SOT 06:00
PROVIDERS: PCP Family Medicine; Visit Provider Specialist
DX: M65.331 Trigger finger, right middle finger (principal); M65.332 Trigger finger, left middle finger
CPT/HCPCS: 36415; 80048; 83735; 97018; 97035; 97110; 97140

== ENCOUNTER → 2022-08-13 07:48 | Outpatient (BNVA) | payer MEDICARE, SELFPAY | PROVIDERS: PCP Family Medicine; Visit Provider Student in an Organized Health Care Education/Training Program | DX: M65.332 Trigger finger, left middle finger (principal); M65.352 Trigger finger, left little finger; M65.331 Trigger finger, right middle finger | CPT/HCPCS: 99213 ==

== ENCOUNTER 2022-08-25 06:00 | Outpatient (RCR) | payer MEDICARE, SELFPAY | END 2022-09-23 23:59 | disposition home or self-care (01) | LOC: SOT 06:00 | PROVIDERS: PCP Family Medicine; Visit Provider Specialist | DX: M65.331 Trigger finger, right middle finger (principal); M65.332 Trigger finger, left middle finger | CPT/HCPCS: 97035; 97110; 97140 ==

== ENCOUNTER → 2022-09-09 15:13 | Outpatient (BNVA) | payer MEDICARE, SELFPAY | PROVIDERS: PCP Family Medicine; Visit Provider Specialist | DX: M25.642 Stiffness of left hand, not elsewhere classified (principal); M65.332 Trigger finger, left middle finger; M65.331 Trigger finger, right middle finger; M65.30 Trigger finger, unspecified finger | CPT/HCPCS: 73130; 99213 ==

== ENCOUNTER 2022-09-30 06:00 | Outpatient (RCR) | payer MEDICARE, SELFPAY | END 2022-10-24 23:59 | disposition home or self-care (01) | LOC: SOT 06:00 | PROVIDERS: PCP Family Medicine; Visit Provider Specialist | DX: M65.332 Trigger finger, left middle finger (principal) | CPT/HCPCS: 97018; 97035; 97110; 97140; 97166 ==

== ENCOUNTER → 2022-10-15 12:12 | Outpatient (BNVA) | payer MEDICARE, SELFPAY | PROVIDERS: PCP Family Medicine; Visit Provider Internal Medicine | DX: R00.2 Palpitations (principal); I10 Essential (primary) hypertension; E11.59 Type 2 diabetes mellitus with other circulatory complications; Z79.84 Long term (current) use of oral hypoglycemic drugs; I25.10 Atherosclerotic heart disease of native coronary artery without angina pectoris; I25.5 Ischemic cardiomyopathy; Z95.810 Presence of automatic (implantable) cardiac defibrillator; E78.1 Pure hyperglyceridemia; I47.20 Ventricular tachycardia, unspecified; Z95.1 Presence of aortocoronary bypass graft | CPT/HCPCS: 99213 ==

== ENCOUNTER 2022-10-25 06:00 | Outpatient (RCR) | payer MEDICARE, SELFPAY | END 2022-11-12 23:59 | disposition home or self-care (01) | LOC: SOT 06:00 | PROVIDERS: PCP Family Medicine; Visit Provider Specialist | DX: M65.332 Trigger finger, left middle finger (principal) | CPT/HCPCS: 97018; 97035; 97110; 97140 ==

== ENCOUNTER → 2022-11-16 08:17 | Outpatient (BNVA) | payer MEDICARE, SELFPAY | PROVIDERS: PCP Family Medicine; Visit Provider Specialist | DX: M79.641 Pain in right hand (principal); M79.642 Pain in left hand | CPT/HCPCS: 99213 ==

== ENCOUNTER → 2022-12-08 15:47 | Outpatient (BNVA) | payer MEDICARE, SELFPAY | PROVIDERS: PCP Family Medicine; Visit Provider Podiatrist Foot & Ankle Surgery | DX: E11.59 Type 2 diabetes mellitus with other circulatory complications (principal); I25.10 Atherosclerotic heart disease of native coronary artery without angina pectoris; L60.8 Other nail disorders; Z79.84 Long term (current) use of oral hypoglycemic drugs | CPT/HCPCS: 99214 ==

== ENCOUNTER → 2022-12-14 15:27 | Outpatient (BNVA) | payer MEDICARE, SELFPAY | PROVIDERS: PCP Family Medicine; Visit Provider Internal Medicine | DX: R00.2 Palpitations (principal); I10 Essential (primary) hypertension; E11.59 Type 2 diabetes mellitus with other circulatory complications; Z79.84 Long term (current) use of oral hypoglycemic drugs; I25.10 Atherosclerotic heart disease of native coronary artery without angina pectoris; I25.5 Ischemic cardiomyopathy; Z95.810 Presence of automatic (implantable) cardiac defibrillator; E78.1 Pure hyperglyceridemia; Z95.1 Presence of aortocoronary bypass graft | CPT/HCPCS: 99214 ==

== ENCOUNTER → 2022-12-23 15:36 | Outpatient (BNVA) | payer MEDICARE, SELFPAY | PROVIDERS: PCP Family Medicine; Visit Provider Podiatrist Foot & Ankle Surgery | DX: E11.59 Type 2 diabetes mellitus with other circulatory complications (principal); I25.10 Atherosclerotic heart disease of native coronary artery without angina pectoris; L60.8 Other nail disorders; Z79.84 Long term (current) use of oral hypoglycemic drugs | CPT/HCPCS: 99214 ==

== ENCOUNTER → 2023-02-15 14:46 | Outpatient (BNVA) | payer MEDICARE, SELFPAY | PROVIDERS: PCP Family Medicine; Visit Provider Student in an Organized Health Care Education/Training Program | DX: M77.01 Medial epicondylitis, right elbow (principal) | CPT/HCPCS: 73070; 99213 ==

== ENCOUNTER → 2023-02-24 12:53 | Outpatient (BNVA) | payer MEDICARE, SELFPAY | PROVIDERS: PCP Family Medicine; Visit Provider Podiatrist Foot & Ankle Surgery | DX: E11.42 Type 2 diabetes mellitus with diabetic polyneuropathy (principal); E11.59 Type 2 diabetes mellitus with other circulatory complications; I25.10 Atherosclerotic heart disease of native coronary artery without angina pectoris; L60.3 Nail dystrophy; I73.9 Peripheral vascular disease, unspecified; Z79.01 Long term (current) use of anticoagulants; Z79.84 Long term (current) use of oral hypoglycemic drugs | CPT/HCPCS: 11721 ==

== ENCOUNTER 2023-03-23 11:39 | Outpatient (RCR) | payer MEDICARE, SELFPAY | END 2023-03-24 23:59 | disposition home or self-care (01) | LOC: SPT 11:39 | PROVIDERS: Visit Provider Family Medicine | DX: M25.551 Pain in right hip (principal); M25.552 Pain in left hip | CPT/HCPCS: 97161 ==

== ENCOUNTER 2023-03-23 11:44 | Outpatient (RCR) | payer MEDICARE, SELFPAY | END 2023-03-24 23:59 | disposition home or self-care (01) | LOC: SOT 11:44 | PROVIDERS: Visit Provider Student in an Organized Health Care Education/Training Program | DX: M77.01 Medial epicondylitis, right elbow (principal) | CPT/HCPCS: 97033; 97110; 97124; 97166; 97530 ==

== ENCOUNTER 2023-03-25 11:35 | Outpatient (RCR) | payer MEDICARE, SELFPAY | END 2023-04-23 23:59 | disposition home or self-care (01) | LOC: SPT 11:35 | PROVIDERS: Visit Provider Family Medicine | DX: M25.551 Pain in right hip (principal); M25.552 Pain in left hip | CPT/HCPCS: 97110 ==

== ENCOUNTER 2023-03-25 11:36 | Outpatient (RCR) | payer MEDICARE, SELFPAY | END 2023-04-23 23:59 | disposition home or self-care (01) | LOC: SOT 11:36 | PROVIDERS: Visit Provider Student in an Organized Health Care Education/Training Program | DX: M77.01 Medial epicondylitis, right elbow (principal) | CPT/HCPCS: 97035; 97110; 97140; 97530 ==

== ENCOUNTER → 2023-04-16 10:59 | Outpatient (BNVA) | payer MEDICARE, SELFPAY | PROVIDERS: Visit Provider Internal Medicine | DX: R00.2 Palpitations (principal); I10 Essential (primary) hypertension; E11.59 Type 2 diabetes mellitus with other circulatory complications; I25.10 Atherosclerotic heart disease of native coronary artery without angina pectoris; I25.5 Ischemic cardiomyopathy; Z95.810 Presence of automatic (implantable) cardiac defibrillator; E78.1 Pure hyperglyceridemia; Z79.84 Long term (current) use of oral hypoglycemic drugs | CPT/HCPCS: 99214 ==

== ENCOUNTER 2023-04-24 01:00 | Outpatient (RCR) | payer MEDICARE, SELFPAY | END 2023-05-24 23:59 | disposition home or self-care (01) | LOC: SOT 01:00 | PROVIDERS: Visit Provider Student in an Organized Health Care Education/Training Program | DX: M77.01 Medial epicondylitis, right elbow (principal) | CPT/HCPCS: 97035; 97110; 97530 ==

== ENCOUNTER 2023-04-24 06:00 | Outpatient (RCR) | payer MEDICARE, SELFPAY | END 2023-05-24 23:59 | disposition home or self-care (01) | LOC: SPT 06:00 | PROVIDERS: Visit Provider Family Medicine | DX: M25.551 Pain in right hip (principal); M25.552 Pain in left hip | CPT/HCPCS: 97110 ==

== ENCOUNTER → 2023-04-28 13:28 | Outpatient (BNVA) | payer MEDICARE, SELFPAY | PROVIDERS: Visit Provider Podiatrist Foot & Ankle Surgery | DX: I73.9 Peripheral vascular disease, unspecified (principal); L60.8 Other nail disorders; E11.59 Type 2 diabetes mellitus with other circulatory complications; L60.3 Nail dystrophy; I25.10 Atherosclerotic heart disease of native coronary artery without angina pectoris; Z79.01 Long term (current) use of anticoagulants; E11.42 Type 2 diabetes mellitus with diabetic polyneuropathy; Z79.84 Long term (current) use of oral hypoglycemic drugs | CPT/HCPCS: 11721 ==

== ENCOUNTER 2023-05-25 06:00 | Outpatient (RCR) | payer MEDICARE, SELFPAY | END 2023-06-24 23:59 | disposition home or self-care (01) | LOC: SPT 06:00 | PROVIDERS: Visit Provider Family Medicine | DX: M25.551 Pain in right hip (principal); M25.552 Pain in left hip | CPT/HCPCS: 97110 ==

== ENCOUNTER → 2023-06-14 15:25 | Outpatient (BNVA) | payer MEDICARE, SELFPAY | PROVIDERS: PCP Family Medicine; Visit Provider Internal Medicine | DX: R00.2 Palpitations (principal); I10 Essential (primary) hypertension; E11.59 Type 2 diabetes mellitus with other circulatory complications; Z79.84 Long term (current) use of oral hypoglycemic drugs; I25.10 Atherosclerotic heart disease of native coronary artery without angina pectoris; I25.5 Ischemic cardiomyopathy; Z95.810 Presence of automatic (implantable) cardiac defibrillator; E78.1 Pure hyperglyceridemia | CPT/HCPCS: 99214 ==

== ENCOUNTER 2023-06-25 06:00 | Outpatient (RCR) | payer MEDICARE, SELFPAY | END 2023-07-24 23:59 | disposition home or self-care (01) | LOC: SPT 06:00 | PROVIDERS: PCP Family Medicine; Visit Provider Family Medicine | DX: M25.551 Pain in right hip (principal); M25.552 Pain in left hip | CPT/HCPCS: 97110 ==

== ENCOUNTER → 2023-06-30 15:02 | Outpatient (BNVA) | payer MEDICARE, SELFPAY | PROVIDERS: PCP Family Medicine; Visit Provider Podiatrist Foot & Ankle Surgery | DX: L60.8 Other nail disorders (principal); E11.59 Type 2 diabetes mellitus with other circulatory complications; I25.10 Atherosclerotic heart disease of native coronary artery without angina pectoris; L60.3 Nail dystrophy; I73.9 Peripheral vascular disease, unspecified; Z79.01 Long term (current) use of anticoagulants; E11.42 Type 2 diabetes mellitus with diabetic polyneuropathy; Z79.84 Long term (current) use of oral hypoglycemic drugs | CPT/HCPCS: 11721 ==

== ENCOUNTER → 2023-08-11 15:57 | Outpatient (BNVA) | payer MEDICARE, SELFPAY | PROVIDERS: PCP Family Medicine; Visit Provider Internal Medicine | DX: Z45.02 Encounter for adjustment and management of automatic implantable cardiac defibrillator (principal) | CPT/HCPCS: 93296 ==

== ENCOUNTER 2023-08-25 06:00 | Outpatient (RCR) | payer MEDICARE, SELFPAY | END 2023-09-23 23:59 | disposition home or self-care (01) | LOC: SPT 06:00 | PROVIDERS: PCP Family Medicine; Visit Provider Family Medicine | DX: M25.551 Pain in right hip (principal); M25.552 Pain in left hip | CPT/HCPCS: 97110 ==

== ENCOUNTER 2023-09-24 06:00 | Outpatient (RCR) | payer MEDICARE, SELFPAY | END 2023-10-24 23:59 | disposition home or self-care (01) | LOC: SPT 06:00 | PROVIDERS: PCP Family Medicine; Visit Provider Family Medicine | DX: M25.551 Pain in right hip (principal); M25.552 Pain in left hip | CPT/HCPCS: 97110 ==

== ENCOUNTER → 2023-11-10 10:16 | Outpatient (BNVA) | payer MEDICARE, SELFPAY | PROVIDERS: PCP Family Medicine; Visit Provider Internal Medicine | DX: E11.42 Type 2 diabetes mellitus with diabetic polyneuropathy (principal); E78.1 Pure hyperglyceridemia; E11.59 Type 2 diabetes mellitus with other circulatory complications; I25.10 Atherosclerotic heart disease of native coronary artery without angina pectoris; E11.40 Type 2 diabetes mellitus with diabetic neuropathy, unspecified; E11.319 Type 2 diabetes mellitus with unspecified diabetic retinopathy without macular edema; Z79.84 Long term (current) use of oral hypoglycemic drugs; Z95.810 Presence of automatic (implantable) cardiac defibrillator | CPT/HCPCS: 36415; 80053; 80061; 82044; 82607; 83036; 83721; 93296; 99214 ==

== ENCOUNTER → 2023-12-20 15:35 | Outpatient (BNVA) | payer MEDICARE, SELFPAY | PROVIDERS: PCP Family Medicine; Visit Provider Internal Medicine | DX: R00.2 Palpitations (principal); I10 Essential (primary) hypertension; E11.59 Type 2 diabetes mellitus with other circulatory complications; I25.10 Atherosclerotic heart disease of native coronary artery without angina pectoris; I25.5 Ischemic cardiomyopathy; Z95.810 Presence of automatic (implantable) cardiac defibrillator; E78.1 Pure hyperglyceridemia; Z79.84 Long term (current) use of oral hypoglycemic drugs | CPT/HCPCS: 99214 ==

== ENCOUNTER → 2024-02-10 08:47 | Outpatient (BNVA) | payer MEDICARE, SELFPAY | PROVIDERS: PCP Family Medicine; Visit Provider Internal Medicine | DX: E11.42 Type 2 diabetes mellitus with diabetic polyneuropathy; E78.1 Pure hyperglyceridemia; I10 Essential (primary) hypertension; E11.59 Type 2 diabetes mellitus with other circulatory complications; I25.10 Atherosclerotic heart disease of native coronary artery without angina pectoris; E11.319 Type 2 diabetes mellitus with unspecified diabetic retinopathy without macular edema; Z79.84 Long term (current) use of oral hypoglycemic drugs | CPT/HCPCS: 36415; 80053; 80061; 82044; 83036; 83721; 99214 ==

== ENCOUNTER → 2024-05-19 10:01 | Outpatient (BNVA) | payer MEDICARE, SELFPAY | PROVIDERS: PCP Family Medicine; Visit Provider Internal Medicine | DX: E11.9 Type 2 diabetes mellitus without complications; E78.1 Pure hyperglyceridemia; I10 Essential (primary) hypertension; E11.42 Type 2 diabetes mellitus with diabetic polyneuropathy; E11.59 Type 2 diabetes mellitus with other circulatory complications; I25.10 Atherosclerotic heart disease of native coronary artery without angina pectoris; E11.319 Type 2 diabetes mellitus with unspecified diabetic retinopathy without macular edema; Z79.84 Long term (current) use of oral hypoglycemic drugs | CPT/HCPCS: 36415; 80053; 80061; 82044; 83036; 83721; 99214 ==

== ENCOUNTER → 2024-06-20 14:48 | Outpatient (BNVA) | payer MEDICARE, SELFPAY | PROVIDERS: PCP Family Medicine; Visit Provider Internal Medicine | DX: R00.2 Palpitations (principal); R06.02 Shortness of breath; I10 Essential (primary) hypertension; E11.59 Type 2 diabetes mellitus with other circulatory complications; I25.10 Atherosclerotic heart disease of native coronary artery without angina pectoris; I25.5 Ischemic cardiomyopathy; Z95.810 Presence of automatic (implantable) cardiac defibrillator; E78.1 Pure hyperglyceridemia; F17.210 Nicotine dependence, cigarettes, uncomplicated; Z79.84 Long term (current) use of oral hypoglycemic drugs | CPT/HCPCS: 99214 ==

== ENCOUNTER 2024-06-29 11:55 | Outpatient (CLI) | payer MEDICARE, SELFPAY ==
--- NOTE | 2024-06-29 12:22 | CT_ITS ---
WS: [id number] CTA RIGHT shoulder HISTORY: RT SHOULDER PAIN TECHNIQUE: Contiguous axial images are obtained through the RIGHT shoulder during arterial injection of intravenous contrast. Images are reconstructed to evaluate the RIGHT upper extremity arteries. MIP imaging also reviewed. All CT scans at [facility] use at least one of these dose optimizatio n techniques: automated exposure control; mA and/or kV adjustment per patient size (includes targeted exams where dose is matched to clinical indication); or iterative reconstruction. CONTRAST: Omnipaque 350; 100 mL IV. DLP: 580.43 mGy.cm COMPARISON: None available. This examination was ordered as a CT angiogram of the RIGHT upper extremity. There is good arterial enhancement of the RIGHT upper extremity arteries. No stenosis or thrombus is identified. Imaging is in included to the elbow. There is no enhancing mass. Mild AC joint arthropathy. No muscle atrophy identified by CT around the shoulder. No fractures or di slocation. Cholelithiasis. No evidence for acute cholecystitis. No adrenal mass. Patient is status post median sternotomy. LEFT subclavian pacer [place]ibrill[place]. [place] [id number] IMPRESSION: 1. CT angiogram RIGHT shoulder is negative. No arterial occlusion. 2. Mild AC joint arthritis. 3. Cholelithiasis without acute cholecystitis.
[2024-06-29] MEDS: iohexol 350 mg/mL 500 mL Btl (per mL) IV (13:18)
== END 2024-06-29 11:56 | disposition home or self-care (01) ==
PROVIDERS: PCP Family Medicine; Visit Provider Family Medicine
DX: M25.511 Pain in right shoulder (principal); K80.20 Calculus of gallbladder without cholecystitis without obstruction; Z98.890 Other specified postprocedural states; Z95.810 Presence of automatic (implantable) cardiac defibrillator
CPT/HCPCS: 73206

== ENCOUNTER 2024-07-21 09:15 | Outpatient (CLI) | payer MEDICARE, SELFPAY ==
--- NOTE | 2024-07-21 09:15 | USCV_ITS ---
Garett Cy Age: 59 Gender: M : 1965 Exam Date: 07/21/2024 09:33 Ordering Phys: Jose Cobb M.D ([email or web address]) Technologist: SUPRIYA [place] [facility] [place]: SOB BP: 108 / 70 HR: 70 Rhythm: Sinus Technical Quality: Adequate MEASUREMENTS (Male / Female) Normal Values 2D ECHO LV Diastolic Diameter PLAX 6.2 cm 4.2 - 5.9 / 3.9 - 5.3 cm IVS Diastolic Thickness 1.3 cm 0.6 - 1.0 / 0.6 - 0.9 cm IVS Systolic Thickness 2.0 cm LVPW Diastolic Thickness 1.4 cm 0.6 - 1.0 / 0.6 - 0.9 cm LVPW Systolic Thickness 2.9 cm LVOT Diameter 2.0 cm LV Ejection Fraction 2D Teich 66.4 % LV Ejection Fraction MOD 4C 53.9 % LV Ejection Fraction MOD 2C 52.4 % LV Ejection Fraction 2C AL 52.8 % LA Diameter 4.0 cm RA Systolic Volume 4C AL 36.8 ml RA Systolic Volume 4C MOD 35.6 ml LA Sys Volume AL 52.6 cm cubed LA Sys Volume Index AL 21.7 cm cubed/m squared Aorta at Sinotubular Diameter 2.5 cm IVC Diameter 2.1 cm M-MODE LA Ao Ratio MM 1.3 AV Cusp Separation MM 2.4 cm DOPPLER AV Peak Velocity 121.0 cm/s LVOT Peak Velocity 87.0 cm/s AV Area Cont Eq vti 2.1 cm squared AV Area Cont Eq pk 2.2 cm squared MV Peak Velocity 106.0 cm/s MV Area PHT 4.0 cm squared Mitral E to A Ratio 1.1 TR Peak Velocity 127.0 cm/s TR Peak Gradient 6.5 mmHg TR Mean Velocity 107.0 cm/s TR Mean Gradient 4.8 mmHg TR Velocity Time Integral 32.2 cm TV Peak E Velocity 71.0 cm/s Right Atrial Pressure 3.0 mmHg Pulmonary Artery Systolic Pressu 9.5 mmHg PV Peak Velocity 122.0 cm/s RV Ejection Time 0.3 s FINDINGS Left Ventricle Left ventricle is normal in size. LV systolic is borderline normal with EF of 50 to 55%. Mild hypokinesis of apical wall. Right Ventricle Normal in size and function Right Atrium Normal in size Left Atrium Normal in size Mitral Valve Structurally normal mitral valve. Mild mitral regurgitation Aortic Valve Structurally normal aortic valve. No significant stenosis or regurgitation. Tricuspid Valve Mild tricuspid regurgitation. Insufficient TR jet to calculate RVSP Pulmonic Valve Not well visualized Pericardium Normal Aorta Normal in size IVC Appears to be normal CONCLUSIONS LV systolic function is normal with EF of 50-55% Mild mitral regurgitation Mild tricuspid regurgitation. Compared to prior echocardiogram from 2020, no significant changes are seen. Jose Cobb MD (Electronically Signed) Final Date: 03 August 2024 08:53 S
== END 2024-07-21 09:16 | disposition home or self-care (01) ==
LOC: RAD 08-07 16:43
PROVIDERS: PCP Family Medicine; Visit Provider Internal Medicine
DX: R06.02 Shortness of breath (principal)
CPT/HCPCS: 93306

== ENCOUNTER 2024-07-28 10:50 | Outpatient (CLI) | payer MEDICARE, SELFPAY ==
--- NOTE | 2024-07-28 10:54 | IR_ITS ---
WS: [id number] SHOULDER ARTHROGRAM RIGHT Fluoroscopic guided right shoulder arthrogram CLINICAL INFORMATION: RIGHT SHOULDER PAIN PROCEDURE: The procedure including risks, benefits and complications were discussed with the patient, who agreed to proceed. Using sterile technique, the patient was prepped and draped in the usual ster ile fashion. After 1% lidocaine injection using fluoroscopic guidance, a 22-gauge spinal needle was a dvanced into the glenohumeral joint. Approximately 13 ml of a solution containing 15 ml Omnipaque 240 , 5 ml 1% lidocaine was administered. No immediate complications. FLUOROSCOPY TIME: 1min [id number] # of spot films: 7 IR/IR arthrogram shoulderRT [id number] IMPRESSION: Uncomplicated fluoroscopic-guided right shoulder arthrogram. CT to follow
--- NOTE | 2024-07-28 10:56 | CT_ITS ---
WS: [id number] CT shoulder RIGHT arthrogram INDICATION: RIGHT shoulder pain TECHNIQUE: CT RIGHT shoulder arthrogram with coronal and sagittal reformatted images. FINDINGS: Moderate to advanced arthritis AC joint with mild downsloping acromion. Slight impingement on the distal supraspinatus. Small high-grade full-thickness tear in the anterior distal supraspinatu s at the insertion with contrast extending into the subacromial space. Hypertrophic spurring in the h umerus at this location greater tuberosity. Infraspinatus is intact. Normal teres minor. Subscapularis tendon and transverse humeral ligament sadiq ear intact. Biceps tendon appears intact within the bicipital groove. Intra-articular biceps tendon a ppears intact. Biceps labral anchor appears intact. Moderate degenerative narrowing of the glenohumeral articulation. Normal coracoid. Partially visualiz ed RIGHT lung is well aerated. No other acute findings CT/[place] w con [id number] IMPRESSION: 1. Moderate to advanced arthritis of the AC joint with mild narrowing of the s ubacromial space. Impingement distal supraspinatus. 2. Small full-thickness tear at the supraspinatus insertion distally at the gr eater tuberosity with dissecting contrast into the subacromial space. 3. Rotator cuff is otherwise intact. 4. Biceps tendon intact in the bicipital groove. 5. Intra-articular biceps tendon appears intact. 6. Moderate degenerative narrowing at the glenohumeral articulation.
[2024-07-28] MEDS: iohexol 240 mg/mL 50 mL Btl 20 ML INTRA-ARTI (12:04)
== END 2024-07-28 10:51 | disposition home or self-care (01) ==
PROVIDERS: PCP Family Medicine; Visit Provider Family Medicine
DX: M19.011 Primary osteoarthritis, right shoulder (principal); S46.011A Strain of muscle(s) and tendon(s) of the rotator cuff of right shoulder, initial encounter; X58.XXXA Exposure to other specified factors, initial encounter
CPT/HCPCS: 23350; 73201; 77002; Q9966

== ENCOUNTER → 2024-08-16 10:21 | Outpatient (BNVA) | payer MEDICARE, SELFPAY | PROVIDERS: PCP Family Medicine; Visit Provider Internal Medicine Cardiovascular Disease | DX: Z45.02 Encounter for adjustment and management of automatic implantable cardiac defibrillator (principal) | CPT/HCPCS: 93296 ==

== ENCOUNTER 2024-09-07 10:23 | Outpatient (CLI) | payer MEDICARE, SELFPAY ==
[2024-09-07 10:49] LABS: Basophils % 0.6 %; Eosinophils # 0.2 10^3/uL (0.0-0.8); Eosinophils % 2.7 %; Hematocrit 45.1 % (37-53); Lymphocytes # 1.6 10^3/uL (0.8-4.8); Lymphocytes % 22.9 %; Mean Corpuscular HGB Conc 34.8 g/dL (30-55); Mean Corpuscular Hemoglobin 29.2 pg (27-33); Mean Corpuscular Volume 83.8 fl (82-101); Monocytes # 0.9 10^3/uL (0.2-0.9); Monocytes % 13.1 %; Neutrophils # 4.16 10^3/uL (1.8-7.7); Neutrophils % 59.8 %; Nucleated Red Blood Cells % 0 %; Platelet Count 131 10^3/cmm (157-399); Red Blood Count 5.38 10^6/uL (3.85-5.65); White Blood Count 6.95 10^3/uL (3.29-11.43)
[2024-09-07 11:02] LABS: Estmated Average Glucose 203; Hemoglobin A1C 8.7 % (4.0-6.0)
[2024-09-07 11:05] LABS: Alanine Aminotransferase 19 U/L (0-41); Albumin Level 4.1 g/dL (3.5-5.2); Alkaline Phosphatase 76 U/L (40-130); Anion Gap 15.4 (5-19); Aspartate Amino Transferase 17 U/L (0-40); Blood Urea Nitrogen 17 mg/dL (8-23); Calcium 8.1 mg/dL (8.5-10.5); Carbon Dioxide 23 mmol/L (22-29); Chloride 101 mmol/L (98-107); Cholesterol 120 mg/dL (0-200); Globulin 2.4 g/dL (1.3-4.6); Glomerular Filtration Rate 114.6 mL/min (90-130); Glucose 275 mg/dL (65-115); HDL Cholesterol 30 mg/dL (60-100); Magnesium 1.4 mg/dL (1.7-2.3); Osmolality Calculated 291 mOsm/kg (285-295); Potassium 4.4 mmol/L (3.5-5.1); Sodium 135 mmol/L (136-145); Total Bilirubin 0.5 mg/dL (0.15-1.2); Total Protein 6.5 g/dL (6.6-8.7); Triglycerides 592 mg/dL (0-150)
[2024-09-07 11:35] LABS: LDL Cholesterol Direct 17 mg/dL (0-100)
== END 2024-09-07 10:24 | disposition home or self-care (01) ==
LOC: LAB 10:26
PROVIDERS: PCP Family Medicine
DX: E78.5 Hyperlipidemia, unspecified (principal); E11.9 Type 2 diabetes mellitus without complications; I10 Essential (primary) hypertension; I47.29 Other ventricular tachycardia
CPT/HCPCS: 80053; 80061; 83036; 83721; 83735; 85025

== ENCOUNTER → 2024-09-19 09:51 | Outpatient (BNVA) | payer MEDICARE, SELFPAY | PROVIDERS: PCP Family Medicine; Visit Provider Internal Medicine | DX: E11.42 Type 2 diabetes mellitus with diabetic polyneuropathy (principal); E78.1 Pure hyperglyceridemia; E11.59 Type 2 diabetes mellitus with other circulatory complications; I25.10 Atherosclerotic heart disease of native coronary artery without angina pectoris; E11.319 Type 2 diabetes mellitus with unspecified diabetic retinopathy without macular edema; E11.65 Type 2 diabetes mellitus with hyperglycemia; I10 Essential (primary) hypertension; Z79.84 Long term (current) use of oral hypoglycemic drugs | CPT/HCPCS: 99214 ==

== ENCOUNTER → 2025-02-01 14:55 | Outpatient (BNVA) | payer MEDICARE, SELFPAY | PROVIDERS: PCP Family Medicine; Visit Provider Internal Medicine Cardiovascular Disease | DX: I25.10 Atherosclerotic heart disease of native coronary artery without angina pectoris (principal); I47.20 Ventricular tachycardia, unspecified; E78.1 Pure hyperglyceridemia; I08.1 Rheumatic disorders of both mitral and tricuspid valves; Z95.810 Presence of automatic (implantable) cardiac defibrillator; F17.220 Nicotine dependence, chewing tobacco, uncomplicated; Z79.84 Long term (current) use of oral hypoglycemic drugs; E11.9 Type 2 diabetes mellitus without complications; I10 Essential (primary) hypertension | CPT/HCPCS: 99214 ==

== ENCOUNTER 2025-02-05 11:45 | Outpatient (CLI) | payer MEDICARE, SELFPAY ==
[2025-02-05 12:46] LABS: Basophils # 0.1 10^3/uL (0.0-0.1); Basophils % 0.9 %; Eosinophils # 0.2 10^3/uL (0.0-0.8); Eosinophils % 2.3 %; Hematocrit 46.6 % (37-53); Lymphocytes # 1.6 10^3/uL (0.8-4.8); Mean Corpuscular HGB Conc 34.3 g/dL (30-55); Mean Corpuscular Hemoglobin 29.1 pg (27-33); Mean Corpuscular Volume 84.9 fl (82-101); Mean Platelet Volume 11.5 fL (7.4-10.4); Monocytes % 12.7 %; Neutrophils # 4.74 10^3/uL (1.8-7.7); Neutrophils % 61.3 %; Nucleated Red Blood Cells % 0 %; Platelet Count 142 10^3/cmm (157-399); Red Blood Count 5.49 10^6/uL (3.85-5.65); Red Cell Distribution Width 13.5 % (12.1-15.1); White Blood Count 7.73 10^3/uL (3.29-11.43)
[2025-02-05 13:03] LABS: Alanine Aminotransferase 17 U/L (0-41); Albumin Level 4.1 g/dL (3.5-5.2); Alkaline Phosphatase 61 U/L (40-130); Aspartate Amino Transferase 15 U/L (0-40); Blood Urea Nitrogen 27 mg/dL (8-23); Calcium 9.1 mg/dL (8.5-10.5); Carbon Dioxide 22 mmol/L (22-29); Chloride 98 mmol/L (98-107); Chol HDL Ratio 4.09 mg/dL (1.0-5.00); Cholesterol 139 mg/dL (0-200); Globulin 2.7 g/dL (1.3-4.6); Glomerular Filtration Rate 98.3 mL/min (90-130); Glucose 284 mg/dL (65-115); HDL Cholesterol 34 mg/dL (60-100); Osmolality Calculated 295 mOsm/kg (285-295); Sodium 135 mmol/L (136-145); Total Bilirubin 0.7 mg/dL (0.15-1.2); Total Protein 6.8 g/dL (6.6-8.7); Triglycerides 665 mg/dL (0-150)
[2025-02-05 13:04] LABS: Anion Gap 19.4 (5-19); Potassium 4.4 mmol/L (3.5-5.1)
[2025-02-05 13:18] LABS: LDL Cholesterol Direct 21 mg/dL (0-100)
== END 2025-02-05 11:46 | disposition home or self-care (01) ==
PROVIDERS: PCP Family Medicine; Visit Provider Internal Medicine Cardiovascular Disease
DX: I10 Essential (primary) hypertension (principal); E11.9 Type 2 diabetes mellitus without complications; E78.1 Pure hyperglyceridemia; I25.810 Atherosclerosis of coronary artery bypass graft(s) without angina pectoris; I47.20 Ventricular tachycardia, unspecified
CPT/HCPCS: 36415; 80053; 80061; 83721; 85025

== ENCOUNTER → 2025-02-14 10:19 | Outpatient (BNVA) | payer MEDICARE, SELFPAY | PROVIDERS: PCP Family Medicine; Visit Provider Internal Medicine | DX: Z45.02 Encounter for adjustment and management of automatic implantable cardiac defibrillator (principal) | CPT/HCPCS: 93296 ==

== ENCOUNTER 2025-03-09 12:37 | Outpatient (CLI) | payer MEDICARE, SELFPAY ==
--- NOTE | 2025-03-09 12:45 | USCV_ITS ---
Garett Cy Age: 60 Gender: M : 1965 Exam Date: 03/09/2025 12:55 Ordering Phys: Anton Ron MD ([email or web address]) Technologist: DREW [place] [facility] [place]: CP, SoB. Prior quad bypass BP: 122 / 72 HR: 68 Rhythm: Sinus Technical Quality: Adequate MEASUREMENTS (Male / Female) Normal Values 2D ECHO LV Diastolic Diameter PLAX 6.0 cm 4.2 - 5.9 / 3.9 - 5.3 cm IVS Diastolic Thickness 1.0 cm 0.6 - 1.0 / 0.6 - 0.9 cm IVS Systolic Thickness 2.0 cm LVPW Diastolic Thickness 1.0 cm 0.6 - 1.0 / 0.6 - 0.9 cm LVPW Systolic Thickness 1.6 cm LVOT Diameter 2.1 cm LV Ejection Fraction 2D Teich 62.8 % LV Ejection Fraction MOD 4C 57.2 % LV Ejection Fraction MOD 2C 57.3 % LV Ejection Fraction 2C AL 55.5 % LA Diameter 5.0 cm RA Systolic Volume 4C AL 63.3 ml RA Systolic Volume 4C MOD 61.9 ml LA Sys Volume AL 72.3 cm cubed LA Sys Volume Index AL 29.8 cm cubed/m squared Aorta at Sinotubular Diameter 3.1 cm IVC Diameter 2.4 cm M-MODE LA Ao Ratio MM 1.8 AV Cusp Separation MM 1.8 cm DOPPLER AV Peak Velocity 119.0 cm/s LVOT Peak Velocity 90.0 cm/s AV Area Cont Eq vti 3.5 cm squared AV Area Cont Eq pk 2.7 cm squared MV Peak Velocity 80.0 cm/s MV Area PHT 4.9 cm squared Mitral E to A Ratio 1.1 TR Peak Velocity 72.0 cm/s TR Peak Gradient 2.1 mmHg TV Peak E Velocity 85.0 cm/s PV Peak Velocity 114.0 cm/s FINDINGS Left Ventricle Normal left ventricular size, systolic function and wall thickness, with no regional wall motion abnormalities. Left ventricular ejection fraction is estimated at 50-55 %. Normal diastolic function. Right Ventricle The right ventricle is normal in size and function. Right Atrium The right atrium is normal in size. Left Atrium The left atrium is normal in size. Mitral Valve Structurally normal mitral valve without significant stenosis or prolapse. There is no mitral regurgitation. Aortic Valve Structurally normal aortic valve without significant sclerosis or stenosis. There is no aortic regurgitation. Tricuspid Valve Structurally normal tricuspid valve without significant stenosis or regurgitation. Pulmonary artery systolic pressure is normal. Pulmonic Valve Structurally normal pulmonic valve without significant stenosis. There is no pulmonic regurgitation. Pericardium Normal pericardium without effusion. Aorta Normal ascending aorta dimension. IVC The inferior vena cava appears normal. CONCLUSIONS Normal left ventricular size, systolic function and wall thickness, with no regional wall motion abnormalities. Left ventricular ejection fraction is estimated at 50-55 %. Normal diastolic function. There is no pericardial effusion. No significant valve abnormalities. Right atrial pressure is around 5 mm of mercury. Anton Ron MD (Electronically Signed) Final Date: 17 Mar 2025 19:46 S
== END 2025-03-09 12:38 | disposition home or self-care (01) ==
PROVIDERS: PCP Family Medicine; Visit Provider Internal Medicine Cardiovascular Disease
DX: R07.9 Chest pain, unspecified (principal); R06.02 Shortness of breath; R93.1 Abnormal findings on diagnostic imaging of heart and coronary circulation
CPT/HCPCS: 36415; 93306; 96374

== ENCOUNTER 2025-03-16 09:44 | Outpatient (CLI) | payer MEDICARE, SELFPAY ==
--- NOTE | 2025-03-16 | ECG_ITS ---
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 The perfusion scan will be documented separately. DATA: Baseline heart rate was 74 beats per minute. Baseline blood pressure was 134/79 millimeters of mercury. Target heart rate was 158. Maximum heart rate achieved was 76. which was 48 % of the predicted target heart rate. Maximum blood pressure was 134/82 millimeters of mercury. The reason for ending the test was completion of the protocol. The patient did not experience any symptoms. ELECTROCARDIOGRAM: BASELINE: Sinus rhythm. Left axis. Otherwise, no ST-T changes suggestive of ischemia noted. No arrhythmia noted. EXERCISE: After Lexiscan injection, no ST-T changes suggestive of ischemic noted. No arrhythmia noted. CONCLUSION: Please note due to baseline abnormality of the EKG specificity and sensitivity of the EKG portion of LexiScan MIBI stress test will be low 1. EKG not suggestive of ischemia 2. Lexiscan injection unremarkable. 3. Perfusion scan will be documented separately. Electronically Signed On 03-28-2025 23:11:55 CDT by ANTON RON [email or web address]
[2025-03-16 10:34] VITALS: BMI 30.1
--- NOTE | 2025-03-16 10:36 | NMCV_ITS ---
NM akbar perf SPECT r/s* [id number] Cy Bajwa Age: 60 Gender: M : 1965 Exam Date: 03/16/2025 11:14 Ordering Phys: Anton Ron MD ([email or web address]) Technologist: JOSIANE Pierson Exam Location: [facility] Indications: CP STRESS TEST Please see separate stress test report in [facility] for full findings IMAGE PROTOCOL Rest/Stress 1 Lexiscan Day Radiopharmaceutical Dose (mCi) Administration Site Administered by Rest: Tc-99m 10.8 IV JOSIANE Pierson Sestamibi Stress:Tc-99m 32.8 IV JOSIANE Barker Sestamibi Rest: 16-Mar-2025 60 Discovery 630 Stress: 16-Mar-2025 30 Discovery 630 0.4mg Lexiscan.images obtained in supine and prone position. SPECT RESULTS Technical Quality: Good Raw Data Analysis: Normal Image Corrections: No attenuation or motion correction applied Summed Stress Score: 1 Summed Rest Score: 2 Summed Difference Score: 1 PERFUSION FINDINGS There is a small sized area of partially reversible perfusion defect noted in the inferolateral wall. This is consistent with small area of prior infarct with minimal hailey-infarct ischemia. FUNCTIONAL RESULTS (calculated via Gated SPECT) Stress Image LV EF (%): 46 Stress EDV (mL):138 TID: 1.13 Stress ESV (mL):74 FUNCTIONAL FINDINGS: LV systolic function is mildly reduced IMPRESSIONS 1. Small area of prior infarct with minimal hailey-infarct ischemia seen in inferolateral wall. 2. LV systolic function is midlly reduced with EF of 46% Jose Cobb MD (Electronically Signed) Final Date: 23 Mar 2025 16:08 S
[2025-03-16] MEDS: regadenoson 0.4 Mg/5 ml Syringe IVP (11:52)
[2025-03-16 11:57] VITALS: BP 130/69; PULSE 70
== END 2025-03-16 09:45 | disposition home or self-care (01) ==
LOC: CDL 09:46
PROVIDERS: PCP Family Medicine; Visit Provider Internal Medicine Cardiovascular Disease
DX: R07.9 Chest pain, unspecified (principal); R93.1 Abnormal findings on diagnostic imaging of heart and coronary circulation
CPT/HCPCS: 36415; 78452; 93017; 96374; A9500; J2785

== ENCOUNTER → 2025-03-21 10:36 | Outpatient (BNVA) | payer MEDICARE, SELFPAY | PROVIDERS: PCP Family Medicine; Visit Provider Internal Medicine | DX: E11.40 Type 2 diabetes mellitus with diabetic neuropathy, unspecified (principal); E11.42 Type 2 diabetes mellitus with diabetic polyneuropathy; I10 Essential (primary) hypertension; E78.1 Pure hyperglyceridemia; E11.59 Type 2 diabetes mellitus with other circulatory complications; I25.10 Atherosclerotic heart disease of native coronary artery without angina pectoris; E11.9 Type 2 diabetes mellitus without complications; E11.319 Type 2 diabetes mellitus with unspecified diabetic retinopathy without macular edema | CPT/HCPCS: 99214 ==

== ENCOUNTER 2025-03-28 12:40 | Outpatient (CLI) | payer MEDICARE, SELFPAY ==
[2025-03-28 14:00] LABS: Creatinine Urine, Random 70 mg/dL (39-259); Microalbum Creatinine Ratio Ur 157 mg/dL (0-20); Microalbumin Random Urine 11 ug/dL (0-20)
[2025-03-28 14:08] LABS: Alanine Aminotransferase 21 U/L (0-41); Albumin Level 3.9 g/dL (3.5-5.2); Alkaline Phosphatase 85 U/L (40-130); Blood Urea Nitrogen 16 mg/dL (8-23); Carbon Dioxide 20 mmol/L (22-29); Chloride 102 mmol/L (98-107); Chol HDL Ratio 5.52 mg/dL (1.0-5.00); Cholesterol 149 mg/dL (0-200); Globulin 2.7 g/dL (1.3-4.6); Glomerular Filtration Rate 136.5 mL/min (90-130); Glucose 261 mg/dL (65-115); HDL Cholesterol 27 mg/dL (60-100); Osmolality Calculated 294 mOsm/kg (285-295); Sodium 137 mmol/L (136-145); Total Bilirubin 0.4 mg/dL (0.15-1.2); Total Protein 6.6 g/dL (6.6-8.7); Triglycerides 753 mg/dL (0-150)
[2025-03-28 14:09] LABS: Anion Gap 19.5 (5-19); Aspartate Amino Transferase 20 U/L (0-40); Estmated Average Glucose 212; Potassium 4.5 mmol/L (3.5-5.1)
[2025-03-28 14:22] LABS: Vitamin B12 400 pg/mL (232-1245)
[2025-03-28 14:30] LABS: LDL Cholesterol Direct 30 mg/dL (0-100)
== END 2025-03-28 12:41 | disposition home or self-care (01) ==
PROVIDERS: PCP Family Medicine; Visit Provider Internal Medicine
DX: E11.42 Type 2 diabetes mellitus with diabetic polyneuropathy (principal); E11.40 Type 2 diabetes mellitus with diabetic neuropathy, unspecified; I10 Essential (primary) hypertension
CPT/HCPCS: 36415; 80053; 80061; 82044; 82607; 83036; 83721

== ENCOUNTER → 2025-04-20 11:03 | Outpatient (BNVA) | payer MEDICARE, SELFPAY | PROVIDERS: PCP Family Medicine; Visit Provider Internal Medicine | DX: E11.40 Type 2 diabetes mellitus with diabetic neuropathy, unspecified (principal); E11.42 Type 2 diabetes mellitus with diabetic polyneuropathy; E11.319 Type 2 diabetes mellitus with unspecified diabetic retinopathy without macular edema; E11.59 Type 2 diabetes mellitus with other circulatory complications; E11.9 Type 2 diabetes mellitus without complications; E78.1 Pure hyperglyceridemia; I10 Essential (primary) hypertension | CPT/HCPCS: 99214 ==

== ENCOUNTER → 2025-07-17 14:14 | Outpatient (BNVA) | payer MEDICARE, SELFPAY | PROVIDERS: PCP Family Medicine; Visit Provider Student in an Organized Health Care Education/Training Program | DX: M25.511 Pain in right shoulder (principal); M75.41 Impingement syndrome of right shoulder | CPT/HCPCS: 20610; 73030; 99214; J3301; J9999 ==

== ENCOUNTER → 2025-07-26 16:06 | Outpatient (BNVA) | payer MEDICARE, SELFPAY | PROVIDERS: PCP Family Medicine; Visit Provider Internal Medicine Cardiovascular Disease | DX: I25.5 Ischemic cardiomyopathy (principal); R42 Dizziness and giddiness; E11.42 Type 2 diabetes mellitus with diabetic polyneuropathy; Z95.810 Presence of automatic (implantable) cardiac defibrillator; Z79.84 Long term (current) use of oral hypoglycemic drugs | CPT/HCPCS: 99214 ==

== ENCOUNTER → 2025-08-07 11:27 | Outpatient (BNVA) | payer MEDICARE, SELFPAY | PROVIDERS: PCP Family Medicine; Visit Provider Internal Medicine | DX: E11.40 Type 2 diabetes mellitus with diabetic neuropathy, unspecified (principal); E78.1 Pure hyperglyceridemia; E11.59 Type 2 diabetes mellitus with other circulatory complications; I25.10 Atherosclerotic heart disease of native coronary artery without angina pectoris; I10 Essential (primary) hypertension; E11.319 Type 2 diabetes mellitus with unspecified diabetic retinopathy without macular edema; Z79.84 Long term (current) use of oral hypoglycemic drugs | CPT/HCPCS: 99214 ==

== ENCOUNTER → 2025-08-15 13:51 | Outpatient (BNVA) | payer MEDICARE, SELFPAY | PROVIDERS: PCP Family Medicine; Visit Provider Internal Medicine Cardiovascular Disease | DX: Z45.02 Encounter for adjustment and management of automatic implantable cardiac defibrillator (principal) | CPT/HCPCS: 93296 ==

== ENCOUNTER → 2025-10-24 10:25 | Outpatient (BNVA) | payer MEDICARE, SELFPAY | PROVIDERS: PCP Family Medicine; Visit Provider Physician Assistant | DX: M75.41 Impingement syndrome of right shoulder (principal); Z71.89 Other specified counseling | CPT/HCPCS: 20610; 99213; J3301; J9999 ==